=== PATIENT | male | born 1965 | race Caucasian/White ===

== ENCOUNTER 2019-12-15 12:57 | Outpatient (CLI) | payer BC, SELFPAY ==
[2019-12-15 11:30] LABS: Blood Urea Nitrogen 24 mg/dL (9-20); Calcium 9.3 mg/dL (8.4-10.2); Carbon Dioxide 26 mmol/L (22-30); Chloride 97 mmol/L (98-107); Estimated Glomerular Filt Rate > 60; Glucose 196 mg/dL (75-110); Potassium 4.2 mmol/L (3.4-5.0); Sodium 136 mmol/L (137-145)
== END 2019-12-15 12:58 | disposition home or self-care (01) ==
PROVIDERS: PCP Internal Medicine; Visit Provider Internal Medicine
DX: E11.10 Type 2 diabetes mellitus with ketoacidosis without coma (principal); E13.29 Other specified diabetes mellitus with other diabetic kidney complication
CPT/HCPCS: 36415; 80048; 84443

== ENCOUNTER 2020-07-17 13:17 | Outpatient (CLI) | payer BC, SELFPAY ==
[2020-07-17 14:13] LABS: Alanine Aminotransferase 21 U/L (4-50); Albumin Level 4.5 g/dL (3.5-5.1); Alkaline Phosphatase 71 U/L (38-126); Anion Gap 10 mmol/L (8-16); Aspartate Amino Transferase 21 U/L (17-59); Bilirubin,Total 0.5 mg/dL (0.2-1.3); Blood Urea Nitrogen 19 mg/dL (9-20); Calcium 9.8 mg/dL (8.4-10.2); Carbon Dioxide 29 mmol/L (22-30); Chloride 101 mmol/L (98-107); Cholesterol 119 mg/dL (0-200); Estimated Glomerular Filt Rate > 60; Glucose 155 mg/dL (75-110); HDL Direct 48 mg/dL; Potassium 4.5 mmol/L (3.4-5.0); Sodium 140 mmol/L (137-145); Triglycerides 69 mg/dL (<150)
[2020-07-17 14:23] LABS: LDL Cholesterol Direct 61 mg/dL
[2020-07-17 14:25] LABS: Hemoglobin A1C 8.1 % (<5.7)
[2020-07-17 14:42] LABS: Prostate Specific Antigen 1.3 ng/mL (< OR = 4.0)
== END 2020-07-17 13:18 | disposition home or self-care (01) ==
LOC: ANHLAB 13:20
PROVIDERS: PCP Internal Medicine; Visit Provider Nurse Practitioner
DX: E78.5 Hyperlipidemia, unspecified (principal); E11.9 Type 2 diabetes mellitus without complications; Z12.5 Encounter for screening for malignant neoplasm of prostate
CPT/HCPCS: 36415; 80053; 80061; 83036; 84153; G0103

== ENCOUNTER 2020-07-31 12:42 | Outpatient (CLI) | payer BC, SELFPAY ==
--- NOTE | ~2020-07-31 | MR_ITS ---
EXAMINATION: MR lumbar spine wo con EXAM DATE: 07/31/2020 13:54 INDICATION: Low back pain. TECHNIQUE: Multi-sequential, multiplanar MR images of the lumbar spine were obtained without contrast . Sagittal T1, T2, T2 fat saturation images. Axial T2 weighted images. There is no prior study for comparison. FINDINGS: There is moderate disc disease at L4-5 and L5-S1, mild to moderate at L2-3 and L3-4. There is 2 mm retrolisthesis L2 on L3 and L3 on L4 and L4 on L5. There is 3 mm retrolisthesis L5 on S1. The conus medullaris terminates at the L1 level and has normal signal intensity and morphology. There a re no suspicious marrow signal abnormalities. There is mild lumbar dextroscoliosis. Paraspinal soft t issue is unremarkable. Level by level evaluation: T12-L1: Disc does not extend beyond the endplate margin. Facet arthropathy: Mild. Neural foraminal stenosis: No stenosis. Central canal stenosis: No stenosis. L1-L2: Disc does not extend beyond the endplate margin. Facet arthropathy: Mild. Neural foraminal stenosis: No stenosis. Central canal stenosis: No stenosis. L2-L3: There is a mild diffuse disc bulge. Facet arthropathy: Mild. Neural foraminal stenosis: Minimal bilateral. Central canal stenosis: Mild. L3-L4: There is a moderate diffuse disc bulge. Facet arthropathy: Mild. Neural foraminal stenosis: Mild to moderate bilateral. Central canal stenosis: Mild. L4-L5: There is a moderate diffuse disc bulge. Facet arthropathy: Mild to moderate. Neural foraminal stenosis: Moderate right, mild to moderate left. Central canal stenosis: Mild. L5-S1: There is a mild diffuse disc bulge. Facet arthropathy: Mild. Neural foraminal stenosis: Mild to moderate right, mild left. Central canal stenosis: Mild. IMPRESSION: 1. Up to moderate lower lumbar spondylosis. 2. Mild dextroscoliosis. Reviewed, dictated and finalized at location A.
== END 2020-07-31 12:43 | disposition home or self-care (01) ==
PROVIDERS: PCP Internal Medicine; Visit Provider Internal Medicine
DX: G89.29 Other chronic pain (principal); M54.5 Low back pain; M47.26 Other spondylosis with radiculopathy, lumbar region
CPT/HCPCS: 72148

== ENCOUNTER 2021-06-03 12:03 | Outpatient (CLI) | payer BC, SELFPAY ==
[2021-06-03 13:26] LABS: Alanine Aminotransferase 30 U/L (4-50); Albumin Level 4.1 g/dL (3.5-5.1); Alkaline Phosphatase 83 U/L (38-126); Anion Gap 5 mmol/L (8-16); Bilirubin,Total 0.3 mg/dL (0.2-1.3); Blood Urea Nitrogen 18 mg/dL (9-20); Calcium 8.8 mg/dL (8.4-10.2); Carbon Dioxide 24 mmol/L (22-30); Chloride 105 mmol/L (98-107); Cholesterol 108 mg/dL (0-200); Estimated Glomerular Filt Rate > 60; Glucose 150 mg/dL (65-110); HDL Direct 45 mg/dL; Potassium 4.2 mmol/L (3.4-5.0); Sodium 134 mmol/L (137-145); Triglycerides 63 mg/dL (<150)
[2021-06-03 13:34] LABS: LDL Cholesterol Direct 48 mg/dL
[2021-06-03 13:48] LABS: Aspartate Amino Transferase 26 U/L (17-59)
[2021-06-03 15:28] LABS: Vitamin D 25 Hydroxy 64.7 ng/mL
[2021-06-03 17:56] LABS: Hemoglobin A1C 8.5 % (<5.7)
== END 2021-06-03 12:04 | disposition home or self-care (01) ==
LOC: ANHLAB 12:05
PROVIDERS: PCP Internal Medicine; Visit Provider Internal Medicine
DX: E11.9 Type 2 diabetes mellitus without complications (principal); I10 Essential (primary) hypertension; E55.9 Vitamin D deficiency, unspecified; E78.5 Hyperlipidemia, unspecified
CPT/HCPCS: 36415; 80053; 80061; 82306; 83036

== ENCOUNTER 2021-12-09 12:42 | Outpatient (CLI) | payer BC, SELFPAY ==
[2021-12-09 13:33] LABS: Alanine Aminotransferase 32 U/L (4-50); Albumin Level 4.4 g/dL (3.5-5.1); Alkaline Phosphatase 91 U/L (38-126); Anion Gap 9 mmol/L (8-16); Aspartate Amino Transferase 28 U/L (17-59); Bilirubin,Total 0.4 mg/dL (0.2-1.3); Blood Urea Nitrogen 17 mg/dL (9-20); Calcium 9.6 mg/dL (8.4-10.2); Carbon Dioxide 27 mmol/L (22-30); Chloride 104 mmol/L (98-107); Cholesterol 130 mg/dL (0-200); Estimated Glomerular Filt Rate > 60; Glucose 140 mg/dL (65-110); HDL Direct 42 mg/dL; Potassium 4.3 mmol/L (3.4-5.0); Sodium 140 mmol/L (137-145); Triglycerides 96 mg/dL (<150)
[2021-12-09 13:44] LABS: LDL Cholesterol Direct 62 mg/dL
[2021-12-09 14:06] LABS: Hemoglobin A1C 8.3 % (<5.7)
[2021-12-09 14:45] LABS: Prostate Specific Antigen 2.4 ng/mL (< OR = 4.0)
[2021-12-09 14:47] LABS: Vitamin D 25 Hydroxy 55.3 ng/mL
== END 2021-12-09 12:43 | disposition home or self-care (01) ==
LOC: ANHLAB 12:43
PROVIDERS: PCP Internal Medicine; Visit Provider Internal Medicine
DX: E11.42 Type 2 diabetes mellitus with diabetic polyneuropathy (principal); I10 Essential (primary) hypertension; Z79.4 Long term (current) use of insulin; E55.9 Vitamin D deficiency, unspecified; E78.5 Hyperlipidemia, unspecified; Z12.5 Encounter for screening for malignant neoplasm of prostate
CPT/HCPCS: 36415; 80053; 80061; 82306; 83036; 84153; G0103

== ENCOUNTER 2022-11-15 11:18 | Outpatient (CLI) | payer OTHER, SELFPAY ==
[2022-11-15 13:11] LABS: Alanine Aminotransferase 31 U/L (6-50); Albumin Level 4.1 g/dL (3.5-5.1); Alkaline Phosphatase 88 U/L (38-126); Anion Gap 7 mmol/L (8-16); Aspartate Amino Transferase 29 U/L (17-59); Bilirubin,Total 0.5 mg/dL (0.2-1.3); Blood Urea Nitrogen 15 mg/dL (9-20); Calcium 8.9 mg/dL (8.4-10.2); Carbon Dioxide 29 mmol/L (22-30); Chloride 104 mmol/L (98-107); Estimated Glomerular Filt Rate > 60; Glucose 145 mg/dL (65-110); Potassium 4.4 mmol/L (3.4-5.0); Sodium 140 mmol/L (137-145)
[2022-11-15 13:16] LABS: Creatinine Urine 173.7 mg/dL
[2022-11-15 13:19] LABS: Hemoglobin A1C 9.5 % (<5.7)
[2022-11-15 13:21] LABS: MALB Creatinine Ratio 33.4 mg/g (0-30)
[2022-11-15 13:48] LABS: Vitamin D 25 Hydroxy 38.9 ng/mL
== END 2022-11-15 11:19 | disposition home or self-care (01) ==
PROVIDERS: PCP Internal Medicine; Visit Provider Internal Medicine
DX: E78.5 Hyperlipidemia, unspecified (principal); E11.42 Type 2 diabetes mellitus with diabetic polyneuropathy; Z79.4 Long term (current) use of insulin; E55.9 Vitamin D deficiency, unspecified
CPT/HCPCS: 36415; 80053; 82043; 82306; 83036

== ENCOUNTER 2023-03-12 07:01 | Outpatient (CLI) | payer OTHER, SELFPAY ==
[2023-03-12 07:50] LABS: Alanine Aminotransferase 31 U/L (6-50); Albumin Level 4.3 g/dL (3.5-5.1); Alkaline Phosphatase 73 U/L (38-126); Anion Gap 4 mmol/L (8-16); Aspartate Amino Transferase 31 U/L (17-59); Bilirubin,Total 0.5 mg/dL (0.2-1.3); Blood Urea Nitrogen 18 mg/dL (9-20); Calcium 8.9 mg/dL (8.4-10.2); Carbon Dioxide 28 mmol/L (22-30); Chloride 104 mmol/L (98-107); Estimated Glomerular Filt Rate > 60; Glucose 196 mg/dL (65-110); Hemoglobin A1C 9.8 % (<5.7); Potassium 4.2 mmol/L (3.4-5.0); Sodium 136 mmol/L (137-145)
== END 2023-03-12 07:02 | disposition home or self-care (01) ==
PROVIDERS: Internal Medicine; PCP Family Medicine; Visit Provider Family Medicine
DX: E11.21 Type 2 diabetes mellitus with diabetic nephropathy (principal); I10 Essential (primary) hypertension
CPT/HCPCS: 36415; 80053; 83036

== ENCOUNTER 2023-06-08 01:07 | Day surgery (SDC) | payer OTHER, SELFPAY ==
[2023-05-25 10:01] VITALS: BMI 22.4
[2023-06-08 09:10] VITALS: BP 130/90; PULSE 78; RESP 18; TEMP 36.5; O2SAT 99
[2023-06-08] MEDS: LACTATED RINGERS 1,000 ML 150 ML IV CONT (09:30)
--- NOTE | 2023-06-08 09:33 | WPDANESEPPF ---
Anes - Initial Pre Proc Eval Procedure: Operation Date: 06/08/23 10:30 Proposed Procedures p Screening Colonoscopy - Prashanth Mora MD Date/Time: 06/08/23 09:33 Surgeon: Prashanth Mora MD Pre Op Diagnosis: neoplasm screening Patient Data Age: 57 Gender: M Height: 1.83 m Weight: 72 kg Last Vital Signs Temp 36.5 C 06/08/23 09:10 Pulse 78 06/08/23 09:10 Resp 18 06/08/23 09:10 BP 130/90 06/08/23 09:10 Pulse Ox 99 06/08/23 09:10 O2 Del Method Room Air 06/08/23 09:10 Allergies Allergy/AdvReac Type Severity Reaction Status Date / Time No Known Allergies Allergy Verified 06/08/23 09:09 Home Medications Medication Instructions Recorded Confirmed Type blood sugar diagnostic (Easy Touch #300 ea 01/04/20 05/25/23 Rx Test Strip) pen needle, diabetic 31 gauge x #200 ea 01/20/23 05/25/23 Rx 5/16 (Comfort EZ Pen [place]) atorvastatin 20 mg tablet 20 mg PO DAILY #90 tabs 03/17/23 05/25/23 Rx lisinopril 5 mg tablet 5 mg PO DAILY #90 tabs 03/17/23 05/25/23 Rx metformin 500 mg tablet 1,000 mg PO BID #360 tabs 03/17/23 05/25/23 Rx sertraline 50 mg tablet 50 mg PO DAILY #90 tabs 03/17/23 05/25/23 Rx sildenafil 50 mg tablet 50 mg PO DAILY PRN sexual activity 03/17/23 05/25/23 Rx #10 tabs trazodone 50 mg tablet 50 mg PO .prn #90 tabs 04/16/23 05/25/23 Rx hydrocodone 10 mg-acetaminophen 1 tablet PO .COMPLEX PRN pain #45 05/19/23 05/25/23 Rx 325 mg tablet tabs insulin glargine 100 unit/mL (3 42 unit (0.42 mL) subcut .COMPLEX 05/19/23 05/25/23 Rx mL) subcutaneous pen (Lantus #15 mL Solostar U-100 Insulin) Patient hx anesthesia problems: none Family hx anesthesia problems: none Results Review: All pre-operative results and documents have been reviewed as part of the pre-operative evaluation. [facility] Past Medical History Medical History Depression Erectile dysfunction associated with type 2 diabetes mellitus Essential (primary) hypertension Mixed hyperlipidemia Type 2 diabetes mellitus with diabetic polyneuropathy, with long-term current use of insulin Family History Family History Mother Patient's mother is in good health Sibling Patient's brother is in good health Father Patient's father is Social History Social History Smoking packs per day: 1 Smoking cigarettes per day: 20.0 Years smoked: 40 Smoking pack-years: 40.00 Smoking status: Current every day smoker Tobacco type: cigarettes Alcohol intake: never Substance use: current Substance use type: marijuana Other substance usage details: 3-4x/week Lack of Transportation: No Lack of Food: Never True Current Housing: I Have Housing Concerned About Future Housing: No Difficulty Paying Gas/Electric Bills: No Difficulty Paying for Meds: No Currently Unemployed: No Education: High School Diploma/GED Difficulty w/ Childcare or Family Care: No Living arrangements: with family Spiritual care concerns: No Anes - Eval Final PreProcedure Day of Procedure 06/08/23 09:33 Patient weight: normal Heart: regular rate and rhythm Lungs: clear to auscultation Airway: Mallampati scale class II Last oral intake: >/= 8 hours ASA classification: III Emergent: no Anesthetic plan: proceed Anesthesia type and monitoring: general GIVS and standard monitoring Results Review: All pre-operative results and documents have been reviewed as part of the pre-operative evaluation. Informed Consent: The patient's anesthetic plan and its attendant risks and benefits were discussed with the patient/family/POA. Questions were solicited and answers provided to the satisfaction of the patient/family/POA.
--- NOTE | 2023-06-08 10:08 | PM.HPGS ---
History of Present Illness History of Present Illness Consent: Risks, benefits, and alternatives have been discussed and questions answered. Patient agrees to proceed with procedure. Chief complaint: neoplasm screening Narrative: Adeel Ramos is a 57 year old male Presents for screening colonoscopy. Patient's current weight appetite and bowel movements are normal. Patient denies abdominal pain. He has had no bleeding. Family history noncontributory. This is for screening colonoscopy. Review of Systems Review of Systems: Review of systems noncontributory. [facility] Past Medical History Medical History Depression Erectile dysfunction associated with type 2 diabetes mellitus Essential (primary) hypertension Mixed hyperlipidemia Type 2 diabetes mellitus with diabetic polyneuropathy, with long-term current use of insulin Family History Family History Mother Patient's mother is in good health Sibling Patient's brother is in good health Father Patient's father is Social History Social History Smoking packs per day: 1 Smoking cigarettes per day: 20.0 Years smoked: 40 Smoking pack-years: 40.00 Smoking status: Current every day smoker Tobacco type: cigarettes Alcohol intake: never Substance use: current Substance use type: marijuana Other substance usage details: 3-4x/week Lack of Transportation: No Lack of Food: Never True Current Housing: I Have Housing Concerned About Future Housing: No Difficulty Paying Gas/Electric Bills: No Difficulty Paying for Meds: No Currently Unemployed: No Education: High School Diploma/GED Difficulty w/ Childcare or Family Care: No Living arrangements: with family Spiritual care concerns: No Meds Home Medications and Allergies Home Medications Medication Instructions Recorded Confirmed Type blood sugar diagnostic (Easy Touch #300 ea 01/04/20 05/25/23 Rx Test Strip) pen needle, diabetic 31 gauge x #200 ea 01/20/23 05/25/23 Rx 5/16 (Comfort EZ Pen [place]) atorvastatin 20 mg tablet 20 mg PO DAILY #90 tabs 03/17/23 05/25/23 Rx lisinopril 5 mg tablet 5 mg PO DAILY #90 tabs 03/17/23 05/25/23 Rx metformin 500 mg tablet 1,000 mg PO BID #360 tabs 03/17/23 05/25/23 Rx sertraline 50 mg tablet 50 mg PO DAILY #90 tabs 03/17/23 05/25/23 Rx sildenafil 50 mg tablet 50 mg PO DAILY PRN sexual activity 03/17/23 05/25/23 Rx #10 tabs trazodone 50 mg tablet 50 mg PO .prn #90 tabs 04/16/23 05/25/23 Rx hydrocodone 10 mg-acetaminophen 1 tablet PO .COMPLEX PRN pain #45 05/19/23 05/25/23 Rx 325 mg tablet tabs insulin glargine 100 unit/mL (3 42 unit (0.42 mL) subcut .COMPLEX 05/19/23 05/25/23 Rx mL) subcutaneous pen (Lantus #15 mL Solostar U-100 Insulin) Allergies Allergy/AdvReac Type Severity Reaction Status Date / Time No Known Allergies Allergy Verified 06/08/23 09:09 Vital Signs Vital Signs - 24 hr 06/08/23 09:10 Temperature 97.7 F Pulse Rate 78 Respiratory Rate 18 Blood Pressure 130/90 Pulse Oximetry 99 Oxygen Delivery Room Air Exam Narrative: physical exam reveals patient to be alert. Vital signs stable. HEENT exam is unremarkable. Patient is anicteric. Lungs are clear to auscultation and percussion. Heart is without murmur or extra sounds. Abdomen bowel sounds are present soft nontender with no organomegaly. Digital external rectal exam normal. Assessment and Plan Assessment and plan (1) Screening for colon cancer: Code(s): Z12.11 - Encounter for screening for malignant neoplasm of colon Status: Acute Assessment and Plan: Patient presents for screening colonoscopy. He appears to be at average risk for colon polyps. Further recommendations will be given after endoscopy.
[2023-06-08] MEDS: SIMETHICONE ORAL SUSPENSION 20 MG/0.3 ML 30 ML BOTTLE 0.6 ML IRRIGATION (10:28)
[2023-06-08 10:42] VITALS: BP 125/79; PULSE 67; RESP 21; O2SAT 100
[2023-06-08 10:52] VITALS: BP 132/80; PULSE 57; RESP 25; O2SAT 100
[2023-06-08 11:02] VITALS: BP 124/97; PULSE 59; RESP 25; O2SAT 99
[2023-06-08 17:16] LABS: Glucose Point of Care 216 mg/dl (65-105)
[2023-06-09 13:52] LABS: Glucose Point of Care 241 mg/dl (65-105)
== END 2023-06-08 11:09 | disposition home or self-care (01) ==
PROVIDERS: PCP Family Medicine; Visit Provider Internal Medicine Gastroenterology
PROC: 0DJD8ZZ Inspection of Lower Intestinal Tract, Via Natural or Artificial Opening Endoscopic (ICD-10-PCS; CPT 45378; principal; 2023-06-08 10:30)
DX: Z12.11 Encounter for screening for malignant neoplasm of colon (principal); D12.4 Benign neoplasm of descending colon; D12.8 Benign neoplasm of rectum; E11.42 Type 2 diabetes mellitus with diabetic polyneuropathy; I10 Essential (primary) hypertension; E78.5 Hyperlipidemia, unspecified; F32.A Depression, unspecified; F17.210 Nicotine dependence, cigarettes, uncomplicated; F12.90 Cannabis use, unspecified, uncomplicated; Z79.84 Long term (current) use of oral hypoglycemic drugs; Z79.4 Long term (current) use of insulin; Z79.891 Long term (current) use of opiate analgesic
CPT/HCPCS: 45385; 82948; 88305; J2704; J7120

== ENCOUNTER 2024-03-15 12:49 | Outpatient (CLI) | payer OTHER, SELFPAY ==
[2024-03-15 13:43] LABS: Hemoglobin A1C 9.8 % (<5.7)
[2024-03-16 23:54] LABS: Amphetamines NEGATIVE ng/mL (<500); Barbiturates NEGATIVE ng/mL (<300); Benzodiazepines NEGATIVE ng/mL (<100); Cocaine Metabolite NEGATIVE ng/mL (<150); Marijuana Metabolite POSITIVE ng/mL (<20); Methadone Metabolite NEGATIVE ng/mL (<100); Opiates POSITIVE ng/mL (<100); Oxidant NEGATIVE mcg/mL (<200); pH 5.1 (4.5-9.0)
== END 2024-03-15 12:50 | disposition home or self-care (01) ==
PROVIDERS: PCP Nurse Practitioner; Visit Provider Nurse Practitioner Family
DX: E11.21 Type 2 diabetes mellitus with diabetic nephropathy (principal); Z79.899 Other long term (current) drug therapy
CPT/HCPCS: 36415; 80307; 83036

== ENCOUNTER 2024-11-07 13:52 | Outpatient (CLI) | payer OTHER, SELFPAY ==
[2024-11-07 14:43] LABS: Hemoglobin A1C 9.9 % (<5.7)
--- OUTSIDE RECORDS SUMMARY | 2024-11-10 13:48 | XMS_ITS | Clinical Summary ---
Author Organization [facility] Address [address] [place] [address] Care Team Providers Care Quality Analyst/Technical Writer Name Role Phone Trell Crow Primary Care Provider [phone] Chris Caraballo MD Unavailable [phone] Allergies No known active allergies Medications insulin glargine 100 unit/mL (3 mL) pen for injection Inject 36 Units under the skin 2 (two) times a day as needed Active HYDROcodone-kimberly taminophen (NORCO) 7.5-325 mg per tabletIndicatio ns:Pain Take 1 tablet by mouth 2 (two) times a day Take 1 tab in the morning and 1/2 tab at night Active ondansetron (ZOFRAN) 4 mg tablet Take 1 tablet (4 mg total) by mouth 3 (three) times a day Active albuterol HFA (PROVENTIL HFA,VENTOLIN HFA,PROAIR HFA) 90 mcg/actuation inhaler Inhale 2 puffs every 4 (four) hours as needed for shortness of breath 4 Active nicotine polacrilex (NICORETTE) 2 mg gum Chew 1 each (2 mg total) every 4 (four) hours as needed for smoking cessation 100 each [address] (PROTONIX) 40 mg EC tabletIndicatio ns:GI Bleed,large gastric ulcers Take 1 tablet (40 mg total) by mouth 2 (two) times a day 60 tablet 5 4 03/13/20 25 Active blood-glucose meter,continuou s (Dexcom G7 Knock Up Assembler) misc Use as directed. 1 each 4 Active blood-glucose sensor (Dexcom G7 Sensor) device Use as directed. Change sensor every 10 days. 3 each 4 Active Active Problems Problem Noted Date Diagnosed Date Diabetic ketoacidosis withou t coma associated with type 2 diabetes mellitus (CMS/HCC) 09/09/2024 Upper abdominal pain 09/09/2024 Encounters Date Type Department Care Team Description 09/22/20 24 Telephone [facility] Gastroenterology at [address] [place] [id number] Stephanie Hayden 09/13/20 24 6:05 PM DEBLOCKER - 09/13/20 24 6:40 PM DEBLOCKER Surgery [address] [address] Chris Caraballo MD ESOPHAGOGASTRODUODENOSCOPY BIOPSY 09/13/20 3:29 PM DEBLOCKER Anesthesia Event [address] [address] Manish Burnett MD Kory, Christopher James, MD 09/09/20 6:20 PM DEBLOCKER - 09/14/20 24 3:22 PM DEBLOCKER Hospital Encounter [facility] IMU [address] [place] [address] Ortiz Treviño MD Masetti, Paolo, MD Sinha, Chandni, MD Nations, Matthew Austin, DO Diabetic ketoacidosis without coma associated with type 2 diabetes mellitus (CMS/HCC) (HCC) (Primary Dx); Lactic acidosis; Upper abdominal pain Discharge Disposition: Discharge to home or self care from Last 3 Months Social History Tobacco Use Types Packs/Day Years Used Date Smoking Tobacco: Every Day Cigarettes 1 40 Passive Smoke Exposure: Current Smokeless Tobacco: Current Tobacco Cessation:Ready to Q uit: Not Asked; Counseling Given: Not Answered Comments:Has not smoke in 5-6 days because not feeling well. Says he wants to quit . [facility] Utilities Answer Date Recorded In the past 12 months has e TRADE TO REBATE, gas, oil, or water [address] threatened to shut off services in your home? No 09/12/2024 Social Connection and Isolat ion Panel [NHANES] Answer Date Recorded In a typical week, how many times do you talk on the phone with family, friends, or neighbors? More than three times a week 09/12/2024 How often do you get togethe r with friends or relatives? More than three times a week 09/12/2024 How often do you attend chur ch or mu-ism services? Never 09/12/2024 Do you belong to any clubs o r organizations such as pentecostal groups, unions, fraternal or athletic groups, or school groups? No 09/12/2024 How often do you attend meet ings of the clubs or organizations you belong to? Never 09/12/2024 Are you , , di vorced, , never , or living with a partner? Living with partner 09/12/2024 Overall Financial Resource Strain (CARDIA) Answe r Date Recorded How hard is it for you to pa y for the very basics like food, housing, medical care, and heating? Not hard at all 09/12/2024 Hunger Vital Sign Answer Date Recorded Within the past 12 months, y ou worried that your food would run out before you got the money to buy more. Never true 09/12/20 24 Within the past 12 months, t he food you bought just didn't last and you didn't have money to get more. Never true 09/12/2024 PRAPARE - Transportation Answer Date Re corded In the past 12 months, has l ack of transportation kept you from medical appointments or from getting medications? No 08/20 In the past 12 months, has l ack of transportation kept you from meetings, work, or from getting things needed for daily living? No 09/12/2024 Housing Stability Vital Sign Answer Johnathan e Recorded In the last 12 months, was t here a time when you were not able to pay the mortgage or rent on time? No 09/12/2024 In the past 12 months, how m any times have you moved where you were living? 0 09/12/2024 At any time in the past 12 m [facility], were you homeless or living in a [place] facility (including now)? No 09/12/2024 Personal Safety Answer Date Recorded Have you ever been in or are you currently in a harmful physical or emotional relationship or is someone making you feel afraid or unsafe? Denies 09/13/2024 Sex and Gender Information Value Date Recorded Sex Assigned at Not on file Legal Sex Male 3:28 PM DEBLOCKER Gender Identity Not on file Sexual Orientation Not on file Obstetrics History Last Filed Vital Signs Vital Sign Reading Time Taken Comments Blood Pressure 128/64 09/14/2024 11:19 AM DEBLOCKER Pulse 64 09/14/2024 11:19 AM DEBLOCKER Temperature 36.7 ??C (98 ??F) 09/14/2024 11: 19 AM DEBLOCKER Respiratory Rate 18 09/14/2024 11:1 9 AM DEBLOCKER Oxygen Saturation 100% 09/14/2024 11: 19 AM DEBLOCKER Inhaled Oxygen Concentration - - Weight 70.6 kg (155 lb 10.3 oz) 024 10:25 PM DEBLOCKER Height 182.9 cm (6') 09/09/2024 10:25 PM DEBLOCKER Body Mass Index 21.11 09/09/2024 10:25 PM DEBLOCKER Plan of Treatment Health Maintenance Due Date Last Done Comments Albumin Creatinine Ratio, Urine 1965 Colon Cancer Screening-Colonoscopy 1965 Depression Screening 1965 Hemoglobin A1C 1965 Hepatitis C Screening 1965 Prostate Cancer Screening-PSA 1965 Dilated Eye Exam 1965 Foot Exam 1965 Pneumococcal vaccine <65 (1 of 2 - PCV) 1971 DTaP/Tdap/Td Vaccine (1 - Tdap) 1976 Hepatitis B Screening 1983 Regular Well Visit/Exam 18-64 1983 Lung Cancer Screening 2015 Zoster Vaccine (1 of 2) 2015 Lipid Panel 09/13/2025 09/13/2024 eGFR 09/14/2025 09/14/2024, 08/20, 09/12/2024, Additional history exists Covid-19 Vaccine Completed 08/07/2024, , 10/23/2021, Additional history exists Influenza Vaccine Completed 08/07/2024, , 08/26/2022, Additional history exists Procedures Procedure Name Priority Date/Time Associated Diagnosis Comments POCT GLUCOSE DEVICE Routine 09/14/2024 12:01 PM DEBLOCKER POCT GLUCOSE DEVICE Routine 09/14/2024 8:05 AM DEBLOCKER EGFR Routine 09/14/2024 2:45 AM DEBLOCKER COMPREHENSIVE METABOLIC PANEL Routine 2:45 AM DEBLOCKER POCT GLUCOSE DEVICE Routine 09/14/2024 2:11 AM DEBLOCKER POCT GLUCOSE DEVICE Routine 09/13/2024 8:18 PM DEBLOCKER POCT GLUCOSE DEVICE Routine 09/13/2024 4:43 PM DEBLOCKER ESOPHAGOGASTRODUODENOSCOPY BIOPSY 09/13/2024 3:23 PM DEBLOCKER Upper abdominal pain POCT GLUCOSE DEVICE Routine 09/13/2024 3:23 PM DEBLOCKER EGD 09/13/2024 2:39 PM DEBLOCKER POCT GLUCOSE DEVICE Routine 09/13/2024 11:59 AM DEBLOCKER SURGICAL PATHOLOGY STAT 09/13/2024 10:02 AM DEBLOCKER Upper abdominal pain POCT GLUCOSE DEVICE Routine 09/13/2024 8:10 AM DEBLOCKER US RUQ IP Routine 09/13/2024 7:35 AM DEBLOCKER EGFR Routine 09/13/2024 1:59 AM DEBLOCKER LIPID PANEL Routine 09/13/2024 1:59 AM DEBLOCKER COMPREHENSIVE METABOLIC PANEL Routine 1:59 AM DEBLOCKER POCT GLUCOSE DEVICE Routine 09/13/2024 1:51 AM DEBLOCKER POCT GLUCOSE DEVICE Routine 09/12/2024 8:45 PM DEBLOCKER POCT GLUCOSE DEVICE Routine 09/12/2024 4:23 PM DEBLOCKER POCT GLUCOSE DEVICE Routine 09/12/2024 3:35 PM DEBLOCKER POCT GLUCOSE DEVICE Routine 09/12/2024 3:10 PM DEBLOCKER POCT GLUCOSE DEVICE Routine 09/12/2024 12:20 PM DEBLOCKER POCT GLUCOSE DEVICE Routine 09/12/2024 7:56 AM DEBLOCKER POCT GLUCOSE DEVICE Routine 09/12/2024 2:10 AM DEBLOCKER EGFR Routine 09/12/2024 2:08 AM DEBLOCKER COMPREHENSIVE METABOLIC PANEL Routine 2:08 AM DEBLOCKER POCT GLUCOSE DEVICE Routine 09/11/2024 8:41 PM DEBLOCKER POCT GLUCOSE DEVICE Routine 09/11/2024 4:49 PM DEBLOCKER POCT GLUCOSE DEVICE Routine 09/11/2024 11:35 AM DEBLOCKER LIPASE Routine 09/11/2024 9:35 AM DEBLOCKER POCT GLUCOSE DEVICE Routine 09/11/2024 7:44 AM DEBLOCKER POCT GLUCOSE DEVICE Routine 09/11/2024 6:45 AM DEBLOCKER POCT GLUCOSE DEVICE Routine 09/11/2024 5:55 AM DEBLOCKER POCT GLUCOSE DEVICE Routine 09/11/2024 4:47 AM DEBLOCKER EGFR Routine 09/11/2024 3:48 AM DEBLOCKER DIFFERENTIAL AUTO Routine 09/11/2024 3:48 AM DEBLOCKER CBC WITH AUTO DIFFERENTIAL Routine 09/11 3:48 AM DEBLOCKER COMPREHENSIVE METABOLIC PANEL Routine 3:48 AM DEBLOCKER POCT GLUCOSE DEVICE Routine 09/11/2024 3:42 AM DEBLOCKER POCT GLUCOSE DEVICE Routine 09/11/2024 2:33 AM DEBLOCKER POCT GLUCOSE DEVICE Routine 09/11/2024 1:20 AM DEBLOCKER EGFR Timed 09/11/2024 12:37 AM DEBLOCKER BASIC METABOLIC PANEL Timed 09/11/2024 12:37 AM DEBLOCKER POCT GLUCOSE DEVICE Routine 09/11/2024 12:17 AM DEBLOCKER POCT GLUCOSE DEVICE Routine 09/10/2024 11:10 PM DEBLOCKER POCT GLUCOSE DEVICE Routine 09/10/2024 10:05 PM DEBLOCKER POCT GLUCOSE DEVICE Routine 09/10/2024 9:02 PM DEBLOCKER POCT GLUCOSE DEVICE Routine 09/10/2024 8:00 PM DEBLOCKER POCT GLUCOSE DEVICE Routine 09/10/2024 6:45 PM DEBLOCKER EGFR Timed 09/10/2024 6:43 PM DEBLOCKER BASIC METABOLIC PANEL Timed 09/10/2024 6:43 PM DEBLOCKER POCT GLUCOSE DEVICE Routine 09/10/2024 5:44 PM DEBLOCKER POCT GLUCOSE DEVICE Routine 09/10/2024 4:43 PM DEBLOCKER POCT GLUCOSE DEVICE Routine 09/10/2024 3:45 PM DEBLOCKER POCT GLUCOSE DEVICE Routine 09/10/2024 2:47 PM DEBLOCKER POCT GLUCOSE DEVICE Routine 09/10/2024 1:48 PM DEBLOCKER POCT GLUCOSE DEVICE Routine 09/10/2024 1:08 PM DEBLOCKER EGFR Timed 09/10/2024 12:36 PM DEBLOCKER BASIC METABOLIC PANEL Timed 09/10/2024 12:36 PM DEBLOCKER POCT GLUCOSE DEVICE Routine 09/10/2024 11:[address] ABDOMEN PELVIS WO CONTRAST IP Routine 10:10 AM DEBLOCKER POCT GLUCOSE DEVICE Routine 09/10/2024 9:49 AM DEBLOCKER MRSA ONLY (STAPHYLOCOCCUS AUREUS) PCR Routine 09/10/2024 9:06 AM DEBLOCKER POCT GLUCOSE DEVICE Routine 09/10/2024 8:47 AM DEBLOCKER LIPASE Routine 09/10/2024 8:07 AM DEBLOCKER AMYLASE Routine 09/10/2024 8:07 AM DEBLOCKER CORTISOL Routine 09/10/2024 8:07 AM DEBLOCKER LACTATE Routine 09/10/2024 8:07 AM DEBLOCKER POCT GLUCOSE DEVICE Routine 09/10/2024 7:46 AM DEBLOCKER POCT GLUCOSE DEVICE Routine 09/10/2024 6:41 AM DEBLOCKER POCT GLUCOSE DEVICE Routine 09/10/2024 5:39 AM DEBLOCKER POCT GLUCOSE DEVICE Routine 09/10/2024 4:40 AM DEBLOCKER POCT GLUCOSE DEVICE Routine 09/10/2024 3:35 AM DEBLOCKER EGFR Timed 09/10/2024 2:36 AM DEBLOCKER SEPSIS LACTATE WITH REFLEX Timed 09/10 2:36 AM DEBLOCKER TROPONIN T HIGH-SENSITIVITY 6-HOUR Timed 09/10/2024 2:36 AM DEBLOCKER BASIC METABOLIC PANEL Timed 09/10/2024 2:36 AM DEBLOCKER POCT GLUCOSE DEVICE Routine 09/10/2024 2:30 AM DEBLOCKER POCT GLUCOSE DEVICE Routine 09/10/2024 1:33 AM DEBLOCKER TSH Add-On 09/10/2024 1:08 AM DEBLOCKER CREATINE KINASE (CK), TOTAL Add-On 08/20 1:08 AM DEBLOCKER BLOOD CULTURE STAT 09/10/2024 1:08 AM DEBLOCKER BLOOD CULTURE STAT 09/10/2024 1:08 AM DEBLOCKER CRITICAL CARE Routine 09/10/2024 12:51 AM DEBLOCKER Diabetic ketoacidosis without coma associated with type 2 diabetes mellitus ([facility]/HCC) (HCC) Lactic acidosis GLUCOSE, WHOLE BLOOD STAT 09/10/2024 12:27 AM DEBLOCKER TROPONIN T HIGH-SENSITIVITY 4-HR Timed 09/10/2024 12:27 AM DEBLOCKER POTASSIUM LEVEL Timed 09/10/2024 12:27 AM DEBLOCKER POCT GLUCOSE DEVICE Routine 09/09/2024 11:45 PM DEBLOCKER GLUCOSE, RANDOM Timed 09/09/2024 11:17 PM DEBLOCKER TROPONIN T HIGH-SENSITIVITY 2-HOUR Routine 09/09/2024 11:17 PM DEBLOCKER POTASSIUM LEVEL Timed 09/09/2024 11:17 PM DEBLOCKER SEPSIS LACTATE WITH REFLEX Timed 09/09 11:17 PM DEBLOCKER GLUCOSE, RANDOM Timed 09/09/2024 9:52 PM DEBLOCKER POCT GLUCOSE DEVICE Routine 09/09/2024 9:48 PM DEBLOCKER ECG 12-LEAD STAT 09/09/2024 9:37 PM DEBLOCKER URINALYSIS, MICROSCOPIC ONLY STAT 9:30 PM DEBLOCKER DRUGS OF ABUSE SCREEN, URINE WITHOUT CONFIRMATION STAT 09/09/2024 9:30 PM DEBLOCKER URINALYSIS AND REFLEX TO MICROSCOPIC AND CULTURE STAT 09/09/2024 9:30 PM DEBLOCKER NM CRITICAL CARE ILL/INJURED PATIENT INIT 30-74 MIN Routine 09/09/2024 9:00 PM DEBLOCKER POCT GLUCOSE DEVICE Routine 09/09/2024 8:49 PM DEBLOCKER BLOOD GAS, ARTERIAL STAT 09/09/2024 8:29 PM DEBLOCKER EGFR STAT 09/09/2024 8:07 PM DEBLOCKER BLOOD GAS, VENOUS STAT 09/09/2024 8:07 PM DEBLOCKER TROPONIN T HIGH-SENSITIVITY SERIES (BASELINE, 2HR, 4HR, 6HR) STAT 09/09/2024 8:07 PM DEBLOCKER SEPSIS LACTATE WITH REFLEX STAT 09/09 8:07 PM DEBLOCKER LIPASE STAT 09/09/2024 8:07 PM DEBLOCKER ETHANOL STAT 09/09/2024 8:07 PM DEBLOCKER COMPREHENSIVE METABOLIC PANEL STAT 8:07 PM DEBLOCKER XR CHEST 1 VIEW ED 09/09/2024 7:53 PM DEBLOCKER POCT GLUCOSE DEVICE Routine 09/09/2024 7:40 PM DEBLOCKER INFLUENZA A/B, RSV, AND COVID-19 PCR Routine 09/09/2024 7:29 PM DEBLOCKER ECG 12-LEAD STAT 09/09/2024 7:23 PM DEBLOCKER MANUAL DIFFERENTIAL STAT 09/09/2024 6:34 PM DEBLOCKER EGFR Timed 09/09/2024 6:34 PM DEBLOCKER CBC WITH AUTO DIFFERENTIAL STAT 09/09 6:34 PM DEBLOCKER BASIC METABOLIC PANEL Timed 09/09/2024 6:34 PM DEBLOCKER POCT GLUCOSE DEVICE Routine 09/09/2024 6:17 PM DEBLOCKER from Last 3 Months Results * (ABNORMAL) POCT glucose (09/14/2024 12:01 PM DEBLOCKER) Glucose, POC 263(H) 70 - 199 mg/dL Blood 09/14/2024 12:0 1 PM DEBLOCKER 09/14/2024 12:01 PM DEBLOCKER Jose Morgan [facility] DO LAB POCT ORDERABLES - DEVICE Final Result Performing Organization Address City/[facility]/ZIP Co de Phone Number ADELITA DENIS ([place]) 1 [facility] [place] [address] * POCT glucose (09/14/2024 8:05 AM DEBLOCKER) Glucose, POC 168 70 - 199 mg/dL Blood 09/14/2024 8:05 AM DEBLOCKER 09/14/2024 8:05 AM DEBLOCKER Jose Morgan [facility] DO LAB POCT ORDERABLES - DEVICE Final Result ADELITA BARRIOS ([place]) 1 [facility] Department [place] [address] * eGFR (09/14/2024 2:45 AM DEBLOCKER) Pathologist [facility] eGFR >90 >=60 mL/min/1. 73 m2 Comment: Interpretive Data Reference Interval Normal ?>/= 90 mL/min/1.73m2 Mildly decreased* ? 60 - 89 mL/min/1.73m2 Mildly to moderately decreased ?45 - 59 mL/min/1.73m2 Moderately to severely decreased ??30 - 44 mL/min/1.73m2 Severely decreased ?15 - 29 mL/min/1.73m2 Kidney Failure ?< 15 ??mL/min/1.73m2 *Relative to young adult level Estimated glomerular filtration rate is determined by the 2020 CKD-EPI equation recommended by the National Kidney Foundation (A Unifying Approach to GFR Estimation: Recommendations of the NKF-ASK Task Force on Reassessing the Inclusion of Race in Diagnosing Kidney Disease, JASN 2020). The CKD-EPI equation should not be used for patients with unstable renal function and has not been validated in children and those over 70. Current interpretive data was last reviewed 2021. Blood 09/14/2024 2:45 AM DEBLOCKER 09/14/2024 3:57 AM DEBLOCKER us Chris Caraballo MD LAB BLOOD ORDERABLES Final Result ADELITA BARRIOS ([place]) 1 [facility] Department [place] [address] * (ABNORMAL) Comprehensive metabolic panel (09/14/2024 2:45 AM DEBLOCKER) [facility] Sodium 140 135 - 145 mmol/L Potassium, pl 3.5 3.3 - 4.9 mmol/L [facility] ([place]) Chloride 106 97 - 110 mmol/L [facility] ([place]) CO2 26 22 - 32 mmol/L [facility] ([place]) Anion gap 8 2 - 15 mmol/L [facility] ([place]) BUN 7 6 - 25 mg/dL [facility] ([place]) Creatinine 0.59(L) 0.80 - 1.30 mg/dL [facility] ([place]) Glucose 176 70 - 199 mg/dL [facility] ([place]) Comment: Interpretive Data Fasting glucose >/= 126 mg/dl is diagnostic for diabetes. ?? Fasting is defined as no caloric intake for at least 8 hours. Fasting glucose between 100 mg/dl to 125 mg/dl is diagnostic of prediabetes. In a patient with classic symptoms of hyperglycemia or hyperglycemic crisis, a random glucose >/= 200 mg/dl is diagnostic for diabetes. In the absence of unequivocal hyperglycemia, results should be confirmed by repeat testing. The classification and Diagnosis of Diabetes Diabetes Care 2021; 46: S19-S40. Current interpretive data was last revised 2022. Calcium 7.8(L) 8.5 - 10.3 mg/dL [facility] ([place]) Bilirubin, total 0.5 0.1 - 1.2 mg/dL [facility] ([place]) Protein, pl 5.0(L) 6.5 - 8.5 g/dL [facility] ([place]) Albumin 2.8(L) 3.5 - 5.0 g/dL [facility] ([place]) Alk phos 90 40 - 130 Units/L [facility] ([place]) ALT 24 7 - 55 Units/L [facility] ([place]) AST 25 10 - 50 Units/L [facility] ([place]) Blood 09/14/2024 2:45 AM DEBLOCKER 09/14/2024 3:57 AM DEBLOCKER us Chris Caraballo MD LAB BLOOD ORDERABLES Final Result [facility] ([place]) 1 [facility] Department [place] [address] * POCT glucose (09/14/2024 2:11 AM DEBLOCKER) Glucose, POC 86 70 - 199 mg/dL Blood 09/14/2024 2:11 AM DEBLOCKER 09/14/2024 2:11 AM DEBLOCKER Jose Donnelly DO LAB POCT ORDERABLES - DEVICE Final Result Performing Organization Address City/[facility]/ZIP Co de Phone Number ADELITA BARRIOS ([place]) 1 [facility] [employer] [place] [address] * POCT glucose (09/13/2024 8:18 PM DEBLOCKER) Glucose, POC 165 70 - 199 mg/dL Blood 09/13/2024 8:18 PM DEBLOCKER 09/13/2024 8:18 PM DEBLOCKER Jose Donnelly DO LAB POCT ORDERABLES - DEVICE Final Result Performing Organization Address [facility]/ZIP Co de Phone Number [facility] ([place]) 1 [facility] [employer] [place] [address] * POCT glucose (09/13/2024 4:43 PM DEBLOCKER) Glucose, POC 179 70 - 199 mg/dL Blood 09/13/2024 4:43 PM DEBLOCKER 09/13/2024 4:43 PM DEBLOCKER Jose Donnelly DO LAB POCT ORDERABLES - DEVICE Final Result Performing Organization Address City/[facility]/ZIP Co de Phone Number [facility] ([place]) 1 [facility] [employer] [place] [address] * POCT glucose (09/13/2024 3:23 PM DEBLOCKER) Glucose, POC 101 70 - 199 mg/dL Blood 09/13/2024 3:23 PM DEBLOCKER 09/13/2024 3:23 PM DEBLOCKER Jose Donnelly DO LAB POCT ORDERABLES - DEVICE Final Result [facility] [place] 1 [facility] Department [place] [address] * EGD (09/13/2024 2:39 PM DEBLOCKER) Anatomical Region Laterality Modality Other Narrative Procedure Note Chris Caraballo MD - 09/13/2024 2:39 PM CST [facility] Patient Name: Mckenna Ramos Procedure Date: 09/13/2024 2:39 PM Date of : 1965 Admit Type: Inpatient Age: 58 Gender: Male Attending MD: Chris Caraballo M.D. Room: [facility] ENDOSCOPY ROOM 1 Note Status: Finalized Patient Profile: This is a 58 year old male. Patient admitted with diabetic ketoacidosis, was having abdominal painand CT showed the changes of mild pancreatitis. Patient continued to have upper abdominal pain. EGD for evaluation Procedure: Upper GI endoscopy Indications: Upper abdominal pain Referring MD: Trell Crow D.O. Providers: Chris Caraballo M.D. Impression: - Acute erosive gastritis and duodenitis in thebulb. - Three medium to large gastric ulcers. Biopsied. - Moderate esophagitis. Biopsied. - Clear liquid diet today. Will slowly advance dietto full liquid diet then low-fat soft diet. Recommendation: - Use Protonix (pantoprazole) 40 mg PO BID for 6 months. - Repeat upper endoscopy in 4 months to evaluatethe response to therapy. Medicines: Monitored Anesthesia Care Complications: No immediate complications. Estimated Blood Loss: Estimated blood loss: none. Procedure: Pre-Anesthesia Assessment: - Prior to the procedure, a History and Physicalwas performed, and patient medications and allergieswere reviewed. The patient's tolerance of previous anesthesia was also reviewed. The risks andbenefits of the procedure and the sedation options and risks were discussed with the patient. All questions were answered, and informed consent was obtained. Prior Anticoagulants: The patient has taken noanticoagulant or antiplatelet agents. ASA Grade Assessment: III -A patient with severe systemic disease. Afterreviewing the risks and benefits, the patient was deemed in satisfactory condition to undergo the procedure. The benefits, risks, and alternatives to theprocedure and sedation were discussed and informed consentwas obtained. The scope was passed under direct vision. The Endoscope [id number] was introduced through the mouth, and advanced to the third partof duodenum. The upper GI endoscopy was accomplished without difficulty. The patient tolerated the procedure well. Findings: The second portion of the duodenum was normal. Scattered moderate inflammation characterized by congestion (edema), erosions and erythema was found in the duodenal bulb. Three non-bleeding cratered gastric ulcers with pigmented materialwere found in the prepyloric region of the stomach. The largest lesion was16 mm in largest dimension. Biopsies were taken with a cold forceps for histology. The gastric body and fundus were normal. Retroflexionstomach in the the cardia was normal LA Grade B (one or more mucosal breaks greater than 5 mm, notextending between the tops of two mucosal folds) esophagitis with no bleedingwas found 43 cm from the incisors. Biopsies were taken with a coldforceps for histology. Electronically signed by Chris Caraballo M.D. Chris Caraballo M.D. 09/13/2024 3:45:54 PM Number of Addenda: 0 Note Initiated On: 09/13/2024 2:39 PM Procedure Code(s): --- Professional --- 98511, Esophagogastroduodenoscopy, flexible, transoral; with biopsy, single or multiple Diagnosis Code(s): --- Professional --- K29.80, Duodenitis without bleeding K25.9, Gastric ulcer, unspecified as acute or chronic, without hemorrhage or perforation K21.00, Gastro-esophageal reflux disease with esophagitis, without bleeding R10.10, Upper abdominal pain, unspecified CPT copyright 2020 [employer]. All rights reserved. The codes documented in this report are preliminary and upon boiler helper reviewmay be revised to meet current compliance requirements. Recognized by the [employer] for promoting quality in endoscopy us Chris Caraballo MD ENDOSCOPY PROCEDURES Final Result * POCT glucose (09/13/2024 11:59 AM DEBLOCKER) Glucose, POC 117 70 - 199 mg/dL Blood 09/13/2024 11:5 9 AM DEBLOCKER 09/13/2024 11:59 AM DEBLOCKER Jose Donnelly DO LAB POCT ORDERABLES - DEVICE Final Result [facility] ([place]) 1 [facility] Department [place] [address] * Surgical pathology (09/13/2024 10:02 AM DEBLOCKER) Tissue (Gastric/Stomach biopsy) 09/13/2024 3:35 PM DEBLOCKER Tissue ([place], Biopsy) 09/13/2024 3:36 PM DEBLOCKER Narrative PATHOLOGY [facility] ([place]) - 09/19/2024 4:59 PM DEBLOCKER EPIC results best viewed via link to PDF [facility] Department of Pathology [address] [place] [id number] Note to Patients: This report may contain a detailed description of human tissue sent by a health care provider to the laboratory for pathologic evaluation. The content of this report is essential for diagnosis and may provide important critical findings. This information may be unfamiliar to patients to review without a medical professional present. It is advised that the patient review this report in the presence of a health care provider who can answer questions and explain the details. Final Report with Addendum Patient Name: ??MCKENNA RAMOS Address: ??[address], ??[place], [place] [address] Gender: ??M : ??1965 (Age: 58) Service: ??Medical Location: ??[facility] Hospital #: ??[id number] Patient Type: ??[facility] Accession # ?[id number] Taken: ??09/13/2024 Received: ??09/14/2024 Accessioned: ??09/14/2024 Reported: ??09/19/2024 Physician(s):Dr. Chris Caraballo M.D. Diagnosis: A. Stomach, gastric ulcer, endoscopic biopsy- ? Superficial fragments of benign gastric mucosa demonstrating erosive esophagitis including ?detached necroinflammatory debris ? IHC stain pending for Helicobacter organisms B. ??GE junction, endoscopic biopsy- ? Benign squamous mucosa demonstrating acute erosive esophagitis ? Changes consistent with reflux esophagitis ? Negative for intestinal metaplasia/Rene's mucosa Sarah Nunez M.D. Report Electronically Reviewed and Signed Out By ??Sarah Nunez M.D. ??09/19/2024 16:59:39 Procedure/Addenda: Addendum Addendum Comment IHC Stain for Helicobacter with appropriate control also reviewed is negative. ? Sarah Nunez M.D.Report Electronically Reviewed and Signed Out By ??Sarah Nunez M.D. ??09/20/2024 11:52:09 ?? Specimen(s) Received: A: Gastric ulcer biopsies B: GE junction biopsies Microscopic Description: Microscopic examination corroborates the diagnosis. ??IHC stain for Helicobacter with appropriate control also reviewed is pending. ?? Clinical History: Upper abdominal pain. ??EGD. Gross Description: The specimen is submitted in two formalin containers labeled MCKENNA RAMOS . A. ??The first container is labeled gastric ulcer . It is 3 fragments of eubanks tissue between <1 and 3 mm. All in A. B. ??The second container is labeled GE junction . It is 3 fragments of eubanks tissue between <1 and 3 mm. All in B. T.A. Natasha Ravi., P.Melecio./Sarah Nunez M.D. REPORT IMAGES AND SCANNED DOCUMENTS, IF INCLUDED, ONLY VIEWABLE IN PDF VERSION OF REPORT The performance characteristics of some immunohistochemical stains, fluorescence in-situ hybridization tests and immunophenotyping by flow cytometry cited in this report (if any) were determined by the Surgical Pathology Department at [facility] as part of an ongoing quality assurance coach program and in compliance with federally mandated regulations drawn from the Clinical Laboratory Improvement Act of 1988 (CLIA '88). ??Some of these tests rely on the use of analyte specific reagents and are subject to specific labeling requirements by the US Food and Drug Administration. ??Such diagnostic tests may only be performed in a facility that is certified by the Department of Health and Human Services as a high complexity laboratory under CLIA '88. The FDA has determined that such clearance or approval is not necessary. ??This test is used for clinical purposes. ??It should not be regarded as investigational or for research. ??Nevertheless, federal rules concerning the medical use of analyte specific reagents require that the following disclaimer be attached to the report: This test was developed and its performance characteristics determined by the Surgical Pathology Department [facility]. ??It has not been cleared or approved by the U. S. Food and Drug Administration. Note for decalcified specimens: This assay has not been validated on decalcified tissues. Results should be interpreted with caution given the possibility of false negativity on decalcified specimens us Chris Caraballo MD LAB PATHOLOGY ORDERABLES F inal Result PATHOLOGY [facility] ([place] [address] [place] [address] * POCT glucose (09/13/2024 8:10 AM DEBLOCKER) Glucose, POC 151 70 - 199 mg/dL Blood 09/13/2024 8:10 AM DEBLOCKER 09/13/2024 8:10 AM DEBLOCKER us Jose Donnelly DO LAB POCT ORDERABLES - DEVICE Final Result [facility] ([place]) 1 [facility] Department [place] [address] * US RUQ (09/13/2024 7:35 AM DEBLOCKER) Anatomical Region Laterality Modality Abdomen N/A Ultrasound 09/13/2024 9:47 AM DEBLOCKER Narrative 09/13/2024 9:52 AM DEBLOCKER EXAM DESCRIPTION: ?? US RUQ REASON FOR STUDY: ?? Pancreatitis ?? TECHNIQUE: Ultrasound of the right upper quadrant of the abdomen was performed with grayscale and color doppler. COMPARISON: ?? 09/10/2024 CT abdomen pelvis FINDINGS: PANCREAS: ?? Normal size. ??Slightly heterogeneous echotexture of the pancreas is nonspecific could be considered with history of pancreatitis. ??Pancreatic duct is normal in diameter measuring 0.19 cm. ??No focal calcifications identified. LIVER: ?? The liver appears normal in echotexture and echogenicity. No focal lesion identified. The main portal vein is patent with antegrade flow. Minimal amounts of the adjacent free fluid. GALLBLADDER: ?? Partially distended. ??No surrounding fluid collection. ??Slight wall thickening measuring 0.4 cm. ??No tenderness reported while scanning the gallbladder fundus. ??Please correlate clinically to exclude cholecystitis. ?? BILIARY: ?? There is no intrahepatic or extrahepatic biliary ductal dilatation. Common bile duct measures ??0.51 cm ??in diameter. RIGHT KIDNEY: ?? Normal size. Normal echogenicity. No solid mass or cyst. ??No hydronephrosis. ??Measures ??12.8 ??cm in length. OTHER: ?? No other significant findings. IMPRESSION: No biliary ductal dilatation. Mild gallbladder wall thickening without tenderness while scanning. Heterogeneous echotexture of pancreas is nonspecific. Please correlate clinically to exclude pancreatitis. THIS IS AN ELECTRONICALLY VERIFIED FINAL REPORT 09/13/2024 9:52 AM - Electronically signed by ??Jarred Robison M.D. RB: TARYN D: ??09/13/2024 9:52 AM T: ??09/13/2024 9:52 AM Report ID: [id number] Reading Location: ??[id number] Procedure Note Jarred Robison MD - 09/13/2024 EXAM DESCRIPTION: US RUQ REASON FOR STUDY: Pancreatitis TECHNIQUE: Ultrasound of the right upper quadrant of the abdomen wasperformed with grayscale and color doppler. COMPARISON: 09/10/2024 CT abdomen pelvis FINDINGS: PANCREAS: Normal size. Slightly heterogeneous echotexture of thepancreas is nonspecific could be considered with history of pancreatitis.Pancreatic duct is normal in diameter measuring 0.19 cm. No focal calcifications identified. LIVER: The liver appears normal in echotexture and echogenicity. Nofocal lesion identified. The main portal vein is patent with antegrade flow. Minimal amounts of the adjacent free fluid. GALLBLADDER: Partially distended. No surrounding fluid collection.Slight wall thickening measuring 0.4 cm. No tenderness reported while scanningthe gallbladder fundus. Please correlate clinically to exclude cholecystitis. BILIARY: There is no intrahepatic or extrahepatic biliary ductaldilatation. Common bile duct measures 0.51 cm in diameter. RIGHT KIDNEY: Normal size. Normal echogenicity. No solid mass or cyst.No hydronephrosis. Measures 12.8 cm in length. OTHER: No other significant findings. IMPRESSION: No biliary ductal dilatation. Mild gallbladder wall thickening without tenderness while scanning. Heterogeneous echotexture of pancreas is nonspecific. Please correlate clinically to exclude pancreatitis. THIS IS AN ELECTRONICALLY VERIFIED FINAL REPORT 09/13/2024 9:52 AM - Electronically signed by Jarred Robison M.D. RB: TARYN Report ID: [id number] Reading Location: [id number] us Chris Caraballo MD IMG US PROCEDURES Final Re sult * eGFR (09/13/2024 1:59 AM DEBLOCKER) eGFR >90 >=60 mL/min/1. 73 m2 Comment: Interpretive Data Reference Interval Normal ?>/= 90 mL/min/1.73m2 Mildly decreased* ? 60 - 89 mL/min/1.73m2 Mildly to moderately decreased ?45 - 59 mL/min/1.73m2 Moderately to severely decreased ??30 - 44 mL/min/1.73m2 Severely decreased ?15 - 29 mL/min/1.73m2 Kidney Failure ?< 15 ??mL/min/1.73m2 *Relative to young adult level Estimated glomerular filtration rate is determined by the 2020 CKD-EPI equation recommended by the National Kidney Foundation (A Unifying Approach to GFR Estimation: Recommendations of the NKF-ASK Task Force on Reassessing the Inclusion of Race in Diagnosing Kidney Disease, JASN 2020). The CKD-EPI equation should not be used for patients with unstable renal function and has not been validated in children and those over 70. Current interpretive data was last reviewed 2021. Blood 09/13/2024 1:59 AM DEBLOCKER 09/13/2024 2:06 AM DEBLOCKER us Alexey Zhong MD LAB BLOOD ORDERABLES Final Resu lt [facility] ([place]) 1 [facility] Department [place] [address] * (ABNORMAL) Lipid panel (09/13/2024 1:59 AM DEBLOCKER) Pathologist [facility] Cholesterol 88 30 - 199 mg/dL Comment: Interpretive Data Ages < or = 19 years ??Acceptable: ? <170 mg/dL ??Borderline high: ??170-199 mg/dL ??High: ? >or= 200 mg/dL Ages > or = 20 years ??Desirable: ?<200 mg/dL ??Borderline high: ??200-239 mg/dL ??High: ? >or= 240 mg/dL Literature References: 1. Expert Panel on Integrated Guidelines for Cardiovascular Health and Risk Reduction in Children and Adolescents. Pediatrics 2011;128:S213 2. NCEP Expert Panel. Circulation 2004;110:227 Current Interpretive Data was last revised on 2018. Triglycerides 92 <=149 mg/dL [facility]) Comment: Interpretive Data Ages < or = 9 years ??Acceptable: ? <75 mg/dL ??Borderline high: ??75-99 mg/dL ??High: ? >or= 100 mg/dL Ages 10 to 20 years ??Acceptable: ? <90 mg/dL ??Borderline high: ??90-129 mg/dL ??High: ? >or= 130 mg/dL Ages > or = 20 years ??Desirable: ?<150 mg/dL ??Borderline high: ??150-199 mg/dL ??High: ? 200-499 mg/dL ?Very high: ?? >or= 499 mg/dL Literature References: 1. Expert Panel on Integrated Guidelines for Cardiovascular Health and Risk Reduction in Children and Adolescents. Pediatrics 2011;128:S213 2. NCEP Expert Panel. Circulation 2004;110:227 Current Interpretive Data was last revised on 2018. HDL 31(L) >=40 mg/dL [facility]LL[facility]) Comment: Interpretive Data Ages < or = 19 years ??Acceptable: ? >45 mg/dL ??Borderline low: ?? 40-45 mg/dL ??Low: ? <40 mg/dL Ages > or = 20 years ??Desirable: ?>or= 60 mg/dL ??Low: ? <40 mg/dL Literature References: 1. Expert Panel on Integrated Guidelines for Cardiovascular Health and Risk Reduction in Children and Adolescents. Pediatrics 2011;128:S213 2. NCEP Expert Panel. Circulation 2004;110:227 Current Interpretive Data was last revised on 2018. LDL, calculated 39 <=129 mg/dL [facility] ([place]) Comment: Interpretive Data Ages < or = 19 years ??Acceptable: ? <110 mg/dL ??Borderline high: ??110-129 mg/dL ??High: ?>or= 130 mg/dL Ages > or = 20 years ??Optimal: ? <100 mg/dL ??Near optimal: ?100-129 mg/dL ??Borderline high: ?? 130-159 mg/dL ??High: ?>160 mg/dL Calculated using the Yordan LDL-C estimating equation. This equation was implemented on 2024. Prior to this date LDL-C was estimated using the Friedewald equation. Literature References: 1. Expert Panel on Integrated Guidelines for Cardiovascular Health and Risk Reduction in Children and Adolescents. Pediatrics 2011;128:S213 2. NCEP Expert Panel. Circulation 2004;110:227 3. Yordan Carreon et al. LEILANI Cardiol. 2020 February 16;5(5):540-548. doi: 10.1001/jamacardio.2020.0013 Current Interpretive Data was last revised on 2024. Non-HDL Cholesterol 57 mg/dL [facility] ([place]) Comment: Interpretive Data Ages < or = 19 years ??Acceptable: ?<120 mg/dL ??Borderline high: ??120-144 mg/dL ??High: ?>145 mg/dL Ages > or = 20 years ??When triglycerides are >200 mg/dL, Non-HDL cholesterol is a secondary target of ? therapy with treatment goals that are 30 mg/dL greater than the LDL cholesterol target. ? Literature References: 1. Expert Panel on Integrated Guidelines for Cardiovascular Health and Risk Reduction in Children and Adolescents. Pediatrics 2011;128:S213 2. NCEP Expert Panel. Circulation 2004;110:227 Current Interpretive Data was last revised on 2018. Chol/HDL ratio 3 [facility] ([place]) Blood 09/13/2024 1:59 AM DEBLOCKER 09/13/2024 2:06 AM DEBLOCKER us Chris Caraballo MD LAB BLOOD ORDERABLES Final Result [facility] ([place]) 1 [facility] Department [place] [address] * (ABNORMAL) Comprehensive metabolic panel (09/13/2024 1:59 AM DEBLOCKER) Sodium 137 135 - 145 mmol/L Potassium, pl 3.1(L) 3.3 - 4.9 mmol/L [facility] ([place]) Chloride 102 97 - 110 mmol/L [facility] ([place]) CO2 31 22 - 32 mmol/L [facility] ([place]) Anion gap 4 2 - 15 mmol/L [facility] ([place]) BUN 10 6 - 25 mg/dL [facility] ([place]) Creatinine 0.60(L) 0.80 - 1.30 mg/dL [facility] ([place]) Glucose 188 70 - 199 mg/dL [facility] ([place]) Comment: Interpretive Data Fasting glucose >/= 126 mg/dl is diagnostic for diabetes. ?? Fasting is defined as no caloric intake for at least 8 hours. Fasting glucose between 100 mg/dl to 125 mg/dl is diagnostic of prediabetes. In a patient with classic symptoms of hyperglycemia or hyperglycemic crisis, a random glucose >/= 200 mg/dl is diagnostic for diabetes. In the absence of unequivocal hyperglycemia, results should be confirmed by repeat testing. The classification and Diagnosis of Diabetes Diabetes Care 2021; 46: S19-S40. Current interpretive data was last revised 2022. Calcium 8.0(L) 8.5 - 10.3 mg/dL [facility] ([place]) Bilirubin, total 0.4 0.1 - 1.2 mg/dL [facility] ([place]) Protein, pl 4.7(L) 6.5 - 8.5 g/dL [facility] ([place]) Albumin 2.8(L) 3.5 - 5.0 g/dL [facility] ([place]) Alk phos 80 40 - 130 Units/L [facility] ([place]) ALT 27 7 - 55 Units/L [facility] ([place]) AST 31 10 - 50 Units/L [facility] ([place]) Blood 09/13/2024 1:59 AM DEBLOCKER 09/13/2024 2:06 AM DEBLOCKER us Chris Caraballo MD LAB BLOOD ORDERABLES Final Result [facility] ([place]) 1 [facility] [employer] [place] [address] * POCT glucose (09/13/2024 1:51 AM DEBLOCKER) Glucose, POC 152 70 - 199 mg/dL Blood 09/13/2024 1:51 AM DEBLOCKER 09/13/2024 1:51 AM DEBLOCKER us Pavithra Hung MD LAB POCT ORDERABLES - DEVICE Fi nal Result Performing Organization Address City/[facility]/ZIP Co de Phone Number [facility] ([place] 1 [facility] [employer] [place] [address] * (ABNORMAL) POCT glucose (09/12/2024 8:45 PM DEBLOCKER) Glucose, POC 216(H) 70 - 199 mg/dL Blood 09/12/2024 8:45 PM DEBLOCKER 09/12/2024 8:45 PM DEBLOCKER us Pavithra Hung MD LAB POCT ORDERABLES - DEVICE Fi nal Result [facility] ([place]) 1 [facility] [employer] [place] [address] * POCT glucose (09/12/2024 4:23 PM DEBLOCKER) Glucose, POC 112 70 - 199 mg/dL Blood 09/12/2024 4:23 PM DEBLOCKER 09/12/2024 4:23 PM DEBLOCKER Pavithra Hung MD LAB POCT ORDERABLES - DEVICE Fi nal Result Performing Organization Address City/[facility]/ZIP Co de Phone Number [facility] ([place]) 1 [facility] [employer] [place] [address] * (ABNORMAL) POCT glucose (09/12/2024 3:35 PM DEBLOCKER) Glucose, POC 68(L) 70 - 199 mg/dL Blood 09/12/2024 3:35 PM DEBLOCKER 09/12/2024 3:35 PM DEBLOCKER Result [facility] Pavithra Hung MD LAB POCT ORDERABLES - DEVICE Fi nal Result Performing Organization Address [facility] Co de Phone Number [facility] ([place]) 1 [facility] [employer] [place] [address] * (ABNORMAL) POCT glucose (09/12/2024 3:10 PM DEBLOCKER) Glucose, POC 55(L) 70 - 199 mg/dL Blood 09/12/2024 3:10 PM DEBLOCKER 09/12/2024 3:10 PM DEBLOCKER Pavithra Hung MD LAB POCT ORDERABLES - DEVICE Fi nal Result Performing Organization Address City/[facility] Co de Phone Number [facility] ([place]) 1 [facility] [employer] [place] [address] * POCT glucose (09/12/2024 12:20 PM DEBLOCKER) Glucose, POC 100 70 - 199 mg/dL Blood 09/12/2024 12:2 0 PM DEBLOCKER 09/12/2024 12:20 PM DEBLOCKER Pavithra Hung MD LAB POCT ORDERABLES - DEVICE Fi nal Result Performing Organization Address [facility]/State/ZIP Co de Phone Number [facility] ([place]) 1 [facility] [employer] [place] [address] * POCT glucose (09/12/2024 7:56 AM DEBLOCKER) Glucose, POC 198 70 - 199 mg/dL Blood 09/12/2024 7:56 AM DEBLOCKER 09/12/2024 7:56 AM DEBLOCKER Pavithra Hung MD LAB POCT ORDERABLES - DEVICE Fi nal Result Performing Organization Address [facility] Co de Phone Number [facility] ([place]) 1 [facility] [employer] [place] [address] * (ABNORMAL) POCT glucose (09/12/2024 2:10 AM DEBLOCKER) [facility] Glucose, POC 218(H) 70 - 199 mg/dL Blood 09/12/2024 2:10 AM DEBLOCKER 09/12/2024 2:10 AM DEBLOCKER Pavithra Hung MD LAB POCT ORDERABLES - DEVICE Fi nal Result Performing Organization Address [facility] Co de Phone Number [facility] ([place]) 1 [facility] [place] [address] * eGFR (09/12/2024 2:08 AM DEBLOCKER) eGFR >90 >=60 mL/min/1. 73 m2 Comment: Interpretive Data Reference Interval Normal ?>/= 90 mL/min/1.73m2 Mildly decreased* ? 60 - 89 mL/min/1.73m2 Mildly to moderately decreased ?45 - 59 mL/min/1.73m2 Moderately to severely decreased ??30 - 44 mL/min/1.73m2 Severely decreased ?15 - 29 mL/min/1.73m2 Kidney Failure ?< 15 ??mL/min/1.73m2 *Relative to young adult level Estimated glomerular filtration rate is determined by the 2020 CKD-EPI equation recommended by the National Kidney Foundation (A Unifying Approach to GFR Estimation: Recommendations of the NKF-ASK Task Force on Reassessing the Inclusion of Race in Diagnosing Kidney Disease, JASN 2020). The CKD-EPI equation should not be used for patients with unstable renal function and has not been validated in children and those over 70. Current interpretive data was last reviewed 2021. Blood 09/12/2024 2:08 AM DEBLOCKER 09/12/2024 4:02 AM DEBLOCKER us Alexey Zhong MD LAB BLOOD ORDERABLES Final Resu lt [facility] ([place]) 1 [facility] Department [place] [address] * (ABNORMAL) Comprehensive metabolic panel (09/12/2024 2:08 AM DEBLOCKER) Sodium 138 135 - 145 mmol/L Potassium, pl 3.1(L) 3.3 - 4.9 mmol/L [facility] ([place] Chloride 100 97 - 110 mmol/L [facility] ([place]) CO2 32 22 - 32 mmol/L [facility] ([place]) Anion gap 6 2 - 15 mmol/L [facility] ([place] BUN 10 6 - 25 mg/dL [facility] ([place] Creatinine 0.64(L) 0.80 - 1.30 mg/dL [facility] ([place]) Glucose 228(H) 70 - 199 mg/dL [facility] ([place]) Comment: Interpretive Data Fasting glucose >/= 126 mg/dl is diagnostic for diabetes. ?? Fasting is defined as no caloric intake for at least 8 hours. Fasting glucose between 100 mg/dl to 125 mg/dl is diagnostic of prediabetes. In a patient with classic symptoms of hyperglycemia or hyperglycemic crisis, a random glucose >/= 200 mg/dl is diagnostic for diabetes. In the absence of unequivocal hyperglycemia, results should be confirmed by repeat testing. The classification and Diagnosis of Diabetes Diabetes Care 2021; 46: S19-S40. Current interpretive data was last revised 2022. Calcium 7.8(L) 8.5 - 10.3 mg/dL [facility] ([place]) Bilirubin, total 0.6 0.1 - 1.2 mg/dL [facility] ([place]) Protein, pl 4.9(L) 6.5 - 8.5 g/dL [facility] ([place]) Albumin 3.0(L) 3.5 - 5.0 g/dL [facility] ([place]) Alk phos 91 40 - 130 Units/L [facility] ([place]) ALT 21 7 - 55 Units/L [facility] ([place]) AST 31 10 - 50 Units/L [facility] ([place]) Blood 09/12/2024 2:08 AM DEBLOCKER 09/12/2024 4:02 AM DEBLOCKER us Chris Caraballo MD LAB BLOOD ORDERABLES Final Result [facility] ([place]) 1 [facility] [place] [address] * (ABNORMAL) POCT glucose (09/11/2024 8:41 PM DEBLOCKER) Glucose, POC 294(H) 70 - 199 mg/dL Blood 09/11/2024 8:41 PM DEBLOCKER 09/11/2024 8:41 PM DEBLOCKER us Pavithra Hung MD LAB POCT ORDERABLES - DEVICE Fi nal Result [facility] ([place]) 1 [facility] [place] [address] * POCT glucose (09/11/2024 4:49 PM DEBLOCKER) Glucose, POC 92 70 - 199 mg/dL Blood 09/11/2024 4:49 PM DEBLOCKER 09/11/2024 4:49 PM DEBLOCKER us Pavithra Hung MD LAB POCT ORDERABLES - DEVICE Fi nal Result Performing Organization Address [facility] Co de Phone Number [facility] ([place]) 1 [facility] [employer] [place] [address] * POCT glucose (09/11/2024 11:35 AM DEBLOCKER) Glucose, POC 166 70 - 199 mg/dL Blood 09/11/2024 11:3 5 AM DEBLOCKER 09/11/2024 11:35 AM DEBLOCKER Pavithra Hung MD LAB POCT ORDERABLES - DEVICE Fi nal Result Performing Organization Address [facility] de Phone Number [facility] ([place]) 1 [facility] [employer] [place] [address] * (ABNORMAL) Lipase (09/11/2024 9:35 AM DEBLOCKER) Lipase 127(H) 10 - 99 Units/L Blood 09/11/2024 9:35 AM DEBLOCKER 09/11/2024 9:45 AM DEBLOCKER us Alexey Zhong MD LAB BLOOD ORDERABLES Final Resu lt Performing Organization Address [facility] de Phone Number [facility] ([place]) 1 [facility] [employer] [place] [address] * (ABNORMAL) POCT glucose (09/11/2024 7:44 AM DEBLOCKER) Glucose, POC 244(H) 70 - 199 mg/dL Blood 09/11/2024 7:44 AM DEBLOCKER 09/11/2024 7:44 AM DEBLOCKER us Alexey Zhong MD LAB POCT ORDERABLES - DEVICE Fi nal Result [facility] ([place]) 1 [facility] [place] [address] * (ABNORMAL) POCT glucose (09/11/2024 6:45 AM DEBLOCKER) Glucose, POC 226(H) 70 - 199 mg/dL Blood 09/11/2024 6:45 AM DEBLOCKER 09/11/2024 6:45 AM DEBLOCKER us Alexey Zhong MD LAB POCT ORDERABLES - DEVICE Fi nal Result Performing Organization Address City/[facility] Co de Phone Number [facility] ([place]) [address] [place] [address] * (ABNORMAL) POCT glucose (09/11/2024 5:55 AM DEBLOCKER) Glucose, POC 229(H) 70 - 199 mg/dL Blood 09/11/2024 5:55 AM DEBLOCKER 09/11/2024 5:55 AM DEBLOCKER us Alexey Zhong MD LAB POCT ORDERABLES - DEVICE Fi nal Result Performing Organization Address [facility] Co de Phone Number [facility] ([place]) 1 [facility] [employer] [place] [address] * POCT glucose (09/11/2024 4:47 AM DEBLOCKER) Glucose, POC 196 70 - 199 mg/dL Blood 09/11/2024 4:47 AM DEBLOCKER 09/11/2024 4:47 AM DEBLOCKER us Alexey Zhong MD LAB POCT ORDERABLES - DEVICE Fi nal Result Performing Organization Address City/[facility]/ZIP Co de Phone Number [facility] ([place]) 1 [facility] [employer] [place] [address] * eGFR (09/11/2024 3:48 AM DEBLOCKER) Pathologist [facility] eGFR >90 >=60 mL/min/1. 73 m2 Comment: Interpretive Data Reference Interval Normal ?>/= 90 mL/min/1.73m2 Mildly decreased* ? 60 - 89 mL/min/1.73m2 Mildly to moderately decreased ?45 - 59 mL/min/1.73m2 Moderately to severely decreased ??30 - 44 mL/min/1.73m2 Severely decreased ?15 - 29 mL/min/1.73m2 Kidney Failure ?< 15 ??mL/min/1.73m2 *Relative to young adult level Estimated glomerular filtration rate is determined by the 2020 CKD-EPI equation recommended by the National Kidney Foundation (A Unifying Approach to GFR Estimation: Recommendations of the NKF-ASK Task Force on Reassessing the Inclusion of Race in Diagnosing Kidney Disease, JASN 2020). The CKD-EPI equation should not be used for patients with unstable renal function and has not been validated in children and those over 70. Current interpretive data was last reviewed 2021. Blood 09/11/2024 3:48 AM DEBLOCKER 09/11/2024 3:56 AM DEBLOCKER us Alexey Zhong MD LAB BLOOD ORDERABLES Final Resu lt [facility] ([place]) 1 [facility] Department of Laboratories [place], [place] [id number] * (ABNORMAL) Differential, auto (09/11/2024 3:48 AM DEBLOCKER) Neutrophil abs 9.3(H) 1.5 - 6.5 K/cumm Imm gran abs 0.1 0.0 - 0.1 K/cumm [facility] ([place]) Lymphocyte abs 1.5 0.8 - 3.3 K/cumm [facility] ([place]) Monocyte abs 1.0(H) 0.2 - 0.8 K/cumm [facility] ([place]) Eosinophil abs 0.1 0.0 - 0.5 K/cumm [facility] ([place]) Basophil abs 0.0 0.0 - 0.1 K/cumm [facility] ([place]) Neutrophil pct 77.7 % [facility] ([place]) Comment: Interpretive Data Percent cell count reference ranges are not reported, since discordance with absolute values may lead to misinterpretation of CBC data. Current Interpretive Data was last revised on 2018. Imm gran pct 0.4 % [facility] ([place]) Comment: Interpretive Data Percent cell count reference ranges are not reported, since discordance with absolute values may lead to misinterpretation of CBC data. Current Interpretive Data was last revised on 2018. Lymphocyte pct 12.2 % [facility] ([place]) Comment: Interpretive Data Percent cell count reference ranges are not reported, since discordance with absolute values may lead to misinterpretation of CBC data. Current Interpretive Data was last revised on 2018. Monocyte pct 8.2 % [facility] ([place]) Comment: Interpretive Data Percent cell count reference ranges are not reported, since discordance with absolute values may lead to misinterpretation of CBC data. Current Interpretive Data was last revised on 2018. Eosinophil pct 1.2 % [facility] ([place]) Comment: Interpretive Data Percent cell count reference ranges are not reported, since discordance with absolute values may lead to misinterpretation of CBC data. Current Interpretive Data was last revised on 2018. Basophil pct 0.3 % [facility] ([place]) Comment: Interpretive Data Percent cell count reference ranges are not reported, since discordance with absolute values may lead to misinterpretation of CBC data. Current Interpretive Data was last revised on 2018. Blood 09/11/2024 3:48 AM DEBLOCKER 09/11/2024 3:56 AM DEBLOCKER us Alexey Zhong MD LAB BLOOD ORDERABLES Final Resu lt [facility] ([place]) 1 [facility] Department [place] [address] * (ABNORMAL) CBC with auto differential (09/11/2024 3:48 AM DEBLOCKER) Pathologist [facility] WBC 11.9(H) 3.8 - 9.9 K/cumm Hgb 12.1(L) 13.0 - 17.5 g/dL [facility] ([place]) Hct 35.1(L) 38.9 - 50.3 % [facility] ([place]) Plt 194 150 - 400 K/cumm [facility] ([place]) Comment:Although platelets a re clumped on slide, platelet estimate appears adequate to increased in number. MPV 9.6 9.1 - 12.3 fL [facility] ([place]) RBC 4.15(L) 4.30 - 5.80 M/cumm [facility] ([place]) MCV 84.6 81.3 - 96.4 fL [facility] ([place]) MCH 29.2 27.1 - 33.3 pg [facility] ([place]) MCHC 34.5 32.3 - 35.7 g/dL [facility] ([place]) RDW CV 13.2 11.1 - 14.9 % [facility] ([place]) RDW SD 40.7 35.7 - 48.1 fL [facility] ([place]) NRBC abs 0.00 0.00 - 0.01 K/cumm [facility] ([place]) Blood 09/11/2024 3:48 AM DEBLOCKER 09/11/2024 3:56 AM DEBLOCKER us Alexey Zhong MD LAB BLOOD ORDERABLES Final Resu lt [facility] ([place]) 1 [facility] Department [place] [address] * (ABNORMAL) Comprehensive metabolic panel (09/11/2024 3:48 AM DEBLOCKER) Pathologist [facility] Sodium 137 135 - 145 mmol/L Potassium, pl 3.2(L) 3.3 - 4.9 mmol/L [facility] ([place]) Chloride 102 97 - 110 mmol/L [facility] ([place]) CO2 26 22 - 32 mmol/L [facility] ([place]) Anion gap 9 2 - 15 mmol/L [facility] ([place]) BUN 12 6 - 25 mg/dL [facility] ([place]) Creatinine 0.64(L) 0.80 - 1.30 mg/dL [facility] ([place]) Glucose 165 70 - 199 mg/dL [facility] ([place]) Comment: Interpretive Data Fasting glucose >/= 126 mg/dl is diagnostic for diabetes. ?? Fasting is defined as no caloric intake for at least 8 hours. Fasting glucose between 100 mg/dl to 125 mg/dl is diagnostic of prediabetes. In a patient with classic symptoms of hyperglycemia or hyperglycemic crisis, a random glucose >/= 200 mg/dl is diagnostic for diabetes. In the absence of unequivocal hyperglycemia, results should be confirmed by repeat testing. The classification and Diagnosis of Diabetes Diabetes Care 2021; 46: S19-S40. Current interpretive data was last revised 2022. Calcium 7.9(L) 8.5 - 10.3 mg/dL [facility] ([place]) Bilirubin, total 0.4 0.1 - 1.2 mg/dL [facility] ([place]) Protein, pl 4.9(L) 6.5 - 8.5 g/dL [facility] ([place]) Albumin 3.2(L) 3.5 - 5.0 g/dL [facility] ([place]) Alk phos 79 40 - 130 Units/L [facility] ([place]) ALT 15 7 - 55 Units/L [facility] ([place]) AST 19 10 - 50 Units/L [facility] ([place]) Blood 09/11/2024 3:48 AM DEBLOCKER 09/11/2024 3:56 AM DEBLOCKER us Chris Caraballo MD LAB BLOOD ORDERABLES Final Result [facility] ([place]) 1 [facility] Department [place] [address] * POCT glucose (09/11/2024 3:42 AM DEBLOCKER) Glucose, POC 147 70 - 199 mg/dL Blood 09/11/2024 3:42 AM DEBLOCKER 09/11/2024 3:42 AM DEBLOCKER us Alexey Zhong MD LAB POCT ORDERABLES - DEVICE Fi nal Result Performing Organization Address [facility] Co de Phone Number [facility] ([place]) 1 [facility] [employer] [place] [address] * POCT glucose (09/11/2024 2:33 AM DEBLOCKER) Glucose, POC 131 70 - 199 mg/dL Blood 09/11/2024 2:33 AM DEBLOCKER 09/11/2024 2:33 AM DEBLOCKER us Alexey Zhong MD LAB POCT ORDERABLES - DEVICE Fi nal Result Performing Organization Address [facility] Co de Phone Number [facility] ([place]) 1 [facility] [employer] [place] [address] * POCT glucose (09/11/2024 1:20 AM DEBLOCKER) Glucose, POC 117 70 - 199 mg/dL Blood 09/11/2024 1:20 AM DEBLOCKER 09/11/2024 1:20 AM DEBLOCKER us Alexey Zhong MD LAB POCT ORDERABLES - DEVICE Fi nal Result Performing Organization Address [facility] de Phone Number [facility] ([place]) 1 [facility] [employer] [place] [address] * eGFR (09/11/2024 12:37 AM DEBLOCKER) eGFR >90 >=60 mL/min/1. 73 m2 Comment: Interpretive Data Reference Interval Normal ?>/= 90 mL/min/1.73m2 Mildly decreased* ? 60 - 89 mL/min/1.73m2 Mildly to moderately decreased ?45 - 59 mL/min/1.73m2 Moderately to severely decreased ??30 - 44 mL/min/1.73m2 Severely decreased ?15 - 29 mL/min/1.73m2 Kidney Failure ?< 15 ??mL/min/1.73m2 *Relative to young adult level Estimated glomerular filtration rate is determined by the 2020 CKD-EPI equation recommended by the National Kidney Foundation (A Unifying Approach to GFR Estimation: Recommendations of the NKF-ASK Task Force on Reassessing the Inclusion of Race in Diagnosing Kidney Disease, JASN 2020). The CKD-EPI equation should not be used for patients with unstable renal function and has not been validated in children and those over 70. Current interpretive data was last reviewed 2021. Blood 09/11/2024 12:3 7 AM DEBLOCKER 09/11/2024 12:42 AM DEBLOCKER us Alexey Zhong MD LAB BLOOD ORDERABLES Final Resu lt [facility] ([place]) 1 [facility] Department of Laboratories [place], [place] [id number] * (ABNORMAL) Basic metabolic panel (09/11/2024 12:37 AM DEBLOCKER) Sodium 138 135 - 145 mmol/L Potassium, pl 3.2(L) 3.3 - 4.9 mmol/L [facility] ([place] Chloride 102 97 - 110 mmol/L [facility] ([place]) CO2 28 22 - 32 mmol/L [facility] ([place]) Anion gap 8 2 - 15 mmol/L [facility] ([place]) BUN 14 6 - 25 mg/dL [facility] ([place]) Creatinine 0.67(L) 0.80 - 1.30 mg/dL [facility] ([place]) Glucose 128 70 - 199 mg/dL [facility] ([place]) Comment: Interpretive Data Fasting glucose >/= 126 mg/dl is diagnostic for diabetes. ?? Fasting is defined as no caloric intake for at least 8 hours. Fasting glucose between 100 mg/dl to 125 mg/dl is diagnostic of prediabetes. In a patient with classic symptoms of hyperglycemia or hyperglycemic crisis, a random glucose >/= 200 mg/dl is diagnostic for diabetes. In the absence of unequivocal hyperglycemia, results should be confirmed by repeat testing. The classification and Diagnosis of Diabetes Diabetes Care 2021; 46: S19-S40. Current interpretive data was last revised 2022. Calcium 8.7 8.5 - 10.3 mg/dL [facility] ([place]) Blood 09/11/2024 12:3 7 AM DEBLOCKER 09/11/2024 12:42 AM DEBLOCKER us Alexey Zhong MD LAB BLOOD ORDERABLES Final Resu lt Performing Organization Address City/[facility]/ZIP Co de Phone Number [facility] ([place]) 1 [facility] [employer] [place] [address] * POCT glucose (09/11/2024 12:17 AM DEBLOCKER) Glucose, POC 105 70 - 199 mg/dL Blood 09/11/2024 12:1 7 AM DEBLOCKER 09/11/2024 12:17 AM DEBLOCKER us Alexey Zhong MD LAB POCT ORDERABLES - DEVICE Fi nal Result Performing Organization Address [facility] Co de Phone Number [facility] ([place]) 1 [facility] [employer] [place] [address] * POCT glucose (09/10/2024 11:10 PM DEBLOCKER) Glucose, POC 137 70 - 199 mg/dL Blood 09/10/2024 11:1 0 PM DEBLOCKER 09/10/2024 11:10 PM DEBLOCKER us Alexey Zhong MD LAB POCT ORDERABLES - DEVICE Fi nal Result Performing Organization Address [facility] Co de Phone Number [facility] ([place]) 1 [facility] [employer] [place] [address] * POCT glucose (09/10/2024 10:05 PM DEBLOCKER) Glucose, POC 179 70 - 199 mg/dL Blood 09/10/2024 10:0 5 PM DEBLOCKER 09/10/2024 10:05 PM DEBLOCKER Alexey Zhong MD LAB POCT ORDERABLES - DEVICE Fi nal Result Performing Organization Address City/[facility]/ZIP Co de Phone Number [facility] ([place]) 1 [facility] [employer] [place] [address] * POCT glucose (09/10/2024 9:02 PM DEBLOCKER) Glucose, POC 171 70 - 199 mg/dL Blood 09/10/2024 9:02 PM DEBLOCKER 09/10/2024 9:02 PM DEBLOCKER Alexey Zhong MD LAB POCT ORDERABLES - DEVICE Fi nal Result Performing Organization Address City/[facility]/ZIP Co de Phone Number [facility] ([place]) 1 [facility] [employer] [place] [address] * POCT glucose (09/10/2024 8:00 PM DEBLOCKER) Glucose, POC 152 70 - 199 mg/dL Blood 09/10/2024 8:00 PM DEBLOCKER 09/10/2024 8:00 PM DEBLOCKER Alexey Zhong MD LAB POCT ORDERABLES - DEVICE Fi nal Result Performing Organization Address City/[facility]/ZIP Co de Phone Number [facility] ([place]) 1 [facility] [employer] [place] [address] * POCT glucose (09/10/2024 6:45 PM DEBLOCKER) Glucose, POC 157 70 - 199 mg/dL Blood 09/10/2024 6:45 PM DEBLOCKER 09/10/2024 6:45 PM DEBLOCKER us Alexey Zhong MD LAB POCT ORDERABLES - DEVICE Fi nal Result Performing Organization Address City/[facility]/ZIP Co de Phone Number [facility] ([place]) 1 [facility] [place] [address] * eGFR (09/10/2024 6:43 PM DEBLOCKER) eGFR >90 >=60 mL/min/1. 73 m2 Comment: Interpretive Data Reference Interval Normal ?>/= 90 mL/min/1.73m2 Mildly decreased* ? 60 - 89 mL/min/1.73m2 Mildly to moderately decreased ?45 - 59 mL/min/1.73m2 Moderately to severely decreased ??30 - 44 mL/min/1.73m2 Severely decreased ?15 - 29 mL/min/1.73m2 Kidney Failure ?< 15 ??mL/min/1.73m2 *Relative to young adult level Estimated glomerular filtration rate is determined by the 2020 CKD-EPI equation recommended by the National Kidney Foundation (A Unifying Approach to GFR Estimation: Recommendations of the NKF-ASK Task Force on Reassessing the Inclusion of Race in Diagnosing Kidney Disease, JASN 202). The CKD-EPI equation should not be used for patients with unstable renal function and has not been validated in children and those over 70. Current interpretive data was last reviewed 2021. Blood 09/10/2024 6:43 PM DEBLOCKER 09/10/2024 7:20 PM DEBLOCKER us Alexey Zhong MD LAB BLOOD ORDERABLES Final Resu lt [facility] ([place]) 1 [facility] Department of [employer] [place] [address] * (ABNORMAL) Basic metabolic panel (09/10/2024 6:43 PM DEBLOCKER) Sodium 137 135 - 145 mmol/L Potassium, pl 3.1(L) 3.3 - 4.9 mmol/L [facility] ([place]) Chloride 101 97 - 110 mmol/L [facility] ([place]) CO2 25 22 - 32 mmol/L [facility] ([place]) Anion gap 11 2 - 15 mmol/L [facility] ([place]) BUN 17 6 - 25 mg/dL [facility] ([place]) Creatinine 0.73(L) 0.80 - 1.30 mg/dL [facility] ([place]) Glucose 179 70 - 199 mg/dL [facility] ([place]) Comment: Interpretive Data Fasting glucose >/= 126 mg/dl is diagnostic for diabetes. ?? Fasting is defined as no caloric intake for at least 8 hours. Fasting glucose between 100 mg/dl to 125 mg/dl is diagnostic of prediabetes. In a patient with classic symptoms of hyperglycemia or hyperglycemic crisis, a random glucose >/= 200 mg/dl is diagnostic for diabetes. In the absence of unequivocal hyperglycemia, results should be confirmed by repeat testing. The classification and Diagnosis of Diabetes Diabetes Care 2021; 46: S19-S40. Current interpretive data was last revised 2022. Calcium 8.5 8.5 - 10.3 mg/dL [facility] ([place]) Blood 09/10/2024 6:43 PM DEBLOCKER 09/10/2024 7:20 PM DEBLOCKER Alexey Zhong MD LAB BLOOD ORDERABLES Final Resu lt [facility] ([place]) 1 [facility] Department [place] [address] * POCT glucose (09/10/2024 5:44 PM DEBLOCKER) Glucose, POC 168 70 - 199 mg/dL Blood 09/10/2024 5:44 PM DEBLOCKER 09/10/2024 5:44 PM DEBLOCKER Alexey Zhong MD LAB POCT ORDERABLES - DEVICE Fi nal Result [facility] ([place]) 1 [place] [address] * (ABNORMAL) POCT glucose (09/10/2024 4:43 PM DEBLOCKER) Glucose, POC 212(H) 70 - 199 mg/dL Blood 09/10/2024 4:43 PM DEBLOCKER 09/10/2024 4:43 PM DEBLOCKER us Alexey Zhong MD LAB POCT ORDERABLES - DEVICE Fi nal Result Performing Organization Address City/[facility]/ZIP Co de Phone Number [facility] ([place]) 1 [facility] [employer] [place] [address] * (ABNORMAL) POCT glucose (09/10/2024 3:45 PM DEBLOCKER) Glucose, POC 257(H) 70 - 199 mg/dL Blood 09/10/2024 3:45 PM DEBLOCKER 09/10/2024 3:45 PM DEBLOCKER us Alexey Zhong MD LAB POCT ORDERABLES - DEVICE Fi nal Result Performing Organization Address [facility]/ZIP Co de Phone Number [facility] ([place]) 1 [facility] [employer] [place] [address] * (ABNORMAL) POCT glucose (09/10/2024 2:47 PM DEBLOCKER) Glucose, POC 247(H) 70 - 199 mg/dL Blood 09/10/2024 2:47 PM DEBLOCKER 09/10/2024 2:47 PM DEBLOCKER us Alexey Zhong MD LAB POCT ORDERABLES - DEVICE Fi nal Result [facility] ([place]) 1 [facility] [employer] [place] [address] * (ABNORMAL) POCT glucose (09/10/2024 1:48 PM DEBLOCKER) Glucose, POC 279(H) 70 - 199 mg/dL Blood 09/10/2024 1:48 PM DEBLOCKER 09/10/2024 1:48 PM DEBLOCKER us Alexey Zhong MD LAB POCT ORDERABLES - DEVICE Fi nal Result Performing Organization Address [facility] de Phone Number [facility] ([place]) 1 [facility] [employer] [place] [address] * (ABNORMAL) POCT glucose (09/10/2024 1:08 PM DEBLOCKER) Pathologist [facility] Glucose, POC 283(H) 70 - 199 mg/dL Blood 09/10/2024 1:08 PM DEBLOCKER 09/10/2024 1:08 PM DEBLOCKER Alexey Zhong MD LAB POCT ORDERABLES - DEVICE Fi nal Result Performing Organization Address [facility] de Phone Number [facility] ([place]) 1 [facility] [employer] [place] [address] * eGFR (09/10/2024 12:36 PM DEBLOCKER) [facility] eGFR >90 >=60 mL/min/1. 73 m2 Comment: Interpretive Data Reference Interval Normal ?>/= 90 mL/min/1.73m2 Mildly decreased* ? 60 - 89 mL/min/1.73m2 Mildly to moderately decreased ?45 - 59 mL/min/1.73m2 Moderately to severely decreased ??30 - 44 mL/min/1.73m2 Severely decreased ?15 - 29 mL/min/1.73m2 Kidney Failure ?< 15 ??mL/min/1.73m2 *Relative to young adult level Estimated glomerular filtration rate is determined by the 2020 CKD-EPI equation recommended by the National Kidney Foundation (A Unifying Approach to GFR Estimation: Recommendations of the NKF-ASK Task Force on Reassessing the Inclusion of Race in Diagnosing Kidney Disease, JASN 2020). The CKD-EPI equation should not be used for patients with unstable renal function and has not been validated in children and those over 70. Current interpretive data was last reviewed 2021. Blood 09/10/2024 12:3 6 PM DEBLOCKER 09/10/2024 12:40 PM DEBLOCKER us Alexey Zhong MD LAB BLOOD ORDERABLES Final Resu lt [facility] ([place]) 1 [facility] Department [place] [address] * (ABNORMAL) Basic metabolic panel (09/10/2024 12:36 PM DEBLOCKER) Sodium 138 135 - 145 mmol/L Potassium, pl 3.7 3.3 - 4.9 mmol/L [facility] ([place]) Chloride 100 97 - 110 mmol/L [facility] ([place]) CO2 18(L) 22 - 32 mmol/L [facility] ([place]) Anion gap 20(H) 2 - 15 mmol/L [facility] ([place]) BUN 25 6 - 25 mg/dL [facility] ([place]) Creatinine 0.92 0.80 - 1.30 mg/dL [facility] ([place]) Glucose 265(H) 70 - 199 mg/dL [facility] ([place]) Comment: Interpretive Data Fasting glucose >/= 126 mg/dl is diagnostic for diabetes. ?? Fasting is defined as no caloric intake for at least 8 hours. Fasting glucose between 100 mg/dl to 125 mg/dl is diagnostic of prediabetes. In a patient with classic symptoms of hyperglycemia or hyperglycemic crisis, a random glucose >/= 200 mg/dl is diagnostic for diabetes. In the absence of unequivocal hyperglycemia, results should be confirmed by repeat testing. The classification and Diagnosis of Diabetes Diabetes Care 202; 46: S19-S40. Current interpretive data was last revised 2022. Calcium 8.5 8.5 - 10.3 mg/dL [facility] ([place]) Blood 09/10/2024 12:3 6 PM DEBLOCKER 09/10/2024 12:40 PM DEBLOCKER us Alexey Zhong MD LAB BLOOD ORDERABLES Final Resu lt Performing Organization Address City/[facility]/ZIP Co de Phone Number [facility]RI[facility] ([place]) 1 [facility] [employer] [place] [address] * (ABNORMAL) POCT glucose (09/10/2024 11:41 AM DEBLOCKER) Glucose, POC 225(H) 70 - 199 mg/dL Blood 09/10/2024 11:4 1 AM DEBLOCKER 09/10/2024 11:41 AM DEBLOCKER Alexey Zhong MD LAB POCT ORDERABLES - DEVICE Fi nal Result Performing Organization Address City/[facility] Co de Phone Number [facility] ([place]) 1 [facility] [place] [address] * CT Abdomen Pelvis WO Contrast (09/10/2024 10:10 AM DEBLOCKER) Anatomical Region Laterality Modality Body N/A Computed Tomogra phy 09/10/2024 1:03 PM DEBLOCKER Narrative 09/10/2024 1:42 PM DEBLOCKER EXAM DESCRIPTION: ?? CT ABDOMEN PELVIS WO CONTRAST REASON FOR STUDY: Abdominal cramping and nausea for the last 24 hours. Pt arrived yesterday with diabetic ketoacidosis. ? TECHNIQUE: CT scan of the abdomen and pelvis performed without intravenous and without ??oral contrast using helical scanning technique. Reconstructed coronal and sagittal MPR images reviewed. All images stored on PACS. Automated exposure control was used as a dose optimization technique for this examination. COMPARISON: ?? None available FINDINGS: The sensitivity for detection of visceral lesions is diminished without the use of intravenous contrast. LOWER CHEST: ?? Minimal scattered opacities in the lower lobes favoring subsegmental atelectasis. ??No consolidation or pleural effusion. LIVER: ?? Normal size. ??No identified cystic or solid masses. GALLBLADDER: ?? No calcified gallstones, definite wall thickening, or pericholecystic fluid. BILE DUCTS: ?? No intrahepatic or extrahepatic ductal dilatation. SPLEEN: ?? Normal size. ??No focal lesions. PANCREAS: ?? Mildly edematous appearance of the pancreatic head and body with surrounding inflammatory stranding as evidence for pancreatitis. No discrete peripancreatic fluid collection identified. ??No pancreatic duct dilation. ADRENALS: ?? Normal. KIDNEYS/URINARY TRACT: ?? Several nonobstructing left renal calculi measuring up to 1 cm. ??No hydronephrosis or hydroureter. ??Enlarged prostate gland indents the posterior bladder wall. Urinary bladder is otherwise unremarkable. GI: ?? There is wall thickening of the 2nd segment of the duodenum that is favored to be reactive versus infectious duodenitis. Small bowel is otherwise normal course and caliber. High dense material in the stomach, distal small bowel, and proximal colon, favor medication related. Normal appendix. Scattered colonic diverticula without evidence of acute diverticulitis. ??Mild wall thickening of the distal sigmoid colon and rectum that is suspected to represent fecal material but is suboptimally evaluated without contrast. PERITONEUM: ?? No ascites or free air. ?? RETROPERITONEUM: ?? No mass or adenopathy. REPRODUCTIVE: ?? Prostatomegaly. ??Recommend correlation with PSA. VASCULATURE: ?? Atherosclerotic calcification of the aorta without aneurysm. MUSCULOSKELETAL: ?? No acute fracture or aggressive osseous lesion. ?? Thoracolumbar spondylosis. OTHER: ?? No other abnormality. IMPRESSION: Findings concerning for pancreatitis. Recommend clinical and laboratory correlation. Duodenal wall thickening that is favored to be reactive versus infectious duodenitis. Nonobstructing left renal calculi measuring up to 1 cm. Prostatomegaly. Recommend correlation with PSA. These significant findings were reported ??by telephone ??to ??DAVID Glynn ?? on ??09/10/2024 ??at ??1:35 p.m. These significant findings were reported ??by telephone ??to ??Jason Solitario ??on ??09/10/2024 ??at ??1:35 pm . ?? THIS IS AN ELECTRONICALLY VERIFIED FINAL REPORT 09/10/2024 1:42 PM - Electronically signed by ??John Benito M.D. AG: AG D: ??09/10/2024 1:42 PM T: ??09/10/2024 1:42 PM Report ID: [id number] Reading Location: ??[id number] Procedure Note John Benito MD - 09/10/2024 EXAM DESCRIPTION: CT ABDOMEN PELVIS WO CONTRAST REASON FOR STUDY: Abdominal cramping and nausea for the last 24 hours. Pt arrived yesterday with diabetic ketoacidosis. TECHNIQUE: CT scan of the abdomen and pelvis performed without intravenousand without oral contrast using helical scanning technique. Reconstructed coronal and sagittal MPR images reviewed. All images stored on PACS.Automated exposure control was used as a dose optimization technique for this examination. COMPARISON: None available FINDINGS: The sensitivity for detection of visceral lesions is diminished withoutthe use of intravenous contrast. LOWER CHEST: Minimal scattered opacities in the lower lobes favoring subsegmental atelectasis. No consolidation or pleural effusion. LIVER: Normal size. No identified cystic or solid masses. GALLBLADDER: No calcified gallstones, definite wall thickening, or pericholecystic fluid. BILE DUCTS: No intrahepatic or extrahepatic ductal dilatation. SPLEEN: Normal size. No focal lesions. PANCREAS: Mildly edematous appearance of the pancreatic head and bodywith surrounding inflammatory stranding as evidence for pancreatitis. Nodiscrete peripancreatic fluid collection identified. No pancreatic duct dilation. ADRENALS: Normal. KIDNEYS/URINARY TRACT: Several nonobstructing left renal calculimeasuring up to 1 cm. No hydronephrosis or hydroureter. Enlarged prostate gland indents the posterior bladder wall. Urinary bladder is otherwiseunremarkable. GI: There is wall thickening of the 2nd segment of the duodenum that is favored to be reactive versus infectious duodenitis. Small bowel isotherwise normal course and caliber. High dense material in the stomach, distalsmall bowel, and proximal colon, favor medication related. Normal appendix. Scattered colonic diverticula without evidence of acute diverticulitis.Mild wall thickening of the distal sigmoid colon and rectum that is suspectedto represent fecal material but is suboptimally evaluated without contrast. PERITONEUM: No ascites or free air. RETROPERITONEUM: No mass or adenopathy. REPRODUCTIVE: Prostatomegaly. Recommend correlation with PSA. VASCULATURE: Atherosclerotic calcification of the aorta withoutaneurysm. MUSCULOSKELETAL: No acute fracture or aggressive osseous lesion. Thoracolumbar spondylosis. OTHER: No other abnormality. IMPRESSION: Findings concerning for pancreatitis. Recommend clinical and laboratory correlation. Duodenal wall thickening that is favored to be reactive versus infectious duodenitis. Nonobstructing left renal calculi measuring up to 1 cm. Prostatomegaly. Recommend correlation with PSA. These significant findings were reported by telephone to DAVID Nuñez on 09/10/2024 at 1:35 p.m. These significant findings were reported by telephone to Sabra Solitario on 09/10/2024 at 1:35 pm . THIS IS AN ELECTRONICALLY VERIFIED FINAL REPORT 09/10/2024 1:42 PM - Electronically signed by John Benito M.D. AG: AG Report ID: [id number] Reading Location: [place] [address] Jason Solitario MD IMG CT PROCEDURES F inal Result * (ABNORMAL) POCT glucose (09/10/2024 9:49 AM DEBLOCKER) [facility] Glucose, POC 215(H) 70 - 199 mg/dL Blood 09/10/2024 9:49 AM DEBLOCKER 09/10/2024 9:49 AM DEBLOCKER Alexey Zhong MD LAB POCT ORDERABLES - DEVICE Fi nal Result [facility] [place] [address] [facility] Department [place] [address] * (ABNORMAL) MRSA Only (Staphylococcus aureus) PCR Nasal (09/10/2024 9:06 AM DEBLOCKER) [facility] PCR Scrn, Methicillin resistant Staphylococcus aureus (MRSA) Detected( A) Not Detected Comment: Interpretive Data Testing performed using Nucleic Acid Amplification with the M[employer]ie Xpert MRSA NxG Assay. This assay detects target DNA from mecA, mecC and the SCCmec insertion site of Staphylococcus aureus using Real-Time PCR and has been cleared by the FDA. Performance characteristics have been verified by the [facility]. Current Interpretive Data was last revised on 2023 Nasal 09/10/2024 9:06 AM DEBLOCKER 09/10/2024 9:20 AM DEBLOCKER Jason Solitario MD LAB MICROBIOLOGY - GENERAL ORDERABLES Final Result [facility]RI[facility] ([place]) 1 [facility] [employer] [place] [address] * (ABNORMAL) POCT glucose (09/10/2024 8:47 AM DEBLOCKER) Glucose, POC 219(H) 70 - 199 mg/dL Blood 09/10/2024 8:47 AM DEBLOCKER 09/10/2024 8:47 AM DEBLOCKER Alexey Zhong MD LAB POCT ORDERABLES - DEVICE Fi nal Result Performing Organization Address [facility] [place]/[facility] Co de Phone Number [facility] ([place]) [address] [place] [address] * Lactate (09/10/2024 8:07 AM DEBLOCKER) Lactate 1.6 0.7 - 2.0 mmol/L Blood 09/10/2024 8:07 AM DEBLOCKER 09/10/2024 8:12 AM DEBLOCKER Jason Solitario MD LAB BLOOD ORDERABLE S Final Result Performing Organization Address City/[facility]/ZIP Co de Phone Number [facility] [place] [place] [address] * (ABNORMAL) Lipase (09/10/2024 8:07 AM DEBLOCKER) Lipase 816(H) 10 - 99 Units/L Blood 09/10/2024 8:07 AM DEBLOCKER 09/10/2024 8:12 AM DEBLOCKER Alexey Zhong MD LAB BLOOD ORDERABLES Final Resu lt Performing Organization Address [facility] [place]/[facility] Co de Phone Number [facility]RIOS ([place]) 1 [facility] [employer] [place] [address] * (ABNORMAL) Cortisol (09/10/2024 8:07 AM DEBLOCKER) Cortisol 23.7(H) 4.8 - 19.5 mcg/dl Comment: Interpretive Data Normal Range: ??4.8 - 19.5 mcg/dL; ??Evening: ??Half of morning value. ?? This analyte undergoes marked diurnal variation. ??Ranges indicated apply to morning specimens. ?? Current interpretive data was last revised 2018. Testing performed by: [facility], [address] [place] [address]., [id number] Blood 09/10/2024 8:07 AM DEBLOCKER 09/10/2024 1:22 PM DEBLOCKER us Alexey Zhong MD LAB BLOOD ORDERABLES Final Resu lt Performing Organization Address [facility] Co de Phone Number [facility] ([place] [address] [place] [address] * (ABNORMAL) Amylase (09/10/2024 8:07 AM DEBLOCKER) Amylase 899(H) 30 - 99 Units/L Blood 09/10/2024 8:07 AM DEBLOCKER 09/10/2024 8:12 AM DEBLOCKER Alexey Zhong MD LAB BLOOD ORDERABLES Final Resu lt Performing Organization Address City/[facility]/ZIP Co de Phone Number [facility] [place] 1 [facility] [employer] [place] [address] * (ABNORMAL) POCT glucose (09/10/2024 7:46 AM DEBLOCKER) Glucose, POC 263(H) 70 - 199 mg/dL Blood 09/10/2024 7:46 AM DEBLOCKER 09/10/2024 7:46 AM DEBLOCKER us Alexey Zhong MD LAB POCT ORDERABLES - DEVICE Fi nal Result Performing Organization Address [facility] [place]/[facility] Co de Phone Number [facility] [place] 1 [facility] [employer] [place] [address] * (ABNORMAL) POCT glucose (09/10/2024 6:41 AM DEBLOCKER) Glucose, POC 256(H) 70 - 199 mg/dL Blood 09/10/2024 6:41 AM DEBLOCKER 09/10/2024 6:41 AM DEBLOCKER us Alexey Zhong MD LAB POCT ORDERABLES - DEVICE Fi nal Result Performing Organization Address [facility] [place]/[facility] Co de Phone Number [facility] ([place] 1 [facility] [employer] [place] [address] * (ABNORMAL) POCT glucose (09/10/2024 5:39 AM DEBLOCKER) Glucose, POC 258(H) 70 - 199 mg/dL Blood 09/10/2024 5:39 AM DEBLOCKER 09/10/2024 5:39 AM DEBLOCKER us Alexey Zhong MD LAB POCT ORDERABLES - DEVICE Fi nal Result Performing Organization Address [facility] [place]/[facility] Co de Phone Number [facility] [place] 1 [facility] [employer] [place] [address] * (ABNORMAL) POCT glucose (09/10/2024 4:40 AM DEBLOCKER) Glucose, POC 359(H) 70 - 199 mg/dL Blood 09/10/2024 4:40 AM DEBLOCKER 09/10/2024 4:40 AM DEBLOCKER us Alexey Zhong MD LAB POCT ORDERABLES - DEVICE Fi nal Result Performing Organization Address City/[facility]/ZIP Co de Phone Number [facility] ([place]) 1 [facility] [employer] [place] [address] * (ABNORMAL) POCT glucose (09/10/2024 3:35 AM DEBLOCKER) [facility] Glucose, POC 400(H) 70 - 199 mg/dL Blood 09/10/2024 3:35 AM DEBLOCKER 09/10/2024 3:35 AM DEBLOCKER Alexey Zhong MD LAB POCT ORDERABLES - DEVICE Fi nal Result Performing Organization Address [facility] [place]/[facility] Co de Phone Number [facility] [place] 1 [facility] [employer] [place] [address] * Troponin T high-sensitivity 6-hour (09/10/2024 2:36 AM DEBLOCKER) [facility] Trop T hs 21 <=22 ng/L Comment: Interpretive Data For further hscTnT resources including the diagnostic algorithm and an aid in interpretation, copy and paste this link: https://nrl.testcatalog.org/show/hsTrop Current Interpretive Data last revised 2020. Trop T hs delta -3 ng/L [facility] [place]) Trop T hs interp Insignificant [facility] ([place]) Blood 09/10/2024 2:36 AM DEBLOCKER 09/10/2024 2:50 AM DEBLOCKER us Ortiz Treviño MD LAB BLOOD ORDERABLES Final R esult Performing Organization Address City/[facility]/ZIP Co de Phone Number [facility] ([place]) 1 [facility] Department of [employer] [place] [address] * (ABNORMAL) Sepsis Lactate w/ Reflex (09/10/2024 2:36 AM DEBLOCKER) [facility] Sepsis Lactate 2.4(H) 0.7 - 2.0 mmol/L Blood 09/10/2024 2:36 AM DEBLOCKER 09/10/2024 2:50 AM DEBLOCKER us Ortiz Treviño MD LAB BLOOD ORDERABLES Final R esult Performing Organization Address City/[facility]/ZIP Co de Phone Number [facility] [place]) 1 [facility] [place] [address] * (ABNORMAL) eGFR (09/10/2024 2:36 AM DEBLOCKER) eGFR 52(L) >=60 mL/min/1. 73 m2 Comment: Interpretive Data Reference Interval Normal ?>/= 90 mL/min/1.73m2 Mildly decreased* ? 60 - 89 mL/min/1.73m2 Mildly to moderately decreased ?45 - 59 mL/min/1.73m2 Moderately to severely decreased ??30 - 44 mL/min/1.73m2 Severely decreased ?15 - 29 mL/min/1.73m2 Kidney Failure ?< 15 ??mL/min/1.73m2 *Relative to young adult level Estimated glomerular filtration rate is determined by the 2020 CKD-EPI equation recommended by the National Kidney Foundation (A Unifying Approach to GFR Estimation: Recommendations of the NKF-ASK Task Force on Reassessing the Inclusion of Race in Diagnosing Kidney Disease, JASN 2020). The CKD-EPI equation should not be used for patients with unstable renal function and has not been validated in children and those over 70. Current interpretive data was last reviewed 2021. Blood 09/10/2024 2:36 AM DEBLOCKER 09/10/2024 2:50 AM DEBLOCKER us Juanpablo Ramirez MD LAB BLOOD ORDERABLES Final Resul t Performing Organization Address City/[facility]/ZIP Co de Phone Number [facility] [place] 1 [facility] [place] [address] * (ABNORMAL) Basic metabolic panel (09/10/2024 2:36 AM DEBLOCKER) Sodium 140 135 - 145 mmol/L Potassium, pl 4.1 3.3 - 4.9 mmol/L [facility] ([place]) Chloride 98 97 - 110 mmol/L [facility] ([place]) CO2 12(L) 22 - 32 mmol/L [facility] ([place]) Anion gap 30(H) 2 - 15 mmol/L [facility] ([place]) BUN 37(H) 6 - 25 mg/dL [facility] ([place]) Creatinine 1.55(H) 0.80 - 1.30 mg/dL [facility] ([place]) Glucose 516(C) 70 - 199 mg/dL [facility] ([place]) Comment: Critical Result called by [email or web address] at 2024-09-10 03:30:57. Result Read Back by Jonah Rankin RN ICU Interpretive Data Fasting glucose >/= 126 mg/dl is diagnostic for diabetes. ?? Fasting is defined as no caloric intake for at least 8 hours. Fasting glucose between 100 mg/dl to 125 mg/dl is diagnostic of prediabetes. In a patient with classic symptoms of hyperglycemia or hyperglycemic crisis, a random glucose >/= 200 mg/dl is diagnostic for diabetes. In the absence of unequivocal hyperglycemia, results should be confirmed by repeat testing. The classification and Diagnosis of Diabetes Diabetes Care 2021; 46: S19-S40. Current interpretive data was last revised 2022. Calcium 7.9(L) 8.5 - 10.3 mg/dL [facility] ([place]) Blood 09/10/2024 2:36 AM DEBLOCKER 09/10/2024 2:50 AM DEBLOCKER us Juanpablo Ramirez MD LAB BLOOD ORDERABLES Final Resul t [facility] ([place]) 1 [facility] Department [place] [address] * (ABNORMAL) POCT glucose (09/10/2024 2:30 AM DEBLOCKER) Pathologist [facility] Glucose, POC 463(C) 70 - 199 mg/dL Comment:Glu2: Blood 09/10/2024 2:30 AM DEBLOCKER 09/10/2024 2:30 AM DEBLOCKER us Alexey Zhong MD LAB POCT ORDERABLES - DEVICE Fi nal Result Performing Organization Address City/[facility]/ZIP Co de Phone Number [facility] ([place]) 1 [facility] [employer] [place] [address] * (ABNORMAL) POCT glucose (09/10/2024 1:33 AM DEBLOCKER) Glucose, POC 534(C) 70 - 199 mg/dL Comment:Glu2: Blood 09/10/2024 1:33 AM DEBLOCKER 09/10/2024 1:33 AM DEBLOCKER us Alexey Zhong MD LAB POCT ORDERABLES - DEVICE Fi nal Result Performing Organization Address [facility] [place]/[facility] de Phone Number [facility] ([place]) 1 [facility] [employer] [place] [address] * Blood culture Blood Peripheral (09/10/2024 1:08 AM DEBLOCKER) Report Final Report: No growth Comment:Testing performed by : [facility], 1 [facility], [place]., [address] Blood (Peripheral) 09/10/2024 1:08 AM DEBLOCKER 09/10/2024 6:35 AM DEBLOCKER Narrative [facility] ([place]) - 09/14/2024 7:00 AM DEBLOCKER From a different site than #1. Draw Blood cultures before administration of Antibiotics Collection->Peripheral 1. ?Blood cultures are incubated for 4 days on a continuously monitored blood culture system. The first report of a negative culture is issued within 24 hours of receipt of the specimen in the laboratory. 2. ?Positive culture results are reported as soon as they are detected. 3. ?The most important factor for detection of microbes in the setting of bloodstream infection is the volume of blood submitted for culture. Failure to collect an optimal blood volume can result in false negative blood cultures. For pediatric patients, the recommended blood volume to collect is 1 mL of blood per year of patient age (up to 20 mL) per blood culture set. For adult patients, 20 mL of blood, divided equally between aerobic and anaerobic blood culture bottles, is recommended for each blood culture set. 4. ?For blood cultures with Gram-positive cocci, a rapid molecular test for organism identification may be performed using the I[employer] Careigene Gram-Positive Blood Culture Assay. This assay detects microbial DNA in positive blood culture broth via hybridization of target DNA to capture oligonucleotides on a microarray. This assay has been cleared by the [place] Food and Drug Administration and its performance characteristics have been verified by the [facility] Microbiology Laboratory. 5. ?For questions about this culture, contact the Microbiology Laboratory at [phone]. Interpretive data was last revised on 2020. Ortiz Treviño MD LAB MICROBIOLOGY - GENERAL O RDERABLES Final Result [facility] ([place] 1 [facility] Department [place] [address] * Blood culture Blood Peripheral (09/10/2024 1:08 AM DEBLOCKER) Report Final Report: No growth Comment:Testing performed by : [facility], [address] [facility] [place]., [address] Blood (Peripheral) 09/10/2024 1:08 AM DEBLOCKER 09/10/2024 6:35 AM DEBLOCKER Narrative [facility] ([place]) - 09/14/2024 7:00 AM DEBLOCKER Draw Blood cultures before administration of Antibiotics Collection->Peripheral 1. ?Blood cultures are incubated for 4 days on a continuously monitored blood culture system. The first report of a negative culture is issued within 24 hours of receipt of the specimen in the laboratory. 2. ?Positive culture results are reported as soon as they are detected. 3. ?The most important factor for detection of microbes in the setting of bloodstream infection is the volume of blood submitted for culture. Failure to collect an optimal blood volume can result in false negative blood cultures. For pediatric patients, the recommended blood volume to collect is 1 mL of blood per year of patient age (up to 20 mL) per blood culture set. For adult patients, 20 mL of blood, divided equally between aerobic and anaerobic blood culture bottles, is recommended for each blood culture set. 4. ?For blood cultures with Gram-positive cocci, a rapid molecular test for organism identification may be performed using the [employer] Careigene Gram-Positive Blood Culture Assay. This assay detects microbial DNA in positive blood culture broth via hybridization of target DNA to capture oligonucleotides on a microarray. This assay has been cleared by the [place] Food and Drug Administration and its performance characteristics have been verified by the [facility]biology [facility]. 5. ?For questions about this culture, contact the Microbiology Laboratory at [phone]. Interpretive data was last revised on 2020. Ortiz Treviño MD LAB MICROBIOLOGY - GENERAL O RDERABLES Final Result [facility] ([place] 1 [facility] Department of [employer] [place] [address] * TSH (09/10/2024 1:08 AM DEBLOCKER) Thyroid Stimulating Hormone 0.54 0.30 - 4.20 mcIUnit/mL Blood 09/10/2024 1:08 AM DEBLOCKER 09/10/2024 1:23 AM DEBLOCKER Jason Solitario MD LAB BLOOD ORDERABLE S Final Result [facility] ([place] 1 [facility] Department of [employer] [place] [address] * Creatine kinase (CK), total (09/10/2024 1:08 AM DEBLOCKER) CK 111 40 - 300 Units/L Blood 09/10/2024 1:08 AM DEBLOCKER 09/10/2024 1:23 AM DEBLOCKER us Jason Solitario MD LAB BLOOD ORDERABLE S Final Result [id number] [place]) [facility] [place] [address] * Critical Care (09/10/2024 12:51 AM DEBLOCKER) Narrative Jason Solitario MD - 09/10/2024 12:51 AM DEBLOCKER Jason Solitario MD ? 09/10/2024 12:53 AM Critical Care Performed by: Jason Solitario MD Authorized by: Jason Solitario MD ?? CRITICAL CARE: ??Team: ??EICU ??Shift: ??PM ??Level of Billing: ??Critical Care ??My time spent with this patient was 45 minutes: Critical Provider Statement: I have seen and examined the patient on this day of service. I have reviewed and confirmed the history, physical exam, laboratory and radiologic data as documented in the signed ICU note. I have reviewed and discussed my treatment plan with the ICU team and other medical/national sales consultant staff, making frequent assessments and decisions regarding this patient's complex medical care. Critical Care time was exclusive of time spent performing separately billed procedures, treating other patients, and teaching. This time was in addition to and separate from critical care provided by other practitioners in my group on this day of service. Critical Care was necessary to treat or prevent imminent or life-threatening deterioration of the following conditions: ? Acid-base disturbance, Acute kidney injury, Acute electrolyte derangement, Diabetic Ketoacidosis, Lactic acidosis, Hypo- or Hyperglycemia, Hyperkalemia and Dehydration/hypovolemia ??This time was spent by me doing the following: ? Serial laboratory checks and Resuscitation with fluids ?? Glycemic control ?? Hyperkalemia medical management ?? Empiric broad coverage antibiotics and Obtaining appropriate cultures ?? I spent time reviewing and interpreting data from bedside monitors, laboratory results, and imaging, I spent time discussing the management of this critically ill patient with consultants and the medical staff and I spent time documenting in the medical record us Jason Solitario MD IN CLINIC/BEDSIDE O RDERABLES Final Result * (ABNORMAL) Troponin T high-sensitivity 4-hour (09/10/2024 12:27 AM DEBLOCKER) Trop T hs 23(H) <=22 ng/L Comment: Interpretive Data For further hscTnT resources including the diagnostic algorithm and an aid in interpretation, copy and paste this link: https://nrl.testcatalog.org/show/hsTrop Current Interpretive Data last revised 2020. Trop T hs delta -1 ng/L [facility] ([place]) Trop T hs interp Insignificant [facility] ([place]) Blood 09/10/2024 12:2 7 AM DEBLOCKER 09/10/2024 12:36 AM DEBLOCKER us Ortiz Treviño MD LAB BLOOD ORDERABLES Final R esult [facility] ([place]) 1 [facility] [place] [address] * (ABNORMAL) Glucose, whole blood (09/10/2024 12:27 AM DEBLOCKER) Glucose, bld 679(C) 70 - 199 mg/dL Comment:Critical result call ed to and read back by Jonah Rankin_ (PAD CUTTER) on 09/10/2024 00:33:44 CST_ to Sera Burroughs. Blood 09/10/2024 12:2 7 AM DEBLOCKER 09/10/2024 12:29 AM DEBLOCKER us Alexey Zhong MD LAB BLOOD ORDERABLES Final Resu lt [facility] [place] [address] [facility] [place] [address] * Potassium (09/10/2024 12:27 AM DEBLOCKER) Potassium, pl 4.1 3.3 - 4.9 mmol/L Blood 09/10/2024 12:2 7 AM DEBLOCKER 09/10/2024 12:36 AM DEBLOCKER Juanpablo Ramirez MD LAB BLOOD ORDERABLES Final Resul t Performing Organization Address [facility] [place]/[facility]/ZIP Co de Phone Number [facility] ([place] 1 [facility] Department [place] [address] * (ABNORMAL) POCT glucose (09/09/2024 11:45 PM DEBLOCKER) Glucose, POC >600(C) 70 - 199 mg/dL Comment:Glu2: Blood 09/09/2024 11:4 5 PM DEBLOCKER 09/09/2024 11:45 PM DEBLOCKER Alexey Zhong MD LAB POCT ORDERABLES - DEVICE Fi nal Result Performing Organization Address [facility] Co de Phone Number [facility] ([place]) [address] [place] [address] Department [place] [address] * (ABNORMAL) Troponin T high-sensitivity 2-hour (09/09/2024 11:17 PM DEBLOCKER) Trop T hs 24(H) <=22 ng/L Comment: Interpretive Data For further hscTnT resources including the diagnostic algorithm and an aid in interpretation, copy and paste this link: https://nrl.testcatalog.org/show/hsTrop Current Interpretive Data last revised 2020. Trop T hs delta See Comment ng/L CE MARY ALICE [facility] ([place]) Comment:Inappropriate collec tion time to report a delta. Trop T hs pct delta See Comment % [facility] ([place]) Comment:Inappropriate collec tion time to report a delta. Trop T hs interp See Comment C LELIA [facility] ([place]) Comment:Inappropriate collec tion time to report a delta. Blood 09/09/2024 11:1 7 PM DEBLOCKER 09/09/2024 11:20 PM DEBLOCKER us Alexey Zhong MD LAB BLOOD ORDERABLES Final Resu lt Performing Organization Address City/[facility]/ZIP Co de Phone Number [facility] ([place]) 1 [facility] [place] [address] * (ABNORMAL) Sepsis Lactate w/ Reflex (09/09/2024 11:17 PM DEBLOCKER) [facility] Sepsis Lactate 4.8(C) 0.7 - 2.0 mmol/L Comment:Critical result call ed to and read back by Jonah Rankin (PAD CUTTER) on 09/09/2024 23:25:09 CST_ to Sera Celestinkristy. Blood 09/09/2024 11:1 7 PM DEBLOCKER 09/09/2024 11:20 PM DEBLOCKER Ortiz Treviño MD LAB BLOOD ORDERABLES Final R esult [facility] ([place]) 1 [place] [address] * (ABNORMAL) Potassium (09/09/2024 11:17 PM DEBLOCKER) [facility] Potassium, pl 5.1(H) 3.3 - 4.9 mmol/L Blood 09/09/2024 11:1 7 PM DEBLOCKER 09/09/2024 11:20 PM DEBLOCKER Ortiz Treviño MD LAB BLOOD ORDERABLES Final R esult [facility] ([place]) 1 [facility] [place] [address] * Glucose, random (09/09/2024 11:17 PM DEBLOCKER) [facility] Glucose See Comment 70 - 199 mg/dL Comment: See Glucose [phone] Interpretive Data Fasting glucose >/= 126 mg/dl is diagnostic for diabetes. ?? Fasting is defined as no caloric intake for at least 8 hours. Fasting glucose between 100 mg/dl to 125 mg/dl is diagnostic of prediabetes. In a patient with classic symptoms of hyperglycemia or hyperglycemic crisis, a random glucose >/= 200 mg/dl is diagnostic for diabetes. In the absence of unequivocal hyperglycemia, results should be confirmed by repeat testing. The classification and Diagnosis of Diabetes Diabetes Care 2021; 46: S19-S40. Current interpretive data was last revised 2022. Blood 09/09/2024 11:1 7 PM DEBLOCKER 09/09/2024 11:20 PM DEBLOCKER Alexey Zhong MD LAB BLOOD ORDERABLES Final Resu lt Performing Organization Address City/[facility]/ZIP Co de Phone Number ADELITA BARRIOS ([place]) [address] [facility] [place] [address] * (ABNORMAL) Glucose, random (09/09/2024 9:52 PM DEBLOCKER) Glucose 831(C) 70 - 199 mg/dL Comment: Critical Result called by [email or web address] at 2024-09-09 22:31:59. Result Read Back by Jonah Rankin RN ICU Interpretive Data Fasting glucose >/= 126 mg/dl is diagnostic for diabetes. ?? Fasting is defined as no caloric intake for at least 8 hours. Fasting glucose between 100 mg/dl to 125 mg/dl is diagnostic of prediabetes. In a patient with classic symptoms of hyperglycemia or hyperglycemic crisis, a random glucose >/= 200 mg/dl is diagnostic for diabetes. In the absence of unequivocal hyperglycemia, results should be confirmed by repeat testing. The classification and Diagnosis of Diabetes Diabetes Care 2021; 46: S19-S40. Current interpretive data was last revised 2022. Blood 09/09/2024 9:52 PM DEBLOCKER 09/09/2024 9:58 PM DEBLOCKER Alexey Zhong MD LAB BLOOD ORDERABLES Final Resu lt Performing Organization Address City/[facility]/ZIP Co de Phone Number ADELITA BARRIOS ([place]) [address] [facility] [place] [address] * (ABNORMAL) POCT glucose (09/09/2024 9:48 PM DEBLOCKER) Glucose, POC >600(C) 70 - 199 mg/dL Comment:Glu2: Blood 09/09/2024 9:48 PM DEBLOCKER 09/09/2024 9:48 PM DEBLOCKER Alexey Zhong MD LAB POCT ORDERABLES - DEVICE Fi nal Result Performing Organization Address [facility] Co de Phone Number [facility] ([place]) [address] [facility] [place] [address] * ECG 12 lead (09/09/2024 9:37 PM DEBLOCKER) 09/09/2024 9:37 PM DEBLOCKER Narrative [facility] - 09/10/2024 10:49 PM DEBLOCKER Vent Rate: 136 bpm RR Interval: 439 msec NM Interval: 132 msec QRS Duration: 96 msec QT Interval: 292 msec QTC Interval: 372 msec P-R-T [place]: 69 - 73 - 66 degrees IMPRESSION: SINUS TACHYCARDIA MINIMAL ST DEPRESSION ??[0.025+ mV ST DEPRESSION] ABNORMAL RHYTHM ECG NO CHANGE FROM PREVIOUS TRACING NOTED Electronically Signed By: Orville Red MD Ortiz Treviño MD ECG ORDERABLES Final Result Performing Organization Address [facility] Phone Number [facility] [place] [facility] * (ABNORMAL) Urinalysis reflex to microscopic and culture Urine (09/09/2024 9:30 PM DEBLOCKER) Color, ur Yellow Yellow Clarity, ur Clear Clear [facility] ([place]) Specific gravity, ur 1.011 1.003 - 1.030 [facility] ([place]) pH, urine 5.0 [facility] ([place]) Comment: Interpretive Data ? Urine pH is affected by diet, medications, systemic acid-base disturbances, and renal tubular function. ??pH may affect urinary stone formation. ??For example, urine pH below 6.0 may help reduce the tendency for calcium phosphate stones and pH greater than 6.0 may reduce the tendency for uric acid stone formation. Source: [facility] [employer] Current Interpretive Data was last revised on 2017 Protein, ur ql Negative Negative [facility] ([place]) Glucose, ur ql 4+(A) Negative [facility] ([place]) Ketones, ur 2+(A) Negative [facility] ([place]) Bilirubin, ur Negative Negative [facility] ([place]) Blood, ur 3+(A) Negative [facility] ([place]) Urobilinogen, ur <2.0 <2.0 mg/dL [facility] ([place]) Nitrite, ur Negative Negative [facility] ([place]) Leukocyte esterase, ur Negative Negative [facility] ([place]) UA reflex comment Reflex to microscopic UA will be performed. [facility] ([place]) Urine 09/09/2024 9:30 PM DEBLOCKER 09/09/2024 9:34 PM DEBLOCKER Ortiz Treviño MD LAB MICROBIOLOGY - GENERAL O RDERABLES Final Result [facility] ([place]) 1 [facility] Department [place] [address] * Drugs of Abuse Screen, Urine without Confirmation (09/09/2024 9:30 PM DEBLOCKER) Amphetamine, ur Not Detected CutOff 500ng/mL Comment: Interpretive Data - Amphetamines: ??Samples containing greater than 500 ng/mL d-methamphetamine ??or other cross-reacting amphetamine compounds are reported as positive. ??Amphetamine immunoassays are subject to significant false positive rates due to cross-reactivity of non-amphetamine drugs. Confirmatory testing required for definitive results. Current Interpretive Data was last reviewed 2023. Barbiturates, ur Not Detected CutOff 200ng/mL [facility] ([place]) Comment: Interpretive Data - Barbiturates: ??Samples containing greater than 200 ng/mL secobarbital or other cross-reacting barbiturate compounds are reported as positive. ??False positive and false negative results are possible. Confirmatory testing required for definitive results. Current Interpretive Data was last reviewed 2023. Benzodiazepines, ur Not Detected CutOff 100ng/mL [facility] ([place]) Comment: Interpretive Data - Benzodiazepines: ??Samples containing greater than 100 ng/mL nordiazepam or other cross-reacting compounds are reported as positive. False positive and false negative results are possible. Confirmatory testing required for definitive results. Current Interpretive Data was last reviewed 2023. Cannabinoids, ur Not Detected CutOff 50 ng/mL [facility] ([place]) Comment: Interpretive Data - Cannabinoids: ??Samples containing greater than 50 ng/mL delta-9 THC -COOH or other cross-reacting compounds are reported as positive. ??False positive and false negative results are possible. ??Confirmatory testing required for definitive results. Current Interpretive Data was last reviewed 2023. Cocaine, ur Not Detected CutOff 150ng/mL [facility] ([place]) Comment: Interpretive Data - Cocaine: ??Samples containing greater than 150 ng/mL benzoylecgonine or other cross-reacting compounds are reported as positive. False positive and false negative results are possible. Confirmatory testing required for definitive results. Current Interpretive Data was last reviewed 2023. Fentanyl, Ur Not Detected CutOff 5 ng/mL [facility] ([place]) Comment: Interpretive Data - Fentanyl: ??Samples containing greater than 5 ng/mL norfentanyl, fentanyl, or other cross-reacting fentanyl compounds are reported as positive. False positive and false negative results are possible. Confirmatory testing required for definitive results. Current Interpretive Data was last reviewed 2023. Methadone, ur Not Detected CutOff 300ng/mL [facility] ([place]) Comment: Interpretive Data - Methadone: ??Samples containing greater than 300 ng/mL d,l-methadone or other cross-reacting compounds are reported as positive. ??False positive and false negative results are possible. Confirmatory testing required for definitive results. Current Interpretive Data was last reviewed 2023. Opiates, ur Not Detected CutOff 300ng/mL [facility] ([place]) Comment: Interpretive Data - Opiates: ??Samples containing greater than 300 ng/mL morphine or other cross-reacting compounds are reported as positive. ??False positive and false negative results are possible. Confirmatory testing required for definitive results. Current Interpretive Data was last reviewed 2023. Oxycodone, ur Not Detected CutOff 100ng/mL [facility] ([place]) Comment: Interpretive Data - Oxycodone: ??Samples containing greater than 100 ng/mL oxycodone or other cross-reacting compounds are reported as ??positive. ??False positive and false negative results are possible. Confirmatory testing required for definitive results. Current Interpretive Data was last reviewed 2023. Phencyclidine, ur Not Detected CutOff 25 ng/mL [facility]RI[facility] ([place]) Comment: Interpretive Data - Phencyclidine: ??Samples containing greater than 25 ng/mL phencyclidine or other cross-reacting compounds are reported as positive. ??False positive and false negative results are possible. Confirmatory testing required for definitive results. Current Interpretive Data was last reviewed 2023. Urine Creatinine 20 mg/dL NAKIA BARRIOS ([place]) Comment: Interpretive Data Urine Creatinine: < 10 mg/dL is extremely dilute = or > 10 but < 20 mg/dL is dilute = or > 20 mg/dL is normal Current Interpretive Data was last revised on 2018. Urine 09/09/2024 9:30 PM DEBLOCKER 09/09/2024 9:47 PM DEBLOCKER Narrative A[facility]ITA BARRIOS ([place]) - 09/09/2024 10:03 PM DEBLOCKER Drug of Abuse screening is performed by immunoassay for medical purposes only. ??This is not to be used for Pain Management purposes. Ortiz Treviño MD LAB URINE ORDERABLES Final R esult ADELITA BARRI[facility] ([place]) [address] [facility] Department [place] [address] * (ABNORMAL) Urinalysis, microscopic only (09/09/2024 9:30 PM DEBLOCKER) WBC, ur 0-5 0 - 5 /HPF RBC, ur 11-20(A) 0 - 2 /HPF A[facility] ([place]) Epithelial cells, squamous, ur 1-5 0 - 5 /HPF A[facility]ITA [facility] ([place]) Bacteria, ur 1+(A) [facility] ([place]) Mucous, ur Present(A) ADELITA Majano ([place]) Hyaline casts, ur 11-20(A) 0 - 10 /LPF ADELITA BARRIOS ([place]) Culture Reflex Comment Reflex conditions for urine culture (WBC >10) not met. A[facility]ITA BARRI[facility] ([place]) Urine 09/09/2024 9:30 PM DEBLOCKER 09/09/2024 9:34 PM DEBLOCKER us Ortiz Treviño MD LAB URINE ORDERABLES Final R esult Performing Organization Address City/[facility]/ZIP Co de Phone Number ADELITA BARRIOS ([place]) 1 [facility] Department [place] [address] * NM CRITICAL CARE ILL/INJURED PATIENT INIT 30-74 MIN (09/09/2024 9:00 PM DEBLOCKER) Narrative Ortiz Treviño MD - 09/09/2024 9:00 PM DEBLOCKER Ortiz Treviño MD ? 09/09/2024 ??9:00 PM Critical Care Performed by: Ortiz Treviño MD Authorized by: Ortiz Treviño MD ?? Critical care provider statement: As reflected in the history, physical exam, orders, notes, and/or MDM, I was personally present while the patient was critically ill and provided critical care services for 60 minutes, excluding time involved in separately billable procedures. ??Critical care was necessary to treat or prevent imminent or life-threatening deterioration of the following condition(s): ?? hyperkalemia management and diabetic ketoacidosis ?? I provided emergent necessary critical care medicine services to this patient. I ordered and reviewed test results and/or imaging studies. I spent time discussing the management of this critically ill patient with consultants and the medical staff. us Ortiz Treviño MD IN CLINIC/BEDSIDE ORDERABLES Final Result * (ABNORMAL) POCT glucose (09/09/2024 8:49 PM DEBLOCKER) Glucose, POC >600(C) 70 - 199 mg/dL Comment:Glu2: RN/MD Notified Blood 09/09/2024 8:49 PM DEBLOCKER 09/09/2024 8:49 PM DEBLOCKER us Alexey Zhong MD LAB POCT ORDERABLES - DEVICE Fi nal Result Performing Organization Address City/[facility]/ZIP Co de Phone Number ADELITA BARRIOS ([place]) 1 [facility] Department [place] [address] * (ABNORMAL) Blood gas, arterial (09/09/2024 8:29 PM DEBLOCKER) pH, Art 6.98(C) 7.35 - 7.45 Comment:Critical result call ed to and read back by Nima Lawler (ER Charge) on 09/09/2024 20:36:46 CST_ to Sera Burroughs. PCO2, Arterial See Comment 35 - 45 mmHg [facility] ([place]) Comment:Value below the repo rtable range. No result given. PO2, Arterial 141(H) 83 - 108 mmHg [facility] ([place]) HCO3 Art (Calculated) See Comment 20 - 30 mmol/L [facility] ([place]) Comment:No result given. BE, art See Comment mmol/L CERTIKI A ([place]) Comment: No result given. Interpretive Data No Reference Range Established Current Interpretive Data was last revised on 2017 O2 Sat Art (Measured) 98(H) 90 - 95 % [facility] ([place]) Blood 09/09/2024 8:29 PM DEBLOCKER 09/09/2024 8:32 PM DEBLOCKER Ortiz Treviño MD LAB BLOOD ORDERABLES Final R esult [facility] ([place]) 1 [facility] Department [place] [address] * (ABNORMAL) Troponin T high-sensitivity series (baseline, 2hr, 4hr, 6hr) (09/09/2024 8:07 PM DEBLOCKER) Trop T hs 24(H) <=22 ng/L Comment: Interpretive Data For further hscTnT resources including the diagnostic algorithm and an aid in interpretation, copy and paste this link: https://nrl.testcatalog.org/show/hsTrop Current Interpretive Data last revised 2020. Blood 09/09/2024 8:07 PM DEBLOCKER 09/09/2024 8:11 PM DEBLOCKER us Ortiz Treviño MD LAB BLOOD ORDERABLES Final R esult Performing Organization Address City/[facility] Co de Phone Number [facility] [place]) 1 [facility] [employer] [place] [address] * (ABNORMAL) Sepsis Lactate w/ Reflex (09/09/2024 8:07 PM DEBLOCKER) Pathologist [facility] Sepsis Lactate 7.9(C) 0.7 - 2.0 mmol/L Comment:Critical result call ed to and read back by Nima Lawler (ER Charge) on 09/09/2024 20:19:01 CST_ to Sera Burroughs. Blood 09/09/2024 8:07 PM DEBLOCKER 09/09/2024 8:12 PM DEBLOCKER Ortiz Treviño MD LAB BLOOD ORDERABLES Final R esult Performing Organization Address City/[facility] Co de Phone Number ADELITA BARRIOS ([place]) [address] [facility] [employer] [place] [address] * (ABNORMAL) eGFR (09/09/2024 8:07 PM DEBLOCKER) Pathologist [facility] eGFR 37(L) >=60 mL/min/1. 73 m2 Comment: Interpretive Data Reference Interval Normal ?>/= 90 mL/min/1.73m2 Mildly decreased* ? 60 - 89 mL/min/1.73m2 Mildly to moderately decreased ?45 - 59 mL/min/1.73m2 Moderately to severely decreased ??30 - 44 mL/min/1.73m2 Severely decreased ?15 - 29 mL/min/1.73m2 Kidney Failure ?< 15 ??mL/min/1.73m2 *Relative to young adult level Estimated glomerular filtration rate is determined by the 2020 CKD-EPI equation recommended by the National Kidney Foundation (A Unifying Approach to GFR Estimation: Recommendations of the NKF-ASK Task Force on Reassessing the Inclusion of Race in Diagnosing Kidney Disease, JASN 2020). The CKD-EPI equation should not be used for patients with unstable renal function and has not been validated in children and those over 70. Current interpretive data was last reviewed 2021. Blood 09/09/2024 8:07 PM DEBLOCKER 09/09/2024 8:11 PM DEBLOCKER Ortiz Treviño MD LAB BLOOD ORDERABLES Final R esult Performing Organization Address City/[facility]/ZIP Co de Phone Number ADELITA BARRIOS ([place]) 1 [facility] [employer] [place] [address] * (ABNORMAL) Lipase (09/09/2024 8:07 PM DEBLOCKER) Lipase 1,150(H) 10 - 99 Units/L Blood 09/09/2024 8:07 PM DEBLOCKER 09/09/2024 8:11 PM DEBLOCKER Ortiz Treviño MD LAB BLOOD ORDERABLES Final R esult Performing Organization Address City/[facility] Co de Phone Number ADELITA BARRIOS ([place]) 1 [facility] [employer] [place] [address] * (ABNORMAL) Blood gas, venous (09/09/2024 8:07 PM DEBLOCKER) pH, Venous 6.92(C) 7.32 - 7.43 Comment:Critical result call ed to and read back by Nima Lawler (ER Charge) on 09/09/2024 20:28:21 CST_ to Sera Burroughs. PCO2, Venous See Comment 40 - 50 mmHg [facility] ([place]) Comment:Value below reportab le range. No result given. PO2, Venous 197 mmHg ADELITA [facility] ([place]) HCO3 Venous, Calculated See Comment 20 - 30 mmol/L [facility] ([place]) Comment:No result given. BE, venous See Comment mmol/L [facility] ([place]) Comment: No result given. Interpretive Data No Reference Range Established Current Interpretive Data was last revised on 2018. Blood 09/09/2024 8:07 PM DEBLOCKER 09/09/2024 8:20 PM DEBLOCKER Ortiz Treviño MD LAB BLOOD ORDERABLES Final R esult Performing Organization Address City/[facility] Co de Phone Number ADELITA BARRIOS ([place]) 1 [facility] [employer] [place] [address] * Ethanol (09/09/2024 8:07 PM DEBLOCKER) Pathologist [facility] Ethanol <10 <=10 mg/dL Comment: Interpretive Data Legal limit of intoxication > or = 80 mg/dL Levels > or = 400 mg/dL are potentially TOXIC. Current interpretive data was last revised on 2018. Blood 09/09/2024 8:07 PM DEBLOCKER 09/09/2024 8:11 PM DEBLOCKER Ortiz Treviño MD LAB BLOOD ORDERABLES Final R esult Performing Organization Address City/[facility] Co de Phone Number ADELITA BARRIOS ([place]) 1 [facility] [employer] [place] [address] * (ABNORMAL) Comprehensive metabolic panel (09/09/2024 8:07 PM DEBLOCKER) Sodium 130(L) 135 - 145 mmol/L Potassium, pl 6.2(C) 3.3 - 4.9 mmol/L [facility] ([place]) Comment:Critical Result call ed by [email or web address] at 2024-09-09 20:53:33. Result Read Back by Nima Lawler ER Charge Chloride 82(L) 97 - 110 mmol/L [facility] ([place]) CO2 4(L) 22 - 32 mmol/L [facility] ([place]) Anion gap 44(H) 2 - 15 mmol/L [facility] ([place]) BUN 37(H) 6 - 25 mg/dL [facility] ([place]) Creatinine 2.03(H) 0.80 - 1.30 mg/dL [facility] ([place]) Glucose 896(C) 70 - 199 mg/dL [facility] ([place]) Comment: Critical Result called by [id number] at 2024-09-09 20:53:40. Result Read Back by Nima Lawler ER Charge Interpretive Data Fasting glucose >/= 126 mg/dl is diagnostic for diabetes. ?? Fasting is defined as no caloric intake for at least 8 hours. Fasting glucose between 100 mg/dl to 125 mg/dl is diagnostic of prediabetes. In a patient with classic symptoms of hyperglycemia or hyperglycemic crisis, a random glucose >/= 200 mg/dl is diagnostic for diabetes. In the absence of unequivocal hyperglycemia, results should be confirmed by repeat testing. The classification and Diagnosis of Diabetes Diabetes Care 2021; 46: S19-S40. Current interpretive data was last revised 2022. Calcium 8.7 8.5 - 10.3 mg/dL [facility] ([place]) Bilirubin, total <0.2 0.1 - 1.2 mg/dL [facility] ([place]) Protein, pl 6.0(L) 6.5 - 8.5 g/dL [facility] ([place]) Albumin 3.8 3.5 - 5.0 g/dL [facility] ([place]) Alk phos 121 40 - 130 Units/L [facility] ([place]) ALT 18 7 - 55 Units/L [facility] ([place]) AST 15 10 - 50 Units/L [facility] ([place]) Blood 09/09/2024 8:07 PM DEBLOCKER 09/09/2024 8:11 PM DEBLOCKER us Ortiz Treviño MD LAB BLOOD ORDERABLES Final R esult [facility] ([place]) 1 [facility] Department [place] [address] * XR Chest 1 Vw Portable (09/09/2024 7:53 PM DEBLOCKER) Anatomical Region Laterality Modality Body, Chest N/A Computed Radiogr aphy 09/09/2024 8:43 PM DEBLOCKER Narrative 09/09/2024 8:46 PM DEBLOCKER EXAM DESCRIPTION: XR CHEST 1 VIEW REASON FOR STUDY: general weakness ?? C/o hyperglycemia tonight. ?? TECHNIQUE: Frontal ??radiographic view(s) of the chest. COMPARISON: None available FINDINGS: LUNGS: Mild bibasilar atelectasis. ?? No focal pulmonary parenchymal consolidation, pleural effusion, or pneumothorax. ?? HEART/MEDIASTINUM: ??Cardiac silhouette normal in size. Mediastinal and hilar contours appear normal. LINES/TUBES: ??None. BONES: ??No acute osseous abnormality. IMPRESSION: No acute cardiopulmonary abnormality. THIS IS AN ELECTRONICALLY VERIFIED FINAL REPORT 09/09/2024 8:46 PM - Electronically signed by ??Cruz Craig M.D. AT: AT D: ??09/09/2024 8:46 PM T: ??09/09/2024 8:46 PM Report ID: [id number] Reading Location: ??[id number] Procedure Note Cruz Craig MD - 09/09/2024 EXAM DESCRIPTION: XR CHEST 1 VIEW REASON FOR STUDY: general weakness C/o hyperglycemia tonight. TECHNIQUE: Frontal radiographic view(s) of the chest. COMPARISON: None available FINDINGS: LUNGS: Mild bibasilar atelectasis. No focal pulmonary parenchymal consolidation, pleural effusion, or pneumothorax. HEART/MEDIASTINUM: Cardiac silhouette normal in size. Mediastinal andhilar contours appear normal. LINES/TUBES: None. BONES: No acute osseous abnormality. IMPRESSION: No acute cardiopulmonary abnormality. THIS IS AN ELECTRONICALLY VERIFIED FINAL REPORT 09/09/2024 8:46 PM - Electronically signed by Cruz Craig M.D. AT: AT Report ID: [id number] Reading Location: [id number] us Ortiz Treviño MD IMG XR PROCEDURES Final Resu lt * (ABNORMAL) POCT glucose (09/09/2024 7:40 PM DEBLOCKER) Pathologist [facility] Glucose, POC >600(C) 70 - 199 mg/dL Comment:Glu2: RN/ Notified Blood 09/09/2024 7:40 PM DEBLOCKER 09/09/2024 7:40 PM DEBLOCKER Ortiz Treviño MD LAB POCT ORDERABLES - DEVICE Final Result Performing Organization Address City/[facility]/ZIP Co de Phone Number [facility] [address] [place] [address] Department [place] [address] * Influenza A/B, RSV, and COVID-19 PCR Nasopharyngeal (09/09/2024 7:29 PM DEBLOCKER) [facility] COVID-19 RNA Negative Negative Influenza A RNA Negative Negative [facility] ([place]) Influenza B RNA Negative Negative [facility] ([place]) RSV RNA Negative Negative [facility] ([place]) Comment: Interpretive data: Testing performed by [facility]. This test is performed using the [employer] Xpert Xpress CoV-2/Flu/RSV plus assay. This is a multiplex, real- time reverse transcriptase PCR assay intended for the qualitative detection of nucleic acid from SARS-CoV-2, influenza A, influenza B, and respiratory syncytial virus. This assay has been cleared by the [place] Food and Drug administration. The performance characteristics have been verified by the [facility]. ?? Results must be considered in the clinical context, and a negative result does not rule out infection. Interpretive Data last revised 2023 Nasopharyngeal 09/09/2024 7: 29 PM DEBLOCKER 09/09/2024 7:32 PM DEBLOCKER Narrative [facility] ([place]) - 09/09/2024 8:13 PM DEBLOCKER Is the Patient experiencing symptoms consistent with COVID?->Unknown Ortiz Treviño MD LAB MICROBIOLOGY - GENERAL O RDERABLES Final Result Performing Organization Address City/[facility]/ZIP Co de Phone Number [facility] ([place]) 1 [facility] Department [place] [address] * ECG 12 lead (09/09/2024 7:23 PM DEBLOCKER) 09/09/2024 7:23 PM DEBLOCKER Narrative [facility] - 09/10/2024 10:49 PM DEBLOCKER Vent Rate: 155 bpm RR Interval: 386 msec NM Interval: 0 msec QRS Duration: 101 msec QT Interval: 286 msec QTC Interval: 373 msec P-R-T [place]: [id number] - 62 - 76 degrees IMPRESSION: Sinus TACHYCARDIA POSSIBLE INFERIOR MYOCARDIAL INFARCTION , OF INDETERMINATE AGE [30 ms Q WAVE IN II/aVF] NO CHANGE FROM PREVIOUS TRACING NOTED Electronically Signed By: Orville Red MD us Ortiz Treviño MD ECG ORDERABLES Final Result [facility] * (ABNORMAL) eGFR (09/09/2024 6:34 PM DEBLOCKER) eGFR 38(L) >=60 mL/min/1. 73 m2 Comment: Interpretive Data Reference Interval Normal ?>/= 90 mL/min/1.73m2 Mildly decreased* ? 60 - 89 mL/min/1.73m2 Mildly to moderately decreased ?45 - 59 mL/min/1.73m2 Moderately to severely decreased ??30 - 44 mL/min/1.73m2 Severely decreased ?15 - 29 mL/min/1.73m2 Kidney Failure ?< 15 ??mL/min/1.73m2 *Relative to young adult level Estimated glomerular filtration rate is determined by the 2020 CKD-EPI equation recommended by the [employer] (A Unifying Approach to GFR Estimation: Recommendations of the NKF-ASK Task Force on Reassessing the Inclusion of Race in Diagnosing Kidney Disease, JASN 202). The CKD-EPI equation should not be used for patients with unstable renal function and has not been validated in children and those over 70. Current interpretive data was last reviewed 2021. Blood 09/09/2024 6:34 PM DEBLOCKER 09/09/2024 6:44 PM DEBLOCKER us Juanpablo Ramirez MD LAB BLOOD ORDERABLES Final Resul t [facility] ([place]) [address] [facility] [place] [address] * (ABNORMAL) CBC with auto differential (09/09/2024 6:34 PM DEBLOCKER) WBC 20.4(H) 3.8 - 9.9 K/cumm Hgb 14.2 13.0 - 17.5 g/dL [facility] ([place]) Hct 46.4 38.9 - 50.3 % [facility] ([place]) Plt 302 150 - 400 K/cumm [facility] ([place]) MPV 11.1 9.1 - 12.3 fL [facility] ([place]) RBC 4.89 4.30 - 5.80 M/cumm [facility] ([place]) MCV 94.9 81.3 - 96.4 fL [facility] ([place]) MCH 29.0 27.1 - 33.3 pg [facility] ([place]) MCHC 30.6(L) 32.3 - 35.7 g/dL [facility] ([place]) RDW CV 13.0 11.1 - 14.9 % [facility] ([place]) RDW SD 45.6 35.7 - 48.1 fL [facility] ([place]) NRBC abs 0.00 0.00 - 0.01 K/cumm [facility] ([place]) Blood 09/09/2024 6:34 PM DEBLOCKER 09/09/2024 7:21 PM DEBLOCKER us Ortiz Treviño MD LAB BLOOD ORDERABLES Final R esult [facility] ([place]) [address] [facility] [place] [address] * (ABNORMAL) Manual Differential (09/09/2024 6:34 PM DEBLOCKER) Differential Manual Cells Counted 100 [facility] ([place]) Neutrophil abs 18.6(H) 1.5 - 6.5 K/cumm [facility] ([place]) Imm gran abs 0.0 0.0 - 0.1 K/cumm [facility] ([place]) Lymphocyte abs 0.8 0.8 - 3.3 K/cumm [facility] ([place]) Monocyte abs 1.0(H) 0.2 - 0.8 K/cumm [facility] ([place]) Neutrophil pct 89.0 % [facility] ([place]) Comment: Interpretive Data Percent cell count reference ranges are not reported, since discordance with absolute values may lead to misinterpretation of CBC data. Current Interpretive Data was last revised on 2018. Lymphocyte pct 3.0 % [facility] ([place]) Comment: Interpretive Data Percent cell count reference ranges are not reported, since discordance with absolute values may lead to misinterpretation of CBC data. Current Interpretive Data was last revised on 2018. Monocyte pct 5.0 % [facility] ([place]) Comment: Interpretive Data Percent cell count reference ranges are not reported, since discordance with absolute values may lead to misinterpretation of CBC data. Current Interpretive Data was last revised on 2018. Band Neutrophil pct 2.0 0.0 - 5.0 % [facility] ([place]) Variant lymph pct 1.0(H) 0.0 - 0.0 % [facility] ([place]) Blood 09/09/2024 6:34 PM DEBLOCKER 09/09/2024 7:21 PM DEBLOCKER us Ortiz Treviño MD LAB BLOOD ORDERABLES Final R esult [facility] ([place]) [facility] Department [place] [address] * (ABNORMAL) Basic metabolic panel (09/09/2024 6:34 PM DEBLOCKER) Sodium 131(L) 135 - 145 mmol/L Potassium, pl 6.9(C) 3.3 - 4.9 mmol/L [facility] ([place]) Comment:Critical Result call ed by [id number] at 2024-09-09 19:22:26. Result Read Back by [facility] [employer] Chloride 81(L) 97 - 110 mmol/L [facility] ([place]) CO2 5(L) 22 - 32 mmol/L [facility] ([place]) Anion gap 46(H) 2 - 15 mmol/L [facility] ([place]) BUN 40(H) 6 - 25 mg/dL [facility] ([place]) Creatinine 1.98(H) 0.80 - 1.30 mg/dL [facility] ([place]) Glucose 879(C) 70 - 199 mg/dL [facility] ([place]) Comment: Critical Result called by [id number] at 2024-09-09 19:22:26. Result Read Back by [facility] [facility] Interpretive Data Fasting glucose >/= 126 mg/dl is diagnostic for diabetes. ?? Fasting is defined as no caloric intake for at least 8 hours. Fasting glucose between 100 mg/dl to 125 mg/dl is diagnostic of prediabetes. In a patient with classic symptoms of hyperglycemia or hyperglycemic crisis, a random glucose >/= 200 mg/dl is diagnostic for diabetes. In the absence of unequivocal hyperglycemia, results should be confirmed by repeat testing. The classification and Diagnosis of Diabetes Diabetes Care 2021; 46: S19-S40. Current interpretive data was last revised 2022. Calcium 8.8 8.5 - 10.3 mg/dL [facility] ([place]) Blood 09/09/2024 6:34 PM DEBLOCKER 09/09/2024 6:44 PM DEBLOCKER us Juanpablo Ramirez MD LAB BLOOD ORDERABLES Final Resul t [facility] ([place]) [facility] Department [place] [address] * (ABNORMAL) POCT glucose (09/09/2024 6:17 PM DEBLOCKER) Glucose, POC >600(C) 70 - 199 mg/dL Comment:Glu2: Blood 09/09/2024 6:17 PM DEBLOCKER 09/09/2024 6:17 PM DEBLOCKER us Notinfile Unknown LAB POCT ORDERABLES - DEVICE F inal Result Performing Organization Address City/State/[facility] Co de Phone Number [facility] ([place]) [facility] Department [place] [address] from Last 3 Months Additional Health Concerns Infection Onset Date Last Indicated MRSA 09/10/2024 09/10/2024 Insurance [facility] Advance Directives For more information, please contact: [phone] * Full Code (Latest Code Status on File) Date Activated Date Inactivated Comments 09/13/2024 1:54 PM 09/14/2024 7:29 PM * Full Code Date Activated Date Inactivated Comments 09/10/2024 6:45 AM 09/13/2024 1:54 PM Care Teams Quality Analyst/Technical Writer Relationship Specialty Start Date End Date Trell Crow DO [address] [facility] [address] [place] [address] [address] [place] [address] PCP - General Internal Medicine 09/09/24 Chris Caraballo MD [address] [place] [id number] Consulting Physician Gastroenterology 09/14/24
--- OUTSIDE RECORDS SUMMARY | 2024-11-10 13:48 | XMS_ITS | Referral Summary ---
Author Organization [facility] Address [address] [place] [address] Care Team Providers Care Speech Language Pathology Assistant Name Role Phone Trell Crow Primary Care Provider [phone] Chris Caraballo MD Unavailable [phone] Encounters Date Type Department Care Team Description 09/22/20 24 Telephone [facility] Gastroenterology at [address] [place] [id number] CatrachoMauroStephanie 09/09/20 24 6:20 PM TRAVEL INFORMATION CENTER SUPERVISOR - 09/14/20 24 3:22 PM TRAVEL INFORMATION CENTER SUPERVISOR Hospital Encounter [facility] IMU [address] [place] [address] Ortiz Treviño MD Masetti, Paolo, MD Sinha, Chandni, MD Nations, Jose Morgan, DO Diabetic ketoacidosis without coma associated with type 2 diabetes mellitus (CMS/HCC) (HCC) (Primary Dx); Lactic acidosis; Upper abdominal pain Discharge Disposition: Discharge to home or self care 09/13/20 24 3:29 PM TRAVEL INFORMATION CENTER SUPERVISOR Anesthesia Event [address] [address] Manish Burnett MD Kory, Christopher James, MD 09/13/20 24 6:05 PM TRAVEL INFORMATION CENTER SUPERVISOR - 09/13/20 24 6:40 PM TRAVEL INFORMATION CENTER SUPERVISOR Surgery [address] [address] Chris Caraballo MD ESOPHAGOGASTRODUODENOSCOPY BIOPSY from Last 3 Months Allergies No known active allergies Medications insulin [...] 25 Active blood-glucose meter,continuou s (Dexcom G7 Tile Layer) misc Use as directed. 1 each 4 Active blood-glucose sensor (Dexcom G7 Sensor) device Use as directed. Change sensor every 10 days. 3 each 4 Active Active Problems Problem Noted Date Diagnosed Date Diabetic ketoacidosis withou t coma associated with type 2 diabetes mellitus (CMS/HCC) 09/09/2024 Upper abdominal pain 09/09/2024 Social History Tobacco Use Types Packs/Day Years Used Date Smoking Tobacco: Every Day Cigarettes 1 40 Passive Smoke Exposure: Current Smokeless Tobacco: Current Tobacco Cessation:Ready to Q uit: Not Asked; Counseling Given: Not Answered Comments:Has not smoke in 5-6 days because not feeling well. Says he wants to quit . [facility] Utilities Answer Date Recorded In the past 12 months has [email or web address], gas, oil, or water [employer] threatened to shut off services in your [...] often do you attend chur ch or baptism services? Never 09/12/2024 Do you belong to any clubs o r organizations such as mormon groups, unions, fraternal or athletic groups, or [...] any time in the past 12 m [facility], were you homeless or living in a long-term (including now)? No 09/12/2024 Personal Safety Answer Date Recorded Have you ever been in or are you currently in a harmful physical or emotional relationship or is someone making you feel afraid or unsafe? Denies 09/13/2024 Sex and Gender Information Value Date Recorded Sex Assigned at Not on file Legal Sex Male 3:28 PM TRAVEL INFORMATION CENTER SUPERVISOR Gender Identity Not on file Sexual Orientation Not on file Last Filed Vital Signs Vital Sign Reading Time Taken Comments Blood Pressure 128/64 09/14/2024 11:19 AM TRAVEL INFORMATION CENTER SUPERVISOR Pulse 64 09/14/2024 11:19 AM TRAVEL INFORMATION CENTER SUPERVISOR Temperature 36.7 ??C (98 ??F) 09/14/2024 11: 19 AM TRAVEL INFORMATION CENTER SUPERVISOR Respiratory Rate 18 09/14/2024 11:1 9 AM TRAVEL INFORMATION CENTER SUPERVISOR Oxygen Saturation 100% 09/14/2024 11: 19 AM TRAVEL INFORMATION CENTER SUPERVISOR Inhaled Oxygen Concentration - - Weight 70.6 kg (155 lb 10.3 oz) 024 10:25 PM TRAVEL INFORMATION CENTER SUPERVISOR Height 182.9 cm (6') 09/09/2024 10:25 PM TRAVEL INFORMATION CENTER SUPERVISOR Body Mass Index 21.11 09/09/2024 10:25 PM TRAVEL INFORMATION CENTER SUPERVISOR Plan of Treatment Not on file Procedures Procedure Name Priority Date/Time Associated Diagnosis Comments POCT GLUCOSE DEVICE Routine 09/14/2024 12:01 PM TRAVEL INFORMATION CENTER SUPERVISOR POCT GLUCOSE DEVICE Routine 09/14/2024 8:05 AM TRAVEL INFORMATION CENTER SUPERVISOR EGFR Routine 09/14/2024 2:45 AM TRAVEL INFORMATION CENTER SUPERVISOR COMPREHENSIVE METABOLIC PANEL Routine 2:45 AM TRAVEL INFORMATION CENTER SUPERVISOR POCT GLUCOSE DEVICE Routine 09/14/2024 2:11 AM TRAVEL INFORMATION CENTER SUPERVISOR POCT GLUCOSE DEVICE Routine 09/13/2024 8:18 PM TRAVEL INFORMATION CENTER SUPERVISOR POCT GLUCOSE DEVICE Routine 09/13/2024 4:43 PM TRAVEL INFORMATION CENTER SUPERVISOR ESOPHAGOGASTRODUODENOSCOPY BIOPSY 09/13/2024 3:23 PM TRAVEL INFORMATION CENTER SUPERVISOR Upper abdominal pain POCT GLUCOSE DEVICE Routine 09/13/2024 3:23 PM TRAVEL INFORMATION CENTER SUPERVISOR EGD 09/13/2024 2:39 PM TRAVEL INFORMATION CENTER SUPERVISOR POCT GLUCOSE DEVICE Routine 09/13/2024 11:59 AM TRAVEL INFORMATION CENTER SUPERVISOR SURGICAL PATHOLOGY STAT 09/13/2024 10:02 AM TRAVEL INFORMATION CENTER SUPERVISOR Upper abdominal pain POCT GLUCOSE DEVICE Routine 09/13/2024 8:10 AM TRAVEL INFORMATION CENTER SUPERVISOR US RUQ IP Routine 09/13/2024 7:35 AM TRAVEL INFORMATION CENTER SUPERVISOR EGFR Routine 09/13/2024 1:59 AM TRAVEL INFORMATION CENTER SUPERVISOR LIPID PANEL Routine 09/13/2024 1:59 AM TRAVEL INFORMATION CENTER SUPERVISOR COMPREHENSIVE METABOLIC PANEL Routine 1:59 AM TRAVEL INFORMATION CENTER SUPERVISOR POCT GLUCOSE DEVICE Routine 09/13/2024 1:51 AM TRAVEL INFORMATION CENTER SUPERVISOR POCT GLUCOSE DEVICE Routine 09/12/2024 8:45 PM TRAVEL INFORMATION CENTER SUPERVISOR POCT GLUCOSE DEVICE Routine 09/12/2024 4:23 PM TRAVEL INFORMATION CENTER SUPERVISOR POCT GLUCOSE DEVICE Routine 09/12/2024 3:35 PM TRAVEL INFORMATION CENTER SUPERVISOR POCT GLUCOSE DEVICE Routine 09/12/2024 3:10 PM TRAVEL INFORMATION CENTER SUPERVISOR POCT GLUCOSE DEVICE Routine 09/12/2024 12:20 PM TRAVEL INFORMATION CENTER SUPERVISOR POCT GLUCOSE DEVICE Routine 09/12/2024 7:56 AM TRAVEL INFORMATION CENTER SUPERVISOR POCT GLUCOSE DEVICE Routine 09/12/2024 2:10 AM TRAVEL INFORMATION CENTER SUPERVISOR EGFR Routine 09/12/2024 2:08 AM TRAVEL INFORMATION CENTER SUPERVISOR COMPREHENSIVE METABOLIC PANEL Routine 2:08 AM TRAVEL INFORMATION CENTER SUPERVISOR POCT GLUCOSE DEVICE Routine 09/11/2024 8:41 PM TRAVEL INFORMATION CENTER SUPERVISOR POCT GLUCOSE DEVICE Routine 09/11/2024 4:49 PM TRAVEL INFORMATION CENTER SUPERVISOR POCT GLUCOSE DEVICE Routine 09/11/2024 11:35 AM TRAVEL INFORMATION CENTER SUPERVISOR LIPASE Routine 09/11/2024 9:35 AM TRAVEL INFORMATION CENTER SUPERVISOR POCT GLUCOSE DEVICE Routine 09/11/2024 7:44 AM TRAVEL INFORMATION CENTER SUPERVISOR POCT GLUCOSE DEVICE Routine 09/11/2024 6:45 AM TRAVEL INFORMATION CENTER SUPERVISOR POCT GLUCOSE DEVICE Routine 09/11/2024 5:55 AM TRAVEL INFORMATION CENTER SUPERVISOR POCT GLUCOSE DEVICE Routine 09/11/2024 4:47 AM TRAVEL INFORMATION CENTER SUPERVISOR EGFR Routine 09/11/2024 3:48 AM TRAVEL INFORMATION CENTER SUPERVISOR DIFFERENTIAL AUTO Routine 09/11/2024 3:48 AM TRAVEL INFORMATION CENTER SUPERVISOR CBC WITH AUTO DIFFERENTIAL Routine 09/11 3:48 AM TRAVEL INFORMATION CENTER SUPERVISOR COMPREHENSIVE METABOLIC PANEL Routine 3:48 AM TRAVEL INFORMATION CENTER SUPERVISOR POCT GLUCOSE DEVICE Routine 09/11/2024 3:42 AM TRAVEL INFORMATION CENTER SUPERVISOR POCT GLUCOSE DEVICE Routine 09/11/2024 2:33 AM TRAVEL INFORMATION CENTER SUPERVISOR POCT GLUCOSE DEVICE Routine 09/11/2024 1:20 AM TRAVEL INFORMATION CENTER SUPERVISOR EGFR Timed 09/11/2024 12:37 AM TRAVEL INFORMATION CENTER SUPERVISOR BASIC METABOLIC PANEL Timed 09/11/2024 12:37 AM TRAVEL INFORMATION CENTER SUPERVISOR POCT GLUCOSE DEVICE Routine 09/11/2024 12:17 AM TRAVEL INFORMATION CENTER SUPERVISOR POCT GLUCOSE DEVICE Routine 09/10/2024 11:10 PM TRAVEL INFORMATION CENTER SUPERVISOR POCT GLUCOSE DEVICE Routine 09/10/2024 10:05 PM TRAVEL INFORMATION CENTER SUPERVISOR POCT GLUCOSE DEVICE Routine 09/10/2024 9:02 PM TRAVEL INFORMATION CENTER SUPERVISOR POCT GLUCOSE DEVICE Routine 09/10/2024 8:00 PM TRAVEL INFORMATION CENTER SUPERVISOR POCT GLUCOSE DEVICE Routine 09/10/2024 6:45 PM TRAVEL INFORMATION CENTER SUPERVISOR EGFR Timed 09/10/2024 6:43 PM TRAVEL INFORMATION CENTER SUPERVISOR BASIC METABOLIC PANEL Timed 09/10/2024 6:43 PM TRAVEL INFORMATION CENTER SUPERVISOR POCT GLUCOSE DEVICE Routine 09/10/2024 5:44 PM TRAVEL INFORMATION CENTER SUPERVISOR POCT GLUCOSE DEVICE Routine 09/10/2024 4:43 PM TRAVEL INFORMATION CENTER SUPERVISOR POCT GLUCOSE DEVICE Routine 09/10/2024 3:45 PM TRAVEL INFORMATION CENTER SUPERVISOR POCT GLUCOSE DEVICE Routine 09/10/2024 2:47 PM TRAVEL INFORMATION CENTER SUPERVISOR POCT GLUCOSE DEVICE Routine 09/10/2024 1:48 PM TRAVEL INFORMATION CENTER SUPERVISOR POCT GLUCOSE DEVICE Routine 09/10/2024 1:08 PM TRAVEL INFORMATION CENTER SUPERVISOR EGFR Timed 09/10/2024 12:36 PM TRAVEL INFORMATION CENTER SUPERVISOR BASIC METABOLIC PANEL Timed 09/10/2024 12:36 PM TRAVEL INFORMATION CENTER SUPERVISOR POCT GLUCOSE DEVICE Routine 09/10/2024 11:41 AM TRAVEL INFORMATION CENTER SUPERVISOR CT ABDOMEN PELVIS WO CONTRAST IP Routine 10:10 AM TRAVEL INFORMATION CENTER SUPERVISOR POCT GLUCOSE DEVICE Routine 09/10/2024 9:49 AM TRAVEL INFORMATION CENTER SUPERVISOR MRSA ONLY (STAPHYLOCOCCUS AUREUS) PCR Routine 09/10/2024 9:06 AM TRAVEL INFORMATION CENTER SUPERVISOR POCT GLUCOSE DEVICE Routine 09/10/2024 8:47 AM TRAVEL INFORMATION CENTER SUPERVISOR LIPASE Routine 09/10/2024 8:07 AM TRAVEL INFORMATION CENTER SUPERVISOR AMYLASE Routine 09/10/2024 8:07 AM TRAVEL INFORMATION CENTER SUPERVISOR CORTISOL Routine 09/10/2024 8:07 AM TRAVEL INFORMATION CENTER SUPERVISOR LACTATE Routine 09/10/2024 8:07 AM TRAVEL INFORMATION CENTER SUPERVISOR POCT GLUCOSE DEVICE Routine 09/10/2024 7:46 AM TRAVEL INFORMATION CENTER SUPERVISOR POCT GLUCOSE DEVICE Routine 09/10/2024 6:41 AM TRAVEL INFORMATION CENTER SUPERVISOR POCT GLUCOSE DEVICE Routine 09/10/2024 5:39 AM TRAVEL INFORMATION CENTER SUPERVISOR POCT GLUCOSE DEVICE Routine 09/10/2024 4:40 AM TRAVEL INFORMATION CENTER SUPERVISOR POCT GLUCOSE DEVICE Routine 09/10/2024 3:35 AM TRAVEL INFORMATION CENTER SUPERVISOR EGFR Timed 09/10/2024 2:36 AM TRAVEL INFORMATION CENTER SUPERVISOR SEPSIS LACTATE WITH REFLEX Timed 09/10 2:36 AM TRAVEL INFORMATION CENTER SUPERVISOR TROPONIN T HIGH-SENSITIVITY 6-HOUR Timed 09/10/2024 2:36 AM TRAVEL INFORMATION CENTER SUPERVISOR BASIC METABOLIC PANEL Timed 09/10/2024 2:36 AM TRAVEL INFORMATION CENTER SUPERVISOR POCT GLUCOSE DEVICE Routine 09/10/2024 2:30 AM TRAVEL INFORMATION CENTER SUPERVISOR POCT GLUCOSE DEVICE Routine 09/10/2024 1:33 AM TRAVEL INFORMATION CENTER SUPERVISOR TSH Add-On 09/10/2024 1:08 AM TRAVEL INFORMATION CENTER SUPERVISOR CREATINE KINASE (CK), TOTAL Add-On 08/20 1:08 AM TRAVEL INFORMATION CENTER SUPERVISOR BLOOD CULTURE STAT 09/10/2024 1:08 AM TRAVEL INFORMATION CENTER SUPERVISOR BLOOD CULTURE STAT 09/10/2024 1:08 AM TRAVEL INFORMATION CENTER SUPERVISOR CRITICAL CARE Routine 09/10/2024 12:51 AM TRAVEL INFORMATION CENTER SUPERVISOR Diabetic ketoacidosis without coma associated with type 2 diabetes mellitus (CMS/HCC) (HCC) Lactic acidosis GLUCOSE, WHOLE BLOOD STAT 09/10/2024 12:27 AM TRAVEL INFORMATION CENTER SUPERVISOR TROPONIN T HIGH-SENSITIVITY 4-HR Timed 09/10/2024 12:27 AM TRAVEL INFORMATION CENTER SUPERVISOR POTASSIUM LEVEL Timed 09/10/2024 12:27 AM TRAVEL INFORMATION CENTER SUPERVISOR POCT GLUCOSE DEVICE Routine 09/09/2024 11:45 PM TRAVEL INFORMATION CENTER SUPERVISOR GLUCOSE, RANDOM Timed 09/09/2024 11:17 PM TRAVEL INFORMATION CENTER SUPERVISOR TROPONIN T HIGH-SENSITIVITY 2-HOUR Routine 09/09/2024 11:17 PM TRAVEL INFORMATION CENTER SUPERVISOR POTASSIUM LEVEL Timed 09/09/2024 11:17 PM TRAVEL INFORMATION CENTER SUPERVISOR SEPSIS LACTATE WITH REFLEX Timed 09/09 11:17 PM TRAVEL INFORMATION CENTER SUPERVISOR GLUCOSE, RANDOM Timed 09/09/2024 9:52 PM TRAVEL INFORMATION CENTER SUPERVISOR POCT GLUCOSE DEVICE Routine 09/09/2024 9:48 PM TRAVEL INFORMATION CENTER SUPERVISOR ECG 12-LEAD STAT 09/09/2024 9:37 PM TRAVEL INFORMATION CENTER SUPERVISOR URINALYSIS, MICROSCOPIC ONLY STAT 9:30 PM TRAVEL INFORMATION CENTER SUPERVISOR DRUGS OF ABUSE SCREEN, URINE WITHOUT CONFIRMATION STAT 09/09/2024 9:30 PM TRAVEL INFORMATION CENTER SUPERVISOR URINALYSIS AND REFLEX TO MICROSCOPIC AND CULTURE STAT 09/09/2024 9:30 PM TRAVEL INFORMATION CENTER SUPERVISOR CA CRITICAL CARE ILL/INJURED PATIENT INIT 30-74 MIN Routine 09/09/2024 9:00 PM TRAVEL INFORMATION CENTER SUPERVISOR POCT GLUCOSE DEVICE Routine 09/09/2024 8:49 PM TRAVEL INFORMATION CENTER SUPERVISOR BLOOD GAS, ARTERIAL STAT 09/09/2024 8:29 PM TRAVEL INFORMATION CENTER SUPERVISOR EGFR STAT 09/09/2024 8:07 PM TRAVEL INFORMATION CENTER SUPERVISOR BLOOD GAS, VENOUS STAT 09/09/2024 8:07 PM TRAVEL INFORMATION CENTER SUPERVISOR TROPONIN T HIGH-SENSITIVITY SERIES (BASELINE, 2HR, 4HR, 6HR) STAT 09/09/2024 8:07 PM TRAVEL INFORMATION CENTER SUPERVISOR SEPSIS LACTATE WITH REFLEX STAT 09/09 8:07 PM TRAVEL INFORMATION CENTER SUPERVISOR LIPASE STAT 09/09/2024 8:07 PM TRAVEL INFORMATION CENTER SUPERVISOR ETHANOL STAT 09/09/2024 8:07 PM TRAVEL INFORMATION CENTER SUPERVISOR COMPREHENSIVE METABOLIC PANEL STAT 8:07 PM TRAVEL INFORMATION CENTER SUPERVISOR XR CHEST 1 VIEW ED 09/09/2024 7:53 PM TRAVEL INFORMATION CENTER SUPERVISOR POCT GLUCOSE DEVICE Routine 09/09/2024 7:40 PM TRAVEL INFORMATION CENTER SUPERVISOR INFLUENZA A/B, RSV, AND COVID-19 PCR Routine 09/09/2024 7:29 PM TRAVEL INFORMATION CENTER SUPERVISOR ECG 12-LEAD STAT 09/09/2024 7:23 PM TRAVEL INFORMATION CENTER SUPERVISOR MANUAL DIFFERENTIAL STAT 09/09/2024 6:34 PM TRAVEL INFORMATION CENTER SUPERVISOR EGFR Timed 09/09/2024 6:34 PM TRAVEL INFORMATION CENTER SUPERVISOR CBC WITH AUTO DIFFERENTIAL STAT 09/09 6:34 PM TRAVEL INFORMATION CENTER SUPERVISOR BASIC METABOLIC PANEL Timed 09/09/2024 6:34 PM TRAVEL INFORMATION CENTER SUPERVISOR POCT GLUCOSE DEVICE Routine 09/09/2024 6:17 PM TRAVEL INFORMATION CENTER SUPERVISOR from Last 3 Months Results * (ABNORMAL) POCT glucose (09/14/2024 12:01 PM TRAVEL INFORMATION CENTER SUPERVISOR) Pathologist [facility] Glucose, POC 263(H) 70 - 199 mg/dL Blood 09/14/2024 12:0 1 PM TRAVEL INFORMATION CENTER SUPERVISOR 09/14/2024 12:01 PM TRAVEL INFORMATION CENTER SUPERVISOR us Jose Donnelly DO LAB POCT ORDERABLES - DEVICE Final Result [facility] ([facility]) 1 [facility] [place] [address] * POCT glucose (09/14/2024 8:05 AM TRAVEL INFORMATION CENTER SUPERVISOR) [facility] Glucose, POC 168 70 - 199 mg/dL Blood 09/14/2024 8:05 AM TRAVEL INFORMATION CENTER SUPERVISOR 09/14/2024 8:05 AM TRAVEL INFORMATION CENTER SUPERVISOR Jose Donnelly DO LAB POCT ORDERABLES - DEVICE Final Result Performing Organization Address City/[facility] Co de Phone Number [facility] ([facility]) 1 [facility] [place] [address] * eGFR (09/14/2024 2:45 AM TRAVEL INFORMATION CENTER SUPERVISOR) [facility] eGFR >90 >=60 mL/min/1. 73 m2 [...] last reviewed 2021. Blood 09/14/2024 2:45 AM TRAVEL INFORMATION CENTER SUPERVISOR 09/14/2024 3:57 AM TRAVEL INFORMATION CENTER SUPERVISOR us Chris Caraballo MD LAB BLOOD ORDERABLES Final Result [facility] ([place] 1 [facility] Department [place] [address] * (ABNORMAL) Comprehensive metabolic panel (09/14/2024 2:45 AM TRAVEL INFORMATION CENTER SUPERVISOR) Sodium 140 135 - 145 mmol/L Potassium, [...] [facility] ([place]) Blood 09/14/2024 2:45 AM TRAVEL INFORMATION CENTER SUPERVISOR 09/14/2024 3:57 AM TRAVEL INFORMATION CENTER SUPERVISOR Chris Caraballo MD LAB BLOOD ORDERABLES Final Result Performing Organization Address [facility] Co de Phone Number [facility] BARRI[facility] ([place]) 1 [facility] [place] [address] * POCT glucose (09/14/2024 2:11 AM TRAVEL INFORMATION CENTER SUPERVISOR) Glucose, POC 86 70 - 199 mg/dL Blood 09/14/2024 2:11 AM TRAVEL INFORMATION CENTER SUPERVISOR 09/14/2024 2:11 AM TRAVEL INFORMATION CENTER SUPERVISOR Jose Donnelly DO LAB POCT ORDERABLES - DEVICE Final Result Performing Organization Address City/[facility] Co de Phone Number [facility] ([place] 1 [facility] [place] [address] * POCT glucose (09/13/2024 8:18 PM TRAVEL INFORMATION CENTER SUPERVISOR) Glucose, POC 165 70 - 199 mg/dL Blood 09/13/2024 8:18 PM TRAVEL INFORMATION CENTER SUPERVISOR 09/13/2024 8:18 PM TRAVEL INFORMATION CENTER SUPERVISOR Jose Donnelly DO LAB POCT ORDERABLES - DEVICE Final Result Performing Organization Address [facility] Co de Phone Number [facility] ([facility]) [address] [place] [address] * POCT glucose (09/13/2024 4:43 PM TRAVEL INFORMATION CENTER SUPERVISOR) Glucose, POC 179 70 - 199 mg/dL Blood 09/13/2024 4:43 PM TRAVEL INFORMATION CENTER SUPERVISOR 09/13/2024 4:43 PM TRAVEL INFORMATION CENTER SUPERVISOR Jose Donnelly DO LAB POCT ORDERABLES - DEVICE Final Result Performing Organization Address [facility] Co de Phone Number [facility] ([facility]) [address] [place] [address] * POCT glucose (09/13/2024 3:23 PM TRAVEL INFORMATION CENTER SUPERVISOR) Glucose, POC 101 70 - 199 mg/dL Blood 09/13/2024 3:23 PM TRAVEL INFORMATION CENTER SUPERVISOR 09/13/2024 3:23 PM TRAVEL INFORMATION CENTER SUPERVISOR Jose Morgan [facility] DO LAB POCT ORDERABLES - DEVICE Final Result Performing Organization Address [facility] de Phone Number [facility] ([facility]) [address] [place] [address] * EGD (09/13/2024 2:39 PM TRAVEL INFORMATION CENTER SUPERVISOR) Anatomical Region Laterality Modality Other Narrative Procedure Note Chris Caraballo MD - 09/13/2024 2:39 PM CST [facility] Patient Name: Mckenna Ramos Procedure Date: 09/13/2024 2:39 PM Date of : 1965 Admit Type: Inpatient Age: 58 Gender: Male Attending MD: Chris Caraballo M.D. Room: [facility] ENDOSCOPY ROOM 1 Note Status: Finalized Patient [...] passed under direct vision. The Endoscope [id number] was introduced through the mouth, and advanced [...] 2:39 PM Procedure Code(s): --- Professional --- 43091, Esophagogastroduodenoscopy, flexible, transoral; with biopsy, single or multiple Diagnosis Code(s): --- Professional --- K29.80, Duodenitis without bleeding K25.9, Gastric ulcer, unspecified as acute or chronic, without hemorrhage or perforation K21.00, Gastro-esophageal reflux disease with esophagitis, without bleeding R10.10, Upper abdominal pain, unspecified CPT copyright 2020 [employer]. All rights reserved. The codes documented in this report are preliminary and upon guest room inspector reviewmay be revised to meet current compliance requirements. Recognized by the [employer] for promoting quality in endoscopy us Chris Caraballo MD ENDOSCOPY PROCEDURES Final Result * POCT glucose (09/13/2024 11:59 AM TRAVEL INFORMATION CENTER SUPERVISOR) Glucose, POC 117 70 - 199 mg/dL Blood 09/13/2024 11:5 9 AM TRAVEL INFORMATION CENTER SUPERVISOR 09/13/2024 11:59 AM TRAVEL INFORMATION CENTER SUPERVISOR Jose Donnelly DO LAB POCT ORDERABLES - DEVICE Final Result ADELITA [facility] ([facility]) [address] [place] [address] Department [place] [address] * Surgical pathology (09/13/2024 10:02 AM TRAVEL INFORMATION CENTER SUPERVISOR) Tissue (Gastric/Stomach biopsy) 09/13/2024 3:35 PM TRAVEL INFORMATION CENTER SUPERVISOR Tissue (EG Junction, Biopsy) 09/13/2024 3:36 PM TRAVEL INFORMATION CENTER SUPERVISOR Narrative PATHOLOGY [facility] ([facility]) - 09/19/2024 4:59 PM TRAVEL INFORMATION CENTER SUPERVISOR EPIC results best viewed via link to PDF [facility] Department of Pathology [address] [place] [id number] Note to Patients: This report may contain [...] Final Report with Addendum Patient Name: ??MCKENNA RAMOSSanjuana Address: ??[address], ??[place], [place] [address] Gender: ??M : ??1965 (Age: 58) Service: ??Medical Location: ??[facility] Hospital #: ??[id number] Patient Type: ??[facility] IP Accession # ?[id number] Taken: ??09/13/2024 Received: ??09/14/2024 Accessioned: ??09/14/2024 Reported: [...] and 3 mm. All in B. T.A. Denise Ravi.N., P.A./Sarah Nunez M.D. REPORT IMAGES AND SCANNED DOCUMENTS, IF INCLUDED, ONLY VIEWABLE IN PDF VERSION OF REPORT The performance characteristics of some immunohistochemical stains, fluorescence in-situ hybridization tests and immunophenotyping by flow cytometry cited in this report (if any) were determined by the Surgical Pathology Department at [facility] as part of an ongoing quality cloth tester program and in compliance with federally mandated [...] characteristics determined by the Surgical Pathology Department [facility]. ??It has not been cleared or approved by the U. S. Food and Drug Administration. Note for decalcified specimens: This assay has not been validated on decalcified tissues. Results should be interpreted with caution given the possibility of false negativity on decalcified specimens Chris Caraballo MD LAB PATHOLOGY ORDERABLES F inal Result Performing Organization Address [facility]/ZIP Co de Phone Number PATHOLOGY [facility] ([facility]) [address] [place] [address] * POCT glucose (09/13/2024 8:10 AM TRAVEL INFORMATION CENTER SUPERVISOR) Glucose, POC 151 70 - 199 mg/dL Blood 09/13/2024 8:10 AM TRAVEL INFORMATION CENTER SUPERVISOR 09/13/2024 8:10 AM TRAVEL INFORMATION CENTER SUPERVISOR Jose Donnelly DO LAB POCT ORDERABLES - DEVICE Final Result Performing Organization Address [facility] Co de Phone Number [facility] ([facility]) 1 [facility] [place] [address] * US RUQ (09/13/2024 7:35 AM TRAVEL INFORMATION CENTER SUPERVISOR) Anatomical Region Laterality Modality Abdomen N/A Ultrasound 09/13/2024 9:47 AM TRAVEL INFORMATION CENTER SUPERVISOR Narrative 09/13/2024 9:52 AM TRAVEL INFORMATION CENTER SUPERVISOR EXAM DESCRIPTION: ?? US RUQ REASON FOR [...] AM T: ??09/13/2024 9:52 AM Report ID: [id number] Reading Location: ??[id number] Procedure Note Jarred Robison MD - 09/13/2024 [...] Jarred Robison M.D. RB: TARYN Report ID: [id number] Reading Location: [place] [address] us Chris Caraballo MD IMG US PROCEDURES Final Re sult * eGFR (09/13/2024 1:59 AM TRAVEL INFORMATION CENTER SUPERVISOR) eGFR >90 >=60 mL/min/1. 73 m2 Comment: [...] Inclusion of Race in Diagnosing Kidney Disease, SN 2020). The CKD-EPI equation should not be used for patients with unstable renal function and has not been validated in children and those over 70. Current interpretive data was last reviewed 2021. Blood 09/13/2024 1:59 AM TRAVEL INFORMATION CENTER SUPERVISOR 09/13/2024 2:06 AM TRAVEL INFORMATION CENTER SUPERVISOR us Alexey Zhong MD LAB BLOOD ORDERABLES Final Resu lt [facility] ([facility]) 1 [facility] Department [place] [address] * (ABNORMAL) Lipid panel (09/13/2024 1:59 AM TRAVEL INFORMATION CENTER SUPERVISOR) Cholesterol 88 30 - 199 mg/dL Comment: [...] on 2018. Triglycerides 92 <=149 mg/dL [facility] ([place]) Comment: Interpretive Data [...] revised on 2018. HDL 31(L) >=40 mg/dL ADLE[facility] Velez ([place]) Comment: Interpretive Data Ages < or [...] 2018. LDL, calculated 39 <=129 mg/dL [facility] HOLL[facility]) Comment: Interpretive Data Ages < or = 19 years ??Acceptable: ? <110 mg/dL ??Borderline high: ??110-129 mg/dL ??High: ?>or= 130 mg/dL Ages > or = 20 years ??Optimal: ? <100 mg/dL ??Near optimal: ?100-129 mg/dL ??Borderline high: ?? 130-159 mg/dL ??High: ?>160 mg/dL Calculated using the Farr LDL-C estimating equation. This equation was implemented on 2024. Prior to this date LDL-C was estimated using the Friedewald equation. Literature References: 1. Expert Panel on Integrated Guidelines for Cardiovascular Health and Risk Reduction in Children and Adolescents. Pediatrics 2011;128:S213 2. NCEP Expert Panel. Circulation 2004;110:227 3. Yordan Carreon et al. LEILANI Cardiol. 2019February 16;5(5):540-548. doi: [email or web address] Current Interpretive Data was last revised on 2024. Non-HDL Cholesterol 57 mg/dL [facility] ([place]) Comment: Interpretive Data Ages < or [...] last revised on 2018. Chol/HDL ratio 3 [facility] ([place]) Blood 09/13/2024 1:59 AM TRAVEL INFORMATION CENTER SUPERVISOR 09/13/2024 2:06 AM TRAVEL INFORMATION CENTER SUPERVISOR us Chris Caraballo MD LAB BLOOD ORDERABLES Final Result [facility] ([place]) 1 [facility] Department [place] [address] * (ABNORMAL) Comprehensive metabolic panel (09/13/2024 1:59 AM TRAVEL INFORMATION CENTER SUPERVISOR) Sodium 137 135 - 145 mmol/L Potassium, [...] [facility] ([place]) Blood 09/13/2024 1:59 AM TRAVEL INFORMATION CENTER SUPERVISOR 09/13/2024 2:06 AM TRAVEL INFORMATION CENTER SUPERVISOR us Chris Caraballo MD LAB BLOOD ORDERABLES Final Result [facility] ([place]) 1 [facility] Department [place] [address] * POCT glucose (09/13/2024 1:51 AM TRAVEL INFORMATION CENTER SUPERVISOR) Glucose, POC 152 70 - 199 mg/dL Blood 09/13/2024 1:51 AM TRAVEL INFORMATION CENTER SUPERVISOR 09/13/2024 1:51 AM TRAVEL INFORMATION CENTER SUPERVISOR Pavithra Hung MD LAB POCT ORDERABLES - DEVICE Fi nal Result [facility] ([place]) 1 [facility] [place] [address] * (ABNORMAL) POCT glucose (09/12/2024 8:45 PM TRAVEL INFORMATION CENTER SUPERVISOR) Glucose, POC 216(H) 70 - 199 mg/dL Blood 09/12/2024 8:45 PM TRAVEL INFORMATION CENTER SUPERVISOR 09/12/2024 8:45 PM TRAVEL INFORMATION CENTER SUPERVISOR us Pavithra Hung MD LAB POCT ORDERABLES - DEVICE Fi nal Result Performing Organization Address City/[facility]/ZIP Co de Phone Number [facility]RI[facility] ([place]) 1 [facility] [place] [address] * POCT glucose (09/12/2024 4:23 PM TRAVEL INFORMATION CENTER SUPERVISOR) Glucose, POC 112 70 - 199 mg/dL Blood 09/12/2024 4:23 PM TRAVEL INFORMATION CENTER SUPERVISOR 09/12/2024 4:23 PM TRAVEL INFORMATION CENTER SUPERVISOR Pavithra Hung MD LAB POCT ORDERABLES - DEVICE Fi nal Result Performing Organization Address City/[facility]/ZIP Co de Phone Number [facility] ([place]) 1 [facility] [place] [address] * (ABNORMAL) POCT glucose (09/12/2024 3:35 PM TRAVEL INFORMATION CENTER SUPERVISOR) Glucose, POC 68(L) 70 - 199 mg/dL Blood 09/12/2024 3:35 PM TRAVEL INFORMATION CENTER SUPERVISOR 09/12/2024 3:35 PM TRAVEL INFORMATION CENTER SUPERVISOR Pavithra Hung MD LAB POCT ORDERABLES - DEVICE Fi nal Result [facility] ([place]) 1 [facility] [place] [address] * (ABNORMAL) POCT glucose (09/12/2024 3:10 PM TRAVEL INFORMATION CENTER SUPERVISOR) Glucose, POC 55(L) 70 - 199 mg/dL Blood 09/12/2024 3:10 PM TRAVEL INFORMATION CENTER SUPERVISOR 09/12/2024 3:10 PM TRAVEL INFORMATION CENTER SUPERVISOR Pavithra Hung MD LAB POCT ORDERABLES - DEVICE Fi nal Result [facility] ([place]) 1 [place] [address] * POCT glucose (09/12/2024 12:20 PM TRAVEL INFORMATION CENTER SUPERVISOR) Glucose, POC 100 70 - 199 mg/dL Blood 09/12/2024 12:2 0 PM TRAVEL INFORMATION CENTER SUPERVISOR 09/12/2024 12:20 PM TRAVEL INFORMATION CENTER SUPERVISOR Pavithra Hung MD LAB POCT ORDERABLES - DEVICE Fi nal Result [facility] ([place]) 1 [facility] [place] [address] * POCT glucose (09/12/2024 7:56 AM TRAVEL INFORMATION CENTER SUPERVISOR) Glucose, POC 198 70 - 199 mg/dL Blood 09/12/2024 7:56 AM TRAVEL INFORMATION CENTER SUPERVISOR 09/12/2024 7:56 AM TRAVEL INFORMATION CENTER SUPERVISOR Pavithra Hung MD LAB POCT ORDERABLES - DEVICE Fi nal Result [facility] ([place]) 1 [facility] [place] [address] * (ABNORMAL) POCT glucose (09/12/2024 2:10 AM TRAVEL INFORMATION CENTER SUPERVISOR) Glucose, POC 218(H) 70 - 199 mg/dL Blood 09/12/2024 2:10 AM TRAVEL INFORMATION CENTER SUPERVISOR 09/12/2024 2:10 AM TRAVEL INFORMATION CENTER SUPERVISOR us Pavithra Hung MD LAB POCT ORDERABLES - DEVICE Fi nal Result Performing Organization Address [facility] Co de Phone Number [facility]) 1 [facility] Department [place] [address] * eGFR (09/12/2024 2:08 AM TRAVEL INFORMATION CENTER SUPERVISOR) eGFR >90 >=60 mL/min/1. 73 m2 Comment: [...] last reviewed 2021. Blood 09/12/2024 2:08 AM TRAVEL INFORMATION CENTER SUPERVISOR 09/12/2024 4:02 AM TRAVEL INFORMATION CENTER SUPERVISOR us Alexey Zhong MD LAB BLOOD ORDERABLES Final Resu lt Performing Organization Address City/[facility]/ZIP Co de Phone Number [facility]RI[facility] ([place]) 1 [facility] Department [place] [address] * (ABNORMAL) Comprehensive metabolic panel (09/12/2024 2:08 AM TRAVEL INFORMATION CENTER SUPERVISOR) Sodium 138 135 - 145 mmol/L Potassium, pl 3.1(L) 3.3 - 4.9 mmol/L [facility] ([place]) Chloride 100 97 - 110 mmol/L [facility] ([place]) CO2 32 22 - 32 mmol/L [facility] ([place]) Anion gap 6 2 - 15 mmol/L [facility] ([place]) BUN 10 6 - 25 mg/dL [facility] ([place]) Creatinine 0.64(L) 0.80 - 1.30 mg/dL [facility] ([place]) Glucose 228(H) 70 - 199 [...] [facility] ([place]) Blood 09/12/2024 2:08 AM TRAVEL INFORMATION CENTER SUPERVISOR 09/12/2024 4:02 AM TRAVEL INFORMATION CENTER SUPERVISOR Chris Caraballo MD LAB BLOOD ORDERABLES Final Result [facility] ([place]) 1 [facility] [place] [address] * (ABNORMAL) POCT glucose (09/11/2024 8:41 PM TRAVEL INFORMATION CENTER SUPERVISOR) Glucose, POC 294(H) 70 - 199 mg/dL Blood 09/11/2024 8:41 PM TRAVEL INFORMATION CENTER SUPERVISOR 09/11/2024 8:41 PM TRAVEL INFORMATION CENTER SUPERVISOR us Pavithra Hung MD LAB POCT ORDERABLES - DEVICE Fi nal Result Performing Organization Address [facility] Co de Phone Number [facility] ([place]) 1 [facility] [place] [address] * POCT glucose (09/11/2024 4:49 PM TRAVEL INFORMATION CENTER SUPERVISOR) Glucose, POC 92 70 - 199 mg/dL Blood 09/11/2024 4:49 PM TRAVEL INFORMATION CENTER SUPERVISOR 09/11/2024 4:49 PM TRAVEL INFORMATION CENTER SUPERVISOR us Pavithra Hung MD LAB POCT ORDERABLES - DEVICE Fi nal Result Performing Organization Address City/[facility]/ZIP Co de Phone Number [facility] ([place]) 1 [facility] [place] [address] * POCT glucose (09/11/2024 11:35 AM TRAVEL INFORMATION CENTER SUPERVISOR) Glucose, POC 166 70 - 199 mg/dL Blood 09/11/2024 11:3 5 AM TRAVEL INFORMATION CENTER SUPERVISOR 09/11/2024 11:35 AM TRAVEL INFORMATION CENTER SUPERVISOR Pavithra Hung MD LAB POCT ORDERABLES - DEVICE Fi nal Result [facility] ([place]) 1 [facility] [place] [address] * (ABNORMAL) Lipase (09/11/2024 9:35 AM TRAVEL INFORMATION CENTER SUPERVISOR) Lipase 127(H) 10 - 99 Units/L Blood 09/11/2024 9:35 AM TRAVEL INFORMATION CENTER SUPERVISOR 09/11/2024 9:45 AM TRAVEL INFORMATION CENTER SUPERVISOR us Alexey Zhong MD LAB BLOOD ORDERABLES Final Resu lt Performing Organization Address [facility] Co de Phone Number [facility] BARRI[facility] ([place]) 1 [facility] [place] [address] * (ABNORMAL) POCT glucose (09/11/2024 7:44 AM TRAVEL INFORMATION CENTER SUPERVISOR) Glucose, POC 244(H) 70 - 199 mg/dL Blood 09/11/2024 7:44 AM TRAVEL INFORMATION CENTER SUPERVISOR 09/11/2024 7:44 AM TRAVEL INFORMATION CENTER SUPERVISOR us Alexey Zhong MD LAB POCT ORDERABLES - DEVICE Fi nal Result Performing Organization Address [facility] de Phone Number [facility] ([place]) 1 [facility] [place] [address] * (ABNORMAL) POCT glucose (09/11/2024 6:45 AM TRAVEL INFORMATION CENTER SUPERVISOR) Glucose, POC 226(H) 70 - 199 mg/dL Blood 09/11/2024 6:45 AM TRAVEL INFORMATION CENTER SUPERVISOR 09/11/2024 6:45 AM TRAVEL INFORMATION CENTER SUPERVISOR us Alexey Zhong MD LAB POCT ORDERABLES - DEVICE Fi nal Result Performing Organization Address [facility] Co de Phone Number [facility] ([place]) 1 [facility] [place] [address] * (ABNORMAL) POCT glucose (09/11/2024 5:55 AM TRAVEL INFORMATION CENTER SUPERVISOR) Glucose, POC 229(H) 70 - 199 mg/dL Blood 09/11/2024 5:55 AM TRAVEL INFORMATION CENTER SUPERVISOR 09/11/2024 5:55 AM TRAVEL INFORMATION CENTER SUPERVISOR Alexey Zhong MD LAB POCT ORDERABLES - DEVICE Fi nal Result Performing Organization Address City/[facility]/ZIP Co de Phone Number [facility]RIOS ([place]) 1 [facility] [place] [address] * POCT glucose (09/11/2024 4:47 AM TRAVEL INFORMATION CENTER SUPERVISOR) Pathologist [facility] Glucose, POC 196 70 - 199 mg/dL Blood 09/11/2024 4:47 AM TRAVEL INFORMATION CENTER SUPERVISOR 09/11/2024 4:47 AM TRAVEL INFORMATION CENTER SUPERVISOR Alexey Zhong MD LAB POCT ORDERABLES - DEVICE Fi nal Result Performing Organization Address [facility] de Phone Number [facility] BARRIOS ([place]) 1 [facility] [place] [address] * eGFR (09/11/2024 3:48 AM TRAVEL INFORMATION CENTER SUPERVISOR) [facility] eGFR >90 >=60 mL/min/1. 73 m2 [...] last reviewed 2021. Blood 09/11/2024 3:48 AM TRAVEL INFORMATION CENTER SUPERVISOR 09/11/2024 3:56 AM TRAVEL INFORMATION CENTER SUPERVISOR us Alexey Zhong MD LAB BLOOD ORDERABLES Final Resu lt [facility] ([place]) 1 [facility] Department [place] [address] * (ABNORMAL) Differential, auto (09/11/2024 3:48 AM TRAVEL INFORMATION CENTER SUPERVISOR) Neutrophil abs 9.3(H) 1.5 - 6.5 K/cumm Imm gran abs 0.1 0.0 - 0.1 K/cumm [facility] ([place]) Lymphocyte abs 1.5 0.8 - 3.3 K/cumm [facility] ([place]) [...] revised on 2018. Blood 09/11/2024 3:48 AM TRAVEL INFORMATION CENTER SUPERVISOR 09/11/2024 3:56 AM TRAVEL INFORMATION CENTER SUPERVISOR us Alexey Zhong MD LAB BLOOD ORDERABLES Final Resu lt [facility] ([place]) 1 [facility] Department [place] [address] * (ABNORMAL) CBC with auto differential (09/11/2024 3:48 AM TRAVEL INFORMATION CENTER SUPERVISOR) WBC 11.9(H) 3.8 - 9.9 K/cumm Hgb [...] [facility] ([place]) Blood 09/11/2024 3:48 AM TRAVEL INFORMATION CENTER SUPERVISOR 09/11/2024 3:56 AM TRAVEL INFORMATION CENTER SUPERVISOR us Alexey Zhong MD LAB BLOOD ORDERABLES Final Resu lt [facility] ([place]) 1 [facility] Department [place] [address] * (ABNORMAL) Comprehensive metabolic panel (09/11/2024 3:48 AM TRAVEL INFORMATION CENTER SUPERVISOR) Sodium 137 135 - 145 mmol/L Potassium, [...] [facility] ([place]) Blood 09/11/2024 3:48 AM TRAVEL INFORMATION CENTER SUPERVISOR 09/11/2024 3:56 AM TRAVEL INFORMATION CENTER SUPERVISOR Chris Caraballo MD LAB BLOOD ORDERABLES Final Result [facility] ([place]) 1 [facility] [place] [address] * POCT glucose (09/11/2024 3:42 AM TRAVEL INFORMATION CENTER SUPERVISOR) Glucose, POC 147 70 - 199 mg/dL Blood 09/11/2024 3:42 AM TRAVEL INFORMATION CENTER SUPERVISOR 09/11/2024 3:42 AM TRAVEL INFORMATION CENTER SUPERVISOR Alexey Zhong MD LAB POCT ORDERABLES - DEVICE Fi nal Result Performing Organization Address City/[facility]/ZIP Co de Phone Number [facility] BARRIOS ([place]) 1 [facility] [place] [address] * POCT glucose (09/11/2024 2:33 AM TRAVEL INFORMATION CENTER SUPERVISOR) Glucose, POC 131 70 - 199 mg/dL Blood 09/11/2024 2:33 AM TRAVEL INFORMATION CENTER SUPERVISOR 09/11/2024 2:33 AM TRAVEL INFORMATION CENTER SUPERVISOR Alexey Zhong MD LAB POCT ORDERABLES - DEVICE Fi nal Result Performing Organization Address City/[facility]/ZIP Co de Phone Number [facility] BARRIOS ([place]) 1 [facility] [place] [address] * POCT glucose (09/11/2024 1:20 AM TRAVEL INFORMATION CENTER SUPERVISOR) Glucose, POC 117 70 - 199 mg/dL Blood 09/11/2024 1:20 AM TRAVEL INFORMATION CENTER SUPERVISOR 09/11/2024 1:20 AM TRAVEL INFORMATION CENTER SUPERVISOR Alexey Zhong MD LAB POCT ORDERABLES - DEVICE Fi nal Result [facility]RIOS ([place]) 1 [facility] Department [place] [address] * eGFR (09/11/2024 12:37 AM TRAVEL INFORMATION CENTER SUPERVISOR) Pathologist [facility] eGFR >90 >=60 mL/min/1. 73 m2 Comment: [...] reviewed 2021. Blood 09/11/2024 12:3 7 AM TRAVEL INFORMATION CENTER SUPERVISOR 09/11/2024 12:42 AM TRAVEL INFORMATION CENTER SUPERVISOR us Alexey Zhong MD LAB BLOOD ORDERABLES Final Resu lt [facility] BARRIOS ([place]) 1 [facility] Department [place] [address] * (ABNORMAL) Basic metabolic panel (09/11/2024 12:37 AM TRAVEL INFORMATION CENTER SUPERVISOR) Sodium 138 135 - 145 mmol/L Potassium, pl 3.2(L) 3.3 - 4.9 mmol/L [facility] Chloride 102 97 - 110 mmol/L [facility] ([place]) CO2 28 22 - 32 mmol/L [facility] ([place]) Anion gap 8 2 - 15 mmol/L [facility] ([place]) BUN 14 6 - 25 mg/dL [facility] ([place]) Creatinine 0.67(L) 0.80 - 1.30 mg/dL [facility] ([place]) Glucose 128 70 - 199 mg/dL [facility] ([place]) Comment: Interpretive Data Fasting [...] 2022. Calcium 8.7 8.5 - 10.3 mg/dL [facility] ([place]) Blood 09/11/2024 12:3 7 AM TRAVEL INFORMATION CENTER SUPERVISOR 09/11/2024 12:42 AM TRAVEL INFORMATION CENTER SUPERVISOR us Alexey Zhong MD LAB BLOOD ORDERABLES Final Resu lt [facility] BARRIOS ([place]) 1 [facility] [place] [address] * POCT glucose (09/11/2024 12:17 AM TRAVEL INFORMATION CENTER SUPERVISOR) Glucose, POC 105 70 - 199 mg/dL Blood 09/11/2024 12:1 7 AM TRAVEL INFORMATION CENTER SUPERVISOR 09/11/2024 12:17 AM TRAVEL INFORMATION CENTER SUPERVISOR us Alexey Zhong MD LAB POCT ORDERABLES - DEVICE Fi nal Result [facility] BARRIOS ([place]) 1 [facility] [place] [address] * POCT glucose (09/10/2024 11:10 PM TRAVEL INFORMATION CENTER SUPERVISOR) Glucose, POC 137 70 - 199 mg/dL Blood 09/10/2024 11:1 0 PM TRAVEL INFORMATION CENTER SUPERVISOR 09/10/2024 11:10 PM TRAVEL INFORMATION CENTER SUPERVISOR us Alexey Zhong MD LAB POCT ORDERABLES - DEVICE Fi nal Result Performing Organization Address City/[facility]/ZIP Co de Phone Number [facility] BARRIOS ([place]) 1 [facility] [place] [address] * POCT glucose (09/10/2024 10:05 PM TRAVEL INFORMATION CENTER SUPERVISOR) Glucose, POC 179 70 - 199 mg/dL Blood 09/10/2024 10:0 5 PM TRAVEL INFORMATION CENTER SUPERVISOR 09/10/2024 10:05 PM TRAVEL INFORMATION CENTER SUPERVISOR us Alexey Zhong MD LAB POCT ORDERABLES - DEVICE Fi nal Result [facility] BARRIOS ([place]) 1 [facility] [place] [address] * POCT glucose (09/10/2024 9:02 PM TRAVEL INFORMATION CENTER SUPERVISOR) Glucose, POC 171 70 - 199 mg/dL Blood 09/10/2024 9:02 PM TRAVEL INFORMATION CENTER SUPERVISOR 09/10/2024 9:02 PM TRAVEL INFORMATION CENTER SUPERVISOR us Alexey Zhong MD LAB POCT ORDERABLES - DEVICE Fi nal Result [facility] ([place]) 1 [facility] [place] [address] * POCT glucose (09/10/2024 8:00 PM TRAVEL INFORMATION CENTER SUPERVISOR) Glucose, POC 152 70 - 199 mg/dL Blood 09/10/2024 8:00 PM TRAVEL INFORMATION CENTER SUPERVISOR 09/10/2024 8:00 PM TRAVEL INFORMATION CENTER SUPERVISOR Alexey Zhong MD LAB POCT ORDERABLES - DEVICE Fi nal Result Performing Organization Address [facility]/ZIP Co de Phone Number [facility] BARRIOS ([place]) 1 [facility] [place] [address] * POCT glucose (09/10/2024 6:45 PM TRAVEL INFORMATION CENTER SUPERVISOR) Glucose, POC 157 70 - 199 mg/dL Blood 09/10/2024 6:45 PM TRAVEL INFORMATION CENTER SUPERVISOR 09/10/2024 6:45 PM TRAVEL INFORMATION CENTER SUPERVISOR Alexey Zhong MD LAB POCT ORDERABLES - DEVICE Fi nal Result Performing Organization Address [facility] Co de Phone Number [facility] BARRIOS ([place]) 1 [facility] [place] [address] * eGFR (09/10/2024 6:43 PM TRAVEL INFORMATION CENTER SUPERVISOR) eGFR >90 >=60 mL/min/1. 73 m2 Comment: [...] last reviewed 2021. Blood 09/10/2024 6:43 PM TRAVEL INFORMATION CENTER SUPERVISOR 09/10/2024 7:20 PM TRAVEL INFORMATION CENTER SUPERVISOR us Alexey Zhong MD LAB BLOOD ORDERABLES Final Resu lt [facility] ([place]) 1 [facility] Department [place] [address] * (ABNORMAL) Basic metabolic panel (09/10/2024 6:43 PM TRAVEL INFORMATION CENTER SUPERVISOR) Sodium 137 135 - 145 mmol/L Potassium, pl 3.1(L) 3.3 - 4.9 mmol/L [facility] Chloride 101 97 - 110 mmol/L [facility]) CO2 25 22 - 32 mmol/L [facility] ([place]) Anion gap 11 2 - 15 mmol/L [facility] BUN 17 6 - 25 mg/dL [facility] Creatinine 0.73(L) 0.80 - 1.30 mg/dL [facility] Glucose 179 70 - 199 mg/dL [facility] Comment: Interpretive Data Fasting glucose [...] 10.3 mg/dL [facility] ([place]) Blood 09/10/2024 6:43 PM TRAVEL INFORMATION CENTER SUPERVISOR 09/10/2024 7:20 PM TRAVEL INFORMATION CENTER SUPERVISOR us Alexey Zhong MD LAB BLOOD ORDERABLES Final Resu lt [facility] ([place]) 1 [facility] [place] [address] * POCT glucose (09/10/2024 5:44 PM TRAVEL INFORMATION CENTER SUPERVISOR) Glucose, POC 168 70 - 199 mg/dL Blood 09/10/2024 5:44 PM TRAVEL INFORMATION CENTER SUPERVISOR 09/10/2024 5:44 PM TRAVEL INFORMATION CENTER SUPERVISOR us Alexey Zhong MD LAB POCT ORDERABLES - DEVICE Fi nal Result Performing Organization Address [facility] Co de Phone Number [facility] BARRI[facility] ([place]) 1 [facility] [place] [address] * (ABNORMAL) POCT glucose (09/10/2024 4:43 PM TRAVEL INFORMATION CENTER SUPERVISOR) Glucose, POC 212(H) 70 - 199 mg/dL Blood 09/10/2024 4:43 PM TRAVEL INFORMATION CENTER SUPERVISOR 09/10/2024 4:43 PM TRAVEL INFORMATION CENTER SUPERVISOR us Alexey Zhong MD LAB POCT ORDERABLES - DEVICE Fi nal Result Performing Organization Address City/[facility]/ZIP Co de Phone Number A[facility] BARRI[facility] ([place]) 1 [facility] [place] [address] * (ABNORMAL) POCT glucose (09/10/2024 3:45 PM TRAVEL INFORMATION CENTER SUPERVISOR) Glucose, POC 257(H) 70 - 199 mg/dL Blood 09/10/2024 3:45 PM TRAVEL INFORMATION CENTER SUPERVISOR 09/10/2024 3:45 PM TRAVEL INFORMATION CENTER SUPERVISOR us Alexey Zhong MD LAB POCT ORDERABLES - DEVICE Fi nal Result Performing Organization Address City/[facility] Co de Phone Number A[facility] BARRIOS ([place]) 1 [facility] [place] [address] * (ABNORMAL) POCT glucose (09/10/2024 2:47 PM TRAVEL INFORMATION CENTER SUPERVISOR) Glucose, POC 247(H) 70 - 199 mg/dL Blood 09/10/2024 2:47 PM TRAVEL INFORMATION CENTER SUPERVISOR 09/10/2024 2:47 PM TRAVEL INFORMATION CENTER SUPERVISOR us Alexey Zhong MD LAB POCT ORDERABLES - DEVICE Fi nal Result Performing Organization Address [facility] de Phone Number ADELITA BARRIOS ([place]) 1 [facility] [place] [address] * (ABNORMAL) POCT glucose (09/10/2024 1:48 PM TRAVEL INFORMATION CENTER SUPERVISOR) Glucose, POC 279(H) 70 - 199 mg/dL Blood 09/10/2024 1:48 PM TRAVEL INFORMATION CENTER SUPERVISOR 09/10/2024 1:48 PM TRAVEL INFORMATION CENTER SUPERVISOR us Alexey Zhong MD LAB POCT ORDERABLES - DEVICE Fi nal Result Performing Organization Address [facility] Co de Phone Number [facility] BARRI[facility] ([place]) 1 [facility] [place] [address] * (ABNORMAL) POCT glucose (09/10/2024 1:08 PM TRAVEL INFORMATION CENTER SUPERVISOR) Glucose, POC 283(H) 70 - 199 mg/dL Blood 09/10/2024 1:08 PM TRAVEL INFORMATION CENTER SUPERVISOR 09/10/2024 1:08 PM TRAVEL INFORMATION CENTER SUPERVISOR us Alexey Zhong MD LAB POCT ORDERABLES - DEVICE Fi nal Result Performing Organization Address City/[facility] Co de Phone Number [facility] BARRIOS ([place]) 1 [facility] Department [place] [address] * eGFR (09/10/2024 12:36 PM TRAVEL INFORMATION CENTER SUPERVISOR) Pathologist [facility] eGFR >90 >=60 mL/min/1. 73 m2 Comment: [...] reviewed 2021. Blood 09/10/2024 12:3 6 PM TRAVEL INFORMATION CENTER SUPERVISOR 09/10/2024 12:40 PM TRAVEL INFORMATION CENTER SUPERVISOR us Alexey Zhong MD LAB BLOOD ORDERABLES Final Resu lt [facility] ([place]) 1 [facility] Department [place] [address] * (ABNORMAL) Basic metabolic panel (09/10/2024 12:36 PM TRAVEL INFORMATION CENTER SUPERVISOR) [facility] Sodium 138 135 - 145 mmol/L Potassium, pl 3.7 3.3 - 4.9 mmol/L [facility] ([place]) Chloride 100 97 - 110 mmol/L [facility] ([place]) CO2 18(L) 22 - 32 mmol/L [facility] ([place]) Anion gap 20(H) 2 - 15 mmol/L [facility] ([place]) BUN 25 6 - 25 mg/dL [facility] ([place]) Creatinine 0.92 0.80 - 1.30 mg/dL [facility] ([place]) Glucose 265(H) 70 - 199 mg/dL [facility] ([place]) [...] 2022. Calcium 8.5 8.5 - 10.3 mg/dL [facility] ([place]) Blood 09/10/2024 12:3 6 PM TRAVEL INFORMATION CENTER SUPERVISOR 09/10/2024 12:40 PM TRAVEL INFORMATION CENTER SUPERVISOR Alexey Zhong MD LAB BLOOD ORDERABLES Final Resu lt Performing Organization Address City/[facility]/ZIP Co de Phone Number [facility]RI[facility] ([place]) 1 [facility] [employer] [place] [address] * (ABNORMAL) POCT glucose (09/10/2024 11:41 AM TRAVEL INFORMATION CENTER SUPERVISOR) Glucose, POC 225(H) 70 - 199 mg/dL Blood 09/10/2024 11:4 1 AM TRAVEL INFORMATION CENTER SUPERVISOR 09/10/2024 11:41 AM TRAVEL INFORMATION CENTER SUPERVISOR Alexey Zhong MD LAB POCT ORDERABLES - DEVICE Fi nal Result Performing Organization Address City/[facility]/ZIP Co de Phone Number A[facility]RI[facility] ([place]) 1 [facility] Department [place] [address] * CT Abdomen Pelvis WO Contrast (09/10/2024 10:10 AM TRAVEL INFORMATION CENTER SUPERVISOR) Anatomical Region Laterality Modality Body N/A Computed Tomogra phy 09/10/2024 1:03 PM TRAVEL INFORMATION CENTER SUPERVISOR Narrative 09/10/2024 1:42 PM TRAVEL INFORMATION CENTER SUPERVISOR EXAM DESCRIPTION: ?? CT ABDOMEN PELVIS WO [...] PM T: ??09/10/2024 1:42 PM Report ID: [id number] Reading Location: ??[id number] Procedure Note John Benito MD - 09/10/2024 [...] Electronically signed by John Benito M.D. AG: [place] Report ID: [id number] Reading Location: [place] [address] us Jason Solitario MD IMG CT PROCEDURES F inal Result * (ABNORMAL) POCT glucose (09/10/2024 9:49 AM TRAVEL INFORMATION CENTER SUPERVISOR) Glucose, POC 215(H) 70 - 199 mg/dL Blood 09/10/2024 9:49 AM TRAVEL INFORMATION CENTER SUPERVISOR 09/10/2024 9:49 AM TRAVEL INFORMATION CENTER SUPERVISOR Alexey Zhong MD LAB POCT ORDERABLES - DEVICE Fi nal Result Performing Organization Address [facility] Co de Phone Number ADELITA [facility] ([facility]) [address] [place] [id number] * (ABNORMAL) MRSA Only (Staphylococcus aureus) PCR Nasal (09/10/2024 9:06 AM TRAVEL INFORMATION CENTER SUPERVISOR) [facility] PCR Scrn, Methicillin resistant Staphylococcus aureus (MRSA) Detected( A) Not Detected Comment: Interpretive Data Testing performed using Nucleic Acid Amplification with the PLDT Xpert MRSA NxG Assay. This assay detects target DNA from mecA, mecC and the SCCmec insertion site of Staphylococcus aureus using Real-Time PCR and has been cleared by the FDA. Performance characteristics have been verified by the [facility]. Current Interpretive Data was last revised on 2023 Nasal 09/10/2024 9:06 AM TRAVEL INFORMATION CENTER SUPERVISOR 09/10/2024 9:20 AM TRAVEL INFORMATION CENTER SUPERVISOR Jason Solitario MD LAB MICROBIOLOGY - GENERAL ORDERABLES Final Result Performing Organization Address [facility] Co de Phone Number [facility] ([facility]) [address] [place] [address] [place] [address] * (ABNORMAL) POCT glucose (09/10/2024 8:47 AM TRAVEL INFORMATION CENTER SUPERVISOR) Glucose, POC 219(H) 70 - 199 mg/dL Blood 09/10/2024 8:47 AM TRAVEL INFORMATION CENTER SUPERVISOR 09/10/2024 8:47 AM TRAVEL INFORMATION CENTER SUPERVISOR Alexey Zhong MD LAB POCT ORDERABLES - DEVICE Fi nal Result Performing Organization Address [facility]/ZIP Co de Phone Number ADELITA [facility]RI[facility] ([place]) [address] [place] [address] * Lactate (09/10/2024 8:07 AM TRAVEL INFORMATION CENTER SUPERVISOR) Lactate 1.6 0.7 - 2.0 mmol/L Blood 09/10/2024 8:07 AM TRAVEL INFORMATION CENTER SUPERVISOR 09/10/2024 8:12 AM TRAVEL INFORMATION CENTER SUPERVISOR us Jason Solitario MD LAB BLOOD ORDERABLE S Final Result Performing Organization Address [facility]/ZIP Co de Phone Number ADELITA [facility] ([facility]) 1 [facility] [place] [address] * (ABNORMAL) Lipase (09/10/2024 8:07 AM TRAVEL INFORMATION CENTER SUPERVISOR) Lipase 816(H) 10 - 99 Units/L Blood 09/10/2024 8:07 AM TRAVEL INFORMATION CENTER SUPERVISOR 09/10/2024 8:12 AM TRAVEL INFORMATION CENTER SUPERVISOR us Alexey Zhong MD LAB BLOOD ORDERABLES Final Resu lt Performing Organization Address [facility] Co de Phone Number ADELITA [facility]RI[facility] ([facility]) 1 [facility] [place] [address] * (ABNORMAL) Cortisol (09/10/2024 8:07 AM TRAVEL INFORMATION CENTER SUPERVISOR) Cortisol 23.7(H) 4.8 - 19.5 mcg/dl Comment: Interpretive Data Normal Range: ??4.8 - 19.5 mcg/dL; ??Evening: ??Half of morning value. ?? This analyte undergoes marked diurnal variation. ??Ranges indicated apply to morning specimens. ?? Current interpretive data was last revised 2018. Testing performed by: [facility], [address] [place] [address], [place]., [address] Blood 09/10/2024 8:07 AM TRAVEL INFORMATION CENTER SUPERVISOR 09/10/2024 1:22 PM TRAVEL INFORMATION CENTER SUPERVISOR us Alexey Zhong MD LAB BLOOD ORDERABLES Final Resu lt A[facility]ITA [facility] ([facility]) 1 [facility] [place] [address] * (ABNORMAL) Amylase (09/10/2024 8:07 AM TRAVEL INFORMATION CENTER SUPERVISOR) Amylase 899(H) 30 - 99 Units/L Blood 09/10/2024 8:07 AM TRAVEL INFORMATION CENTER SUPERVISOR 09/10/2024 8:12 AM TRAVEL INFORMATION CENTER SUPERVISOR us Alexey Zhong MD LAB BLOOD ORDERABLES Final Resu lt Performing Organization Address [facility]/ZIP Co de Phone Number ADELITA [facility] ([facility]) 1 [facility] [place] [address] * (ABNORMAL) POCT glucose (09/10/2024 7:46 AM TRAVEL INFORMATION CENTER SUPERVISOR) Glucose, POC 263(H) 70 - 199 mg/dL Blood 09/10/2024 7:46 AM TRAVEL INFORMATION CENTER SUPERVISOR 09/10/2024 7:46 AM TRAVEL INFORMATION CENTER SUPERVISOR us Alexey Zhong MD LAB POCT ORDERABLES - DEVICE Fi nal Result Performing Organization Address [facility]/ZIP Co de Phone Number [facility] ([facility]) 1 [facility] [place] [address] * (ABNORMAL) POCT glucose (09/10/2024 6:41 AM TRAVEL INFORMATION CENTER SUPERVISOR) Glucose, POC 256(H) 70 - 199 mg/dL Blood 09/10/2024 6:41 AM TRAVEL INFORMATION CENTER SUPERVISOR 09/10/2024 6:41 AM TRAVEL INFORMATION CENTER SUPERVISOR us Alexey Zhong MD LAB POCT ORDERABLES - DEVICE Fi nal Result [facility] ([facility]) 1 [facility] [place] [address] * (ABNORMAL) POCT glucose (09/10/2024 5:39 AM TRAVEL INFORMATION CENTER SUPERVISOR) Glucose, POC 258(H) 70 - 199 mg/dL Blood 09/10/2024 5:39 AM TRAVEL INFORMATION CENTER SUPERVISOR 09/10/2024 5:39 AM TRAVEL INFORMATION CENTER SUPERVISOR us Alexey Zhong MD LAB POCT ORDERABLES - DEVICE Fi nal Result Performing Organization Address [facility]/ZIP Co de Phone Number ADELITA BARRIOS ([facility]) 1 [facility] [place] [address] * (ABNORMAL) POCT glucose (09/10/2024 4:40 AM TRAVEL INFORMATION CENTER SUPERVISOR) Glucose, POC 359(H) 70 - 199 mg/dL Blood 09/10/2024 4:40 AM TRAVEL INFORMATION CENTER SUPERVISOR 09/10/2024 4:40 AM TRAVEL INFORMATION CENTER SUPERVISOR us Alexey Zhong MD LAB POCT ORDERABLES - DEVICE Fi nal Result Performing Organization Address [facility] Co de Phone Number [facility] ([facility]) 1 [facility] [place] [address] * (ABNORMAL) POCT glucose (09/10/2024 3:35 AM TRAVEL INFORMATION CENTER SUPERVISOR) Glucose, POC 400(H) 70 - 199 mg/dL Blood 09/10/2024 3:35 AM TRAVEL INFORMATION CENTER SUPERVISOR 09/10/2024 3:35 AM TRAVEL INFORMATION CENTER SUPERVISOR us Alexey Zhong MD LAB POCT ORDERABLES - DEVICE Fi nal Result Performing Organization Address [facility] Co de Phone Number [facility] ([facility]) 1 [facility] [place] [address] * Troponin T high-sensitivity 6-hour (09/10/2024 2:36 AM TRAVEL INFORMATION CENTER SUPERVISOR) Trop T hs 21 <=22 ng/L Comment: Interpretive Data For further hscTnT resources including the diagnostic algorithm and an aid in interpretation, copy and paste this link: https://nrl.testcatalog.org/show/hsTrop Current Interpretive Data last revised 2020. Trop T hs delta -3 ng/L [facility] ([place]) Trop T hs interp Insignificant [facility] ([place]) Blood 09/10/2024 2:36 AM TRAVEL INFORMATION CENTER SUPERVISOR 09/10/2024 2:50 AM TRAVEL INFORMATION CENTER SUPERVISOR Ortiz Treviño MD LAB BLOOD ORDERABLES Final R esult A[facility]ITA [facility] ([facility]) 1 [facility] [place] [address] * (ABNORMAL) Sepsis Lactate w/ Reflex (09/10/2024 2:36 AM TRAVEL INFORMATION CENTER SUPERVISOR) Sepsis Lactate 2.4(H) 0.7 - 2.0 mmol/L Blood 09/10/2024 2:36 AM TRAVEL INFORMATION CENTER SUPERVISOR 09/10/2024 2:50 AM TRAVEL INFORMATION CENTER SUPERVISOR Ortiz Treviño MD LAB BLOOD ORDERABLES Final R [facility] Performing Organization Address [facility] Co de Phone Number ADELITA BARRIOS ([facility]) 1 [facility] [place] [address] * (ABNORMAL) eGFR (09/10/2024 2:36 AM TRAVEL INFORMATION CENTER SUPERVISOR) eGFR 52(L) >=60 mL/min/1. 73 m2 Comment: [...] Inclusion of Race in Diagnosing Kidney Disease, ANIC[employer]Kate 2020). The CKD-EPI equation should not be used for patients with unstable renal function and has not been validated in children and those over 70. Current interpretive data was last reviewed 2021. Blood 09/10/2024 2:36 AM TRAVEL INFORMATION CENTER SUPERVISOR 09/10/2024 2:50 AM TRAVEL INFORMATION CENTER SUPERVISOR us Juanpablo Ramirez MD LAB BLOOD ORDERABLES Final Resul t [facility] ([facility]) 1 [facility] Department [place] [address] * (ABNORMAL) Basic metabolic panel (09/10/2024 2:36 AM TRAVEL INFORMATION CENTER SUPERVISOR) Sodium 140 135 - 145 mmol/L Potassium, pl 4.1 3.3 - 4.9 mmol/L [facility] ([place]) Chloride 98 97 - 110 mmol/L [facility] ([place]) CO2 12(L) 22 - 32 mmol/L [facility] ([place]) Anion gap 30(H) 2 - 15 mmol/L [facility] ([place]) BUN 37(H) 6 - 25 mg/dL [facility] ([place]) Creatinine 1.55(H) 0.80 - 1.30 mg/dL [facility] ([place]) Glucose 516(C) 70 - 199 mg/dL [facility] ([place]) Comment: Critical Result called by [email or web address] at 2024-09-10 03:30:57. Result Read Back by [...] 2022. Calcium 7.9(L) 8.5 - 10.3 mg/dL ADELITA [facility]RI[facility] ([place]) Blood 09/10/2024 2:36 AM TRAVEL INFORMATION CENTER SUPERVISOR 09/10/2024 2:50 AM TRAVEL INFORMATION CENTER SUPERVISOR Juanpablo Ramirez MD LAB BLOOD ORDERABLES Final Resul t Performing Organization Address [facility] de Phone Number ADELITA BARRIOS ([facility]) 1 [facility] [place] [address] * (ABNORMAL) POCT glucose (09/10/2024 2:30 AM TRAVEL INFORMATION CENTER SUPERVISOR) Glucose, POC 463(C) 70 - 199 mg/dL Comment:Glu2: Blood 09/10/2024 2:30 AM TRAVEL INFORMATION CENTER SUPERVISOR 09/10/2024 2:30 AM TRAVEL INFORMATION CENTER SUPERVISOR Alexey Zhong MD LAB POCT ORDERABLES - DEVICE Fi nal Result Performing Organization Address [facility] Co de Phone Number ADELITA BARRIOS ([facility]) 1 [facility] [place] [address] * (ABNORMAL) POCT glucose (09/10/2024 1:33 AM TRAVEL INFORMATION CENTER SUPERVISOR) Glucose, POC 534(C) 70 - 199 mg/dL Comment:Glu2: Blood 09/10/2024 1:33 AM TRAVEL INFORMATION CENTER SUPERVISOR 09/10/2024 1:33 AM TRAVEL INFORMATION CENTER SUPERVISOR Alexey Zhong MD LAB POCT ORDERABLES - DEVICE Fi nal Result Performing Organization Address [facility] Co de Phone Number ADELITA A[facility]RIOS ([facility]) 1 [facility] [place] [address] * Blood culture Blood Peripheral (09/10/2024 1:08 AM TRAVEL INFORMATION CENTER SUPERVISOR) Report Final Report: No growth Comment:Testing performed by : [facility], 1 [facility], [place]., [address] Blood (Peripheral) 09/10/2024 1:08 AM TRAVEL INFORMATION CENTER SUPERVISOR 09/10/2024 6:35 AM TRAVEL INFORMATION CENTER SUPERVISOR Narrative ADELITA DENIS ([facility]) - 09/14/2024 7:00 AM TRAVEL INFORMATION CENTER SUPERVISOR From a different site than #1. Draw [...] organism identification may be performed using the [employer] Gram-Positive Blood Culture Assay. This assay detects microbial DNA in positive blood culture broth via hybridization of target DNA to capture oligonucleotides on a microarray. This assay has been cleared by the [place] Food and Drug Administration and its performance characteristics have been verified by the [facility]. 5. ?For questions about this culture, contact the Microbiology Laboratory at [phone]. Interpretive data was last revised on 2020. Ortiz Treviño MD LAB MICROBIOLOGY - GENERAL O RDERABLES Final Result ADELITA BARRIOS ([place]) 1 [facility] Department [place] [address] * Blood culture Blood Peripheral (09/10/2024 1:08 AM TRAVEL INFORMATION CENTER SUPERVISOR) Report Final Report: No growth Comment:Testing performed by : [facility], 1 [place]., [address] Blood (Peripheral) 09/10/2024 1:08 AM TRAVEL INFORMATION CENTER SUPERVISOR 09/10/2024 6:35 AM TRAVEL INFORMATION CENTER SUPERVISOR Narrative ADELITA DENIS ([facility]) - 09/14/2024 7:00 AM TRAVEL INFORMATION CENTER SUPERVISOR Draw Blood cultures before administration of Antibiotics [...] organism identification may be performed using the [employer] Gram-Positive Blood Culture Assay. This assay detects microbial DNA in positive blood culture broth via hybridization of target DNA to capture oligonucleotides on a microarray. This assay has been cleared by the [place] Food and Drug Administration and its performance characteristics have been verified by the [facility]. 5. ?For questions about this culture, contact the Microbiology Laboratory at [phone]. Interpretive data was last revised on 2020. Ortiz Treviño MD LAB MICROBIOLOGY - GENERAL O RDERABLES Final Result ADELITA DENIS ([facility]) [address] [place] [address] * TSH (09/10/2024 1:08 AM TRAVEL INFORMATION CENTER SUPERVISOR) Thyroid Stimulating Hormone 0.54 0.30 - 4.20 mcIUnit/mL Blood 09/10/2024 1:08 AM TRAVEL INFORMATION CENTER SUPERVISOR 09/10/2024 1:23 AM TRAVEL INFORMATION CENTER SUPERVISOR Jason Solitario MD LAB BLOOD ORDERABLE S Final Result Performing Organization Address [facility] Co de Phone Number [facility] ([facility]) 1 [place] [address] * Creatine kinase (CK), total (09/10/2024 1:08 AM TRAVEL INFORMATION CENTER SUPERVISOR) CK 111 40 - 300 Units/L Blood 09/10/2024 1:08 AM TRAVEL INFORMATION CENTER SUPERVISOR 09/10/2024 1:23 AM TRAVEL INFORMATION CENTER SUPERVISOR us Jason Solitario MD LAB BLOOD ORDERABLE S Final Result Performing Organization Address [facility] Co de Phone Number [facility] ([facility]) [address] [place] [address] * Critical Care (09/10/2024 12:51 AM TRAVEL INFORMATION CENTER SUPERVISOR) Narrative Jason Solitario MD - 09/10/2024 12:51 AM TRAVEL INFORMATION CENTER SUPERVISOR Jason Solitario MD ? 09/10/2024 12:53 AM [...] plan with the ICU team and other medical/contact center consultant staff, making frequent assessments and decisions [...] Troponin T high-sensitivity 4-hour (09/10/2024 12:27 AM TRAVEL INFORMATION CENTER SUPERVISOR) Trop T hs 23(H) <=22 ng/L Comment: Interpretive Data For further hscTnT resources including the diagnostic algorithm and an aid in interpretation, copy and paste this link: https://nrl.testcatalog.org/show/hsTrop Current Interpretive Data last revised 2020. Trop T hs delta -1 ng/L [facility] ([place]) Trop T hs interp Insignificant [facility] ([place]) Blood 09/10/2024 12:2 7 AM TRAVEL INFORMATION CENTER SUPERVISOR 09/10/2024 12:36 AM TRAVEL INFORMATION CENTER SUPERVISOR us Ortiz Treviño MD LAB BLOOD ORDERABLES Final R esult ADELITA [facility]RIOS ([facility]) 1 [facility] Department [place] [address] * (ABNORMAL) Glucose, whole blood (09/10/2024 12:27 AM TRAVEL INFORMATION CENTER SUPERVISOR) Glucose, bld 679(C) 70 - 199 mg/dL Comment:Critical result call ed to and read back by Jonah Rankin_ (BIOMATERIALS ENGINEER) on 09/10/2024 00:33:44 CST_ to Sera Burroughs. Blood 09/10/2024 12:2 7 AM TRAVEL INFORMATION CENTER SUPERVISOR 09/10/2024 12:29 AM TRAVEL INFORMATION CENTER SUPERVISOR us Alexey Zhong MD LAB BLOOD ORDERABLES Final Resu lt ADELITA [facility]OS ([facility]) [address] [place] [address] [place] [address] * Potassium (09/10/2024 12:27 AM TRAVEL INFORMATION CENTER SUPERVISOR) Potassium, pl 4.1 3.3 - 4.9 mmol/L Blood 09/10/2024 12:2 7 AM TRAVEL INFORMATION CENTER SUPERVISOR 09/10/2024 12:36 AM TRAVEL INFORMATION CENTER SUPERVISOR us Juanpablo Ramirez MD LAB BLOOD ORDERABLES Final Resul t ADELITA [facility] ([facility]) [address] [place] [address] [place] [address] * (ABNORMAL) POCT glucose (09/09/2024 11:45 PM TRAVEL INFORMATION CENTER SUPERVISOR) Glucose, POC >600(C) 70 - 199 mg/dL Comment:Glu2: Blood 09/09/2024 11:4 5 PM TRAVEL INFORMATION CENTER SUPERVISOR 09/09/2024 11:45 PM TRAVEL INFORMATION CENTER SUPERVISOR us Alexey Zhong MD LAB POCT ORDERABLES - DEVICE Fi nal Result [facility] ([facility]) 1 [facility] [place] [address] * (ABNORMAL) Troponin T high-sensitivity 2-hour (09/09/2024 11:17 PM TRAVEL INFORMATION CENTER SUPERVISOR) [facility] Trop T hs 24(H) <=22 ng/L Comment: Interpretive Data For further hscTnT resources including the diagnostic algorithm and an aid in interpretation, copy and paste this link: https://nrl.testcatalog.org/show/hsTrop Current Interpretive Data last revised 2020. Trop T hs delta See Comment ng/L [facility] ([facility]) Comment:Inappropriate collec tion time to report a delta. Trop T hs pct delta See Comment % CERTIKI [facility] ([facility]) Comment:Inappropriate collec tion time to report a delta. Trop T hs interp See Comment C LELIA [facility] ([facility]) Comment:Inappropriate collec tion time to report a delta. Blood 09/09/2024 11:1 7 PM TRAVEL INFORMATION CENTER SUPERVISOR 09/09/2024 11:20 PM TRAVEL INFORMATION CENTER SUPERVISOR us Alexey Zhong MD LAB BLOOD ORDERABLES Final Resu lt ADELITA BARRIOS ([facility]) 1 [facility] Department [place] [address] * (ABNORMAL) Sepsis Lactate w/ Reflex (09/09/2024 11:17 PM TRAVEL INFORMATION CENTER SUPERVISOR) [facility] Sepsis Lactate 4.8(C) 0.7 - 2.0 mmol/L Comment:Critical result call ed to and read back by Jonah Rankin (BIOMATERIALS ENGINEER) on 09/09/2024 23:25:09 CST_ to Sera Burroughs. Blood 09/09/2024 11:1 7 PM TRAVEL INFORMATION CENTER SUPERVISOR 09/09/2024 11:20 PM TRAVEL INFORMATION CENTER SUPERVISOR us Ortiz Treviño MD LAB BLOOD ORDERABLES Final R esult ADELITA BARRI[facility] ([facility]) 1 [facility] Department [place] [address] * (ABNORMAL) Potassium (09/09/2024 11:17 PM TRAVEL INFORMATION CENTER SUPERVISOR) [facility] Potassium, pl 5.1(H) 3.3 - 4.9 mmol/L Blood 09/09/2024 11:1 7 PM TRAVEL INFORMATION CENTER SUPERVISOR 09/09/2024 11:20 PM TRAVEL INFORMATION CENTER SUPERVISOR us Ortiz Treviño MD LAB BLOOD ORDERABLES Final R esult Performing Organization Address [facility] Co de Phone Number [facility] ([facility]) 1 [facility] [place] [address] * Glucose, random (09/09/2024 11:17 PM TRAVEL INFORMATION CENTER SUPERVISOR) Glucose See Comment 70 - 199 mg/dL Comment: See WB Glucose [phone] Interpretive Data Fasting glucose >/= 126 mg/dl [...] revised 2022. Blood 09/09/2024 11:1 7 PM TRAVEL INFORMATION CENTER SUPERVISOR 09/09/2024 11:20 PM TRAVEL INFORMATION CENTER SUPERVISOR us Alexey Zhong MD LAB BLOOD ORDERABLES Final Resu lt Performing Organization Address [facility] Co de Phone Number ADELITA BARRIOS ([facility]) 1 [facility] [place] [address] * (ABNORMAL) Glucose, random (09/09/2024 9:52 PM TRAVEL INFORMATION CENTER SUPERVISOR) Glucose 831(C) 70 - 199 mg/dL Comment: Critical Result called by [id number] at 2024-09-09 22:31:59. Result Read Back by [...] last revised 2022. Blood 09/09/2024 9:52 PM TRAVEL INFORMATION CENTER SUPERVISOR 09/09/2024 9:58 PM TRAVEL INFORMATION CENTER SUPERVISOR Alexey Zhong MD LAB BLOOD ORDERABLES Final Resu lt ADELITA BARRIOS ([facility]) 1 [facility] [place] [address] * (ABNORMAL) POCT glucose (09/09/2024 9:48 PM TRAVEL INFORMATION CENTER SUPERVISOR) [facility] Signature Glucose, POC >600(C) 70 - 199 mg/dL Comment:Glu2: Blood 09/09/2024 9:48 PM TRAVEL INFORMATION CENTER SUPERVISOR 09/09/2024 9:48 PM TRAVEL INFORMATION CENTER SUPERVISOR Alexey Zhong MD LAB POCT ORDERABLES - DEVICE Fi nal Result Performing Organization Address [facility] Co de Phone Number ADELITA BARRIOS ([facility]) [address] [place] [address] [place] [address] * ECG 12 lead (09/09/2024 9:37 PM TRAVEL INFORMATION CENTER SUPERVISOR) 09/09/2024 9:37 PM TRAVEL INFORMATION CENTER SUPERVISOR Narrative [facility] - 09/10/2024 10:49 PM TRAVEL INFORMATION CENTER SUPERVISOR Vent Rate: 136 bpm RR Interval: 439 msec CA Interval: 132 msec QRS Duration: 96 msec QT Interval: 292 msec QTC Interval: 372 msec P-R-T [place]: 69 - 73 - 66 degrees IMPRESSION: SINUS TACHYCARDIA MINIMAL ST DEPRESSION ??[0.025+ mV ST DEPRESSION] ABNORMAL RHYTHM ECG NO CHANGE FROM PREVIOUS TRACING NOTED Electronically Signed By: Orville Red MD Ortiz Treviño MD ECG ORDERABLES Final Result [facility] * (ABNORMAL) Urinalysis reflex to microscopic and culture Urine (09/09/2024 9:30 PM TRAVEL INFORMATION CENTER SUPERVISOR) [facility] Signature Color, ur Yellow Yellow Clarity, ur Clear Clear [facility] ([place]) Specific gravity, ur 1.011 1.003 - 1.030 [facility] ([place]) pH, urine 5.0 [facility] ([place]) Comment: Interpretive Data ? Urine pH is affected by diet, medications, systemic acid-base disturbances, and renal tubular function. ??pH may affect urinary stone formation. ??For example, urine pH below 6.0 may help reduce the tendency for calcium phosphate stones and pH greater than 6.0 may reduce the tendency for uric acid stone formation. Source: [facility] [place] Current Interpretive Data was last revised on 2017 Protein, ur ql Negative Negative [facility] ([place]) Glucose, ur ql 4+(A) Negative [facility] R [...] [facility] ([place]) Urine 09/09/2024 9:30 PM TRAVEL INFORMATION CENTER SUPERVISOR 09/09/2024 9:34 PM TRAVEL INFORMATION CENTER SUPERVISOR Ortiz Treviño MD LAB MICROBIOLOGY - GENERAL O RDERABLES Final Result [facility] ([place]) 1 [facility] Department [place] [address] * Drugs of Abuse Screen, Urine without Confirmation (09/09/2024 9:30 PM TRAVEL INFORMATION CENTER SUPERVISOR) [facility] Amphetamine, ur Not Detected CutOff 500ng/mL Comment: [...] 2023. Oxycodone, ur Not Detected CutOff 100ng/mL [facility] ([place]) Comment: Interpretive Data - Oxycodone: ??Samples containing greater than 100 ng/mL oxycodone or other cross-reacting compounds are reported as ??positive. ??False positive and false negative results are possible. Confirmatory testing required for definitive results. Current Interpretive Data was last reviewed 2023. Phencyclidine, ur Not Detected CutOff 25 ng/mL [facility] ([place]) Comment: Interpretive Data - Phencyclidine: ??Samples containing greater than 25 ng/mL phencyclidine or other cross-reacting compounds are reported as positive. ??False positive and false negative results are possible. Confirmatory testing required for definitive results. Current Interpretive Data was last reviewed 2023. Urine Creatinine 20 mg/dL [facility] ([place]) Comment: Interpretive Data Urine Creatinine: < 10 mg/dL is extremely dilute = or > 10 but < 20 mg/dL is dilute = or > 20 mg/dL is normal Current Interpretive Data was last revised on 2018. Urine 09/09/2024 9:30 PM TRAVEL INFORMATION CENTER SUPERVISOR 09/09/2024 9:47 PM TRAVEL INFORMATION CENTER SUPERVISOR Narrative [facility] ([place]) - 09/09/2024 10:03 PM TRAVEL INFORMATION CENTER SUPERVISOR Drug of Abuse screening is performed by immunoassay for medical purposes only. ??This is not to be used for Pain Management purposes. Ortiz Treviño MD LAB URINE ORDERABLES Final R esult Performing Organization Address City/[facility]/ZIP Co de Phone Number ADELITA BARRIOS ([facility]) 1 [facility] [place] [address] * (ABNORMAL) Urinalysis, microscopic only (09/09/2024 9:30 PM TRAVEL INFORMATION CENTER SUPERVISOR) WBC, ur 0-5 0 - 5 /HPF RBC, ur 11-20(A) 0 - 2 /HPF [facility] ([place]) Epithelial cells, squamous, ur 1-5 0 - 5 /HPF [facility] ([place]) Bacteria, ur 1+(A) [facility] ([place]) Mucous, ur Present(A) [facility] ([place]) Hyaline casts, ur 11-20(A) 0 - 10 /LPF [facility] ([place]) Culture Reflex Comment Reflex conditions for urine culture (WBC >10) not met. [facility] ([facility]) Urine 09/09/2024 9:30 PM TRAVEL INFORMATION CENTER SUPERVISOR 09/09/2024 9:34 PM TRAVEL INFORMATION CENTER SUPERVISOR Ortiz Treviño MD LAB URINE ORDERABLES Final R esult Performing Organization Address [facility] Co de Phone Number ADELITA BARRIOS [facility]) 1 [facility] [place] [address] * [place] CRITICAL CARE ILL/INJURED PATIENT INIT 30-74 MIN (09/09/2024 9:00 PM TRAVEL INFORMATION CENTER SUPERVISOR) Narrative Ortiz Treviño MD - 09/09/2024 9:00 PM TRAVEL INFORMATION CENTER SUPERVISOR Ortiz Treviño MD ? 09/09/2024 ??9:00 PM [...] * (ABNORMAL) POCT glucose (09/09/2024 8:49 PM TRAVEL INFORMATION CENTER SUPERVISOR) Glucose, POC >600(C) 70 - 199 mg/dL Comment:Glu2: RN/MD Notified Blood 09/09/2024 8:49 PM TRAVEL INFORMATION CENTER SUPERVISOR 09/09/2024 8:49 PM TRAVEL INFORMATION CENTER SUPERVISOR Alexey Zhong MD LAB POCT ORDERABLES - DEVICE Fi nal Result ADELITA BARRIOS ([facility]) 1 [facility] Department [place] [address] * (ABNORMAL) Blood gas, arterial (09/09/2024 8:29 PM TRAVEL INFORMATION CENTER SUPERVISOR) pH, Art 6.98(C) 7.35 - 7.45 Comment:Critical result call ed to and read back by Nima Lawler (ER Charge) on 09/09/2024 20:36:46 CST_ to Sera Celestinkristy. PCO2, Arterial See Comment 35 - 45 mmHg ADELITA [facility]RI[facility] ([place]) Comment:Value below the repo rtable range. No result given. PO2, Arterial 141(H) 83 - 108 mmHg A[facility] ([place]) HCO3 Art (Calculated) See Comment 20 - 30 mmol/L ADELITA [facility] ([place]) Comment:No result given. BE, art See Comment mmol/L ADELITA A ([place]) Comment: No result given. Interpretive Data No Reference Range Established Current Interpretive Data was last revised on 2017 O2 Sat Art (Measured) 98(H) 90 - 95 % ADELITA BARRI[facility] ([place]) Blood 09/09/2024 8:29 PM TRAVEL INFORMATION CENTER SUPERVISOR 09/09/2024 8:32 PM TRAVEL INFORMATION CENTER SUPERVISOR us Ortiz Treviño MD LAB BLOOD ORDERABLES Final R esult ADELITA BARRIOS ([facility]) 1 [facility] [place] [address] * (ABNORMAL) Troponin T high-sensitivity series (baseline, 2hr, 4hr, 6hr) (09/09/2024 8:07 PM TRAVEL INFORMATION CENTER SUPERVISOR) Trop T hs 24(H) <=22 ng/L Comment: Interpretive Data For further hscTnT resources including the diagnostic algorithm and an aid in interpretation, copy and paste this link: https://nrl.testcatalog.org/show/hsTrop Current Interpretive Data last revised 2020. Blood 09/09/2024 8:07 PM TRAVEL INFORMATION CENTER SUPERVISOR 09/09/2024 8:11 PM TRAVEL INFORMATION CENTER SUPERVISOR us Ortiz Treviño MD LAB BLOOD ORDERABLES Final R esult Performing Organization Address City/[facility]/ZIP Co de Phone Number ADELITA BARRIOS ([facility]) 1 [facility] [place] [address] * (ABNORMAL) Sepsis Lactate w/ Reflex (09/09/2024 8:07 PM TRAVEL INFORMATION CENTER SUPERVISOR) Sepsis Lactate 7.9(C) 0.7 - 2.0 mmol/L Comment:Critical result call ed to and read back by Nima Lawler (ER Charge) on 09/09/2024 20:19:01 CST_ to Sera Burroughs. Blood 09/09/2024 8:07 PM TRAVEL INFORMATION CENTER SUPERVISOR 09/09/2024 8:12 PM TRAVEL INFORMATION CENTER SUPERVISOR us Ortiz Treviño MD LAB BLOOD ORDERABLES Final R esult ADELITA BARRIOS ([facility]) 1 [facility] [place] [address] * (ABNORMAL) eGFR (09/09/2024 8:07 PM TRAVEL INFORMATION CENTER SUPERVISOR) eGFR 37(L) >=60 mL/min/1. 73 m2 Comment: [...] last reviewed 2021. Blood 09/09/2024 8:07 PM TRAVEL INFORMATION CENTER SUPERVISOR 09/09/2024 8:11 PM TRAVEL INFORMATION CENTER SUPERVISOR us Ortiz Treviño MD LAB BLOOD ORDERABLES Final R esult ADELITA BARRIOS ([facility]) 1 [facility] Department [place] [address] * (ABNORMAL) Lipase (09/09/2024 8:07 PM TRAVEL INFORMATION CENTER SUPERVISOR) Lipase 1,150(H) 10 - 99 Units/L Blood 09/09/2024 8:07 PM TRAVEL INFORMATION CENTER SUPERVISOR 09/09/2024 8:11 PM TRAVEL INFORMATION CENTER SUPERVISOR Ortiz Treviño MD LAB BLOOD ORDERABLES Final R esult Performing Organization Address City/[facility] Co de Phone Number ADELITA BARRIOS ([place]) 1 [facility] [place] [address] * (ABNORMAL) Blood gas, venous (09/09/2024 8:07 PM TRAVEL INFORMATION CENTER SUPERVISOR) pH, Venous 6.92(C) 7.32 - 7.43 Comment:Critical result call ed to and read back by Nima Lawler (ER Charge) on 09/09/2024 20:28:21 CST_ to Sera Celestinkristy. PCO2, Venous See Comment 40 - 50 mmHg ADELITA BARRIOS ([facility]) Comment:Value below reportab le range. No result given. PO2, Venous 197 mmHg ADELITA Majano ([facility]) HCO3 Venous, Calculated See Comment 20 - 30 mmol/L ADELITA BARRIOS ([facility]) Comment:No result given. BE, venous See Comment mmol/L ADELITA BARRIOS ([facility]) Comment: No result given. Interpretive Data No Reference Range Established Current Interpretive Data was last revised on 2018. Blood 09/09/2024 8:07 PM TRAVEL INFORMATION CENTER SUPERVISOR 09/09/2024 8:20 PM TRAVEL INFORMATION CENTER SUPERVISOR Ortiz Treviño MD LAB BLOOD ORDERABLES Final R [facility] Performing Organization Address City/[facility] Co de Phone Number ADELITA BARRIOS ([facility]) 1 [facility] [place] [address] * Ethanol (09/09/2024 8:07 PM TRAVEL INFORMATION CENTER SUPERVISOR) Ethanol <10 <=10 mg/dL Comment: Interpretive Data Legal limit of intoxication > or = 80 mg/dL Levels > or = 400 mg/dL are potentially TOXIC. Current interpretive data was last revised on 2018. Blood 09/09/2024 8:07 PM TRAVEL INFORMATION CENTER SUPERVISOR 09/09/2024 8:11 PM TRAVEL INFORMATION CENTER SUPERVISOR us Ortiz Treviño MD LAB BLOOD ORDERABLES Final R esult ADELITA [facility]) 1 [facility] Department [place] [address] * (ABNORMAL) Comprehensive metabolic panel (09/09/2024 8:07 PM TRAVEL INFORMATION CENTER SUPERVISOR) Sodium 130(L) 135 - 145 mmol/L Potassium, pl 6.2(C) 3.3 - 4.9 mmol/L [facility] ([place]) Comment:Critical Result call ed by [email or web address] at 2024-09-09 20:53:33. Result Read Back by [...] [facility] ([place]) Comment: Critical Result called by [email or web address] at 2024-09-09 20:53:40. Result Read Back by [...] [facility] ([place]) Blood 09/09/2024 8:07 PM TRAVEL INFORMATION CENTER SUPERVISOR 09/09/2024 8:11 PM TRAVEL INFORMATION CENTER SUPERVISOR us Ortiz Treviño MD LAB BLOOD ORDERABLES Final R esult [facility] ([place]) 1 [facility] Department [place] [address] * XR Chest 1 Vw Portable (09/09/2024 7:53 PM TRAVEL INFORMATION CENTER SUPERVISOR) Anatomical Region Laterality Modality Body, Chest N/A Computed Radiogr aphy 09/09/2024 8:43 PM TRAVEL INFORMATION CENTER SUPERVISOR Narrative 09/09/2024 8:46 PM TRAVEL INFORMATION CENTER SUPERVISOR EXAM DESCRIPTION: XR CHEST 1 VIEW REASON [...] PM T: ??09/09/2024 8:46 PM Report ID: [id number] Reading Location: ??[id number] Procedure Note Cruz Craig MD - 09/09/2024 [...] Cruz Craig M.D. AT: AT Report ID: [id number] Reading Location: [place] [address] Ortiz Treviño MD IMG XR PROCEDURES Final Resu lt * (ABNORMAL) POCT glucose (09/09/2024 7:40 PM TRAVEL INFORMATION CENTER SUPERVISOR) Pathologist [facility] Glucose, POC >600(C) 70 - 199 mg/dL Comment:Glu2: RN/ Notified Blood 09/09/2024 7:40 PM TRAVEL INFORMATION CENTER SUPERVISOR 09/09/2024 7:40 PM TRAVEL INFORMATION CENTER SUPERVISOR Ortiz Treviño MD LAB POCT ORDERABLES - DEVICE Final Result [facility] ([facility]) 1 [facility] Department [place] [address] * Influenza A/B, RSV, and COVID-19 PCR Nasopharyngeal (09/09/2024 7:29 PM TRAVEL INFORMATION CENTER SUPERVISOR) [facility] COVID-19 RNA Negative Negative Influenza A RNA Negative Negative [facility] ([place]) Influenza B RNA Negative Negative [facility] ([facility]) RSV RNA Negative Negative [facility] ([facility]) Comment: Interpretive data: Testing performed by [facility]. This test is performed using the PLDT Xpert Xpress CoV-2/Flu/RSV plus assay. This is a multiplex, real- time reverse transcriptase PCR assay intended for the qualitative detection of nucleic acid from SARS-CoV-2, influenza A, influenza B, and respiratory syncytial virus. This assay has been cleared by the [place] Food and Drug administration. The performance characteristics have been verified by the [facility]. ?? Results must be considered in the clinical context, and a negative result does not rule out infection. Interpretive Data last revised 2023 Nasopharyngeal 09/09/2024 7: 29 PM TRAVEL INFORMATION CENTER SUPERVISOR 09/09/2024 7:32 PM TRAVEL INFORMATION CENTER SUPERVISOR Narrative [facility]ITA [facility] ([facility]) - 09/09/2024 8:13 PM TRAVEL INFORMATION CENTER SUPERVISOR Is the Patient experiencing symptoms consistent with COVID?->Unknown Ortiz Treviño MD LAB MICROBIOLOGY - GENERAL O RDERABLES Final Result Performing Organization Address City/[facility]/ZIP Co de Phone Number ADELITA [facility] ([facility]) 1 [facility] Department [place] [address] * ECG 12 lead (09/09/2024 7:23 PM TRAVEL INFORMATION CENTER SUPERVISOR) 09/09/2024 7:23 PM TRAVEL INFORMATION CENTER SUPERVISOR Narrative [facility] - 09/10/2024 10:49 PM TRAVEL INFORMATION CENTER SUPERVISOR Vent Rate: 155 bpm RR Interval: 386 msec CA Interval: 0 msec QRS Duration: 101 msec QT Interval: 286 msec QTC Interval: 373 msec P-R-T [place]: 95132 - 62 - 76 degrees IMPRESSION: Sinus TACHYCARDIA POSSIBLE INFERIOR MYOCARDIAL INFARCTION , OF INDETERMINATE AGE [30 ms Q WAVE IN II/aVF] NO CHANGE FROM PREVIOUS TRACING NOTED Electronically Signed By: Orville Red MD Ortiz Treviño MD ECG ORDERABLES Final Result Performing Organization Address [facility]/ZIP Co de Phone Number [facility] [employer] [facility] * (ABNORMAL) eGFR (09/09/2024 6:34 PM TRAVEL INFORMATION CENTER SUPERVISOR) [facility] eGFR 38(L) >=60 mL/min/1. 73 m2 Comment: [...] last reviewed 2021. Blood 09/09/2024 6:34 PM TRAVEL INFORMATION CENTER SUPERVISOR 09/09/2024 6:44 PM TRAVEL INFORMATION CENTER SUPERVISOR us Juanpablo Ramirez MD LAB BLOOD ORDERABLES Final Resul t ADELITA BARRIOS ([facility]) 1 [facility] Department [place] [address] * (ABNORMAL) CBC with auto differential (09/09/2024 6:34 PM TRAVEL INFORMATION CENTER SUPERVISOR) WBC 20.4(H) 3.8 - 9.9 K/cumm Hgb 14.2 13.0 - 17.5 g/dL [facility] ([place]) Hct 46.4 38.9 - 50.3 % [facility] ([place]) Plt 302 150 - 400 K/cumm [facility] ([place]) MPV 11.1 9.1 - 12.3 fL [facility] ([place]) RBC 4.89 4.30 - 5.80 M/cumm [facility] ([place]) MCV 94.9 81.3 - 96.4 fL [facility] MCH 29.0 27.1 - 33.3 pg [facility] ([place]) MCHC 30.6(L) 32.3 - 35.7 g/dL [facility] ([place]) RDW CV 13.0 11.1 - 14.9 % [facility] RDW SD 45.6 35.7 - 48.1 fL [facility] NRBC abs 0.00 0.00 - 0.01 K/cumm [facility] Blood 09/09/2024 6:34 PM TRAVEL INFORMATION CENTER SUPERVISOR 09/09/2024 7:21 PM TRAVEL INFORMATION CENTER SUPERVISOR Ortiz Treviño MD LAB BLOOD ORDERABLES Final R esult [facility] ([facility]) 1 [facility] Department [place] [address] * (ABNORMAL) Manual Differential (09/09/2024 6:34 PM TRAVEL INFORMATION CENTER SUPERVISOR) Differential Manual Cells Counted 100 [facility] ([place]) Neutrophil abs 18.6(H) 1.5 - 6.5 K/cumm [facility] ([place]) Imm gran abs 0.0 0.0 - 0.1 K/cumm [facility] ([place]) Lymphocyte abs 0.8 0.8 - 3.3 K/cumm [facility] ([place]) Monocyte abs 1.0(H) 0.2 - 0.8 K/cumm [...] [facility] ([place]) Blood 09/09/2024 6:34 PM TRAVEL INFORMATION CENTER SUPERVISOR 09/09/2024 7:21 PM TRAVEL INFORMATION CENTER SUPERVISOR us Ortiz Treviño MD LAB BLOOD ORDERABLES Final R esult [facility] ([place]) 1 [facility] Department [place] [address] * (ABNORMAL) Basic metabolic panel (09/09/2024 6:34 PM TRAVEL INFORMATION CENTER SUPERVISOR) Sodium 131(L) 135 - 145 mmol/L Potassium, pl 6.9(C) 3.3 - 4.9 mmol/L [facility] ([place]) Comment:Critical Result call ed by [email or web address] at 2024-09-09 19:22:26. Result Read Back by [...] [facility] ([place]) Comment: Critical Result called by [email or web address] at 2024-09-09 19:22:26. Result Read Back by [...] Calcium 8.8 8.5 - 10.3 mg/dL ADELITA BARRIOS ([facility]) Blood 09/09/2024 6:34 PM TRAVEL INFORMATION CENTER SUPERVISOR 09/09/2024 6:44 PM TRAVEL INFORMATION CENTER SUPERVISOR us Juanpablo Ramirez MD LAB BLOOD ORDERABLES Final Resul t ADELITA BARRIOS ([facility]) 1 [facility] [place] [address] * (ABNORMAL) POCT glucose (09/09/2024 6:17 PM TRAVEL INFORMATION CENTER SUPERVISOR) Glucose, POC >600(C) 70 - 199 mg/dL Comment:Glu2: Blood 09/09/2024 6:17 PM TRAVEL INFORMATION CENTER SUPERVISOR 09/09/2024 6:17 PM TRAVEL INFORMATION CENTER SUPERVISOR us Notinfile Unknown LAB POCT ORDERABLES - DEVICE F inal Result ADELITA BARRIOS ([facility]) 1 [facility] [place] [address] from Last 3 Months Additional Health Concerns Infection Onset Date Last Indicated MRSA 09/10/2024 09/10/2024 Insurance [facility] H[facility]PPO Address: [address] [address] [facility] H[facility]/PPO Address: [address] [address] Advance Directives For more information, please contact: [phone] * Full Code (Latest Code Status on File) Date Activated Date Inactivated Comments 09/13/2024 1:54 PM 09/14/2024 7:29 PM * Full Code Date Activated Date Inactivated Comments 09/10/2024 6:45 AM 09/13/2024 1:54 PM Care Teams Speech Language Pathology Assistant Relationship Specialty Start Date End Date Trell Crow DO [address] [facility] [address] [place] [address] [address] [place] [address] PCP - General Internal Medicine 09/09/24 Chris Caraballo MD [address] [place] [address] [address] [place] [address] Consulting Physician Gastroenterology 09/14/24
--- OUTSIDE RECORDS SUMMARY | 2024-11-10 13:48 | XMS_ITS | Clinical Summary ---
Author Organization [facility] Address [address], [address] [address] Phone Care Team Providers Care Product Development Technician Name Role Phone Unavailable Primary Care Provider Unavailabl e Social History Tobacco Use Types Packs/Day Years Used Date Smoking Tobacco: Never Assessed Sex and Gender Information Value Date Recorded Sex Assigned at Not on file Legal Sex Male 10:27 PM CDT Gender Identity Not on file Sexual Orientation Not on file Plan of Treatment Health Maintenance Due Date Last Done Comments Hepatitis C Virus (HCV) Screening 1965 TdaP Immunization 1965 Hepatitis B Immunization (1 of 3 - 19+ 3-dose series) 1984 Colonoscopy 2010 Colorectal Cancer Screening 2010 Cologuard 2015 Immunochemical Fecal Occult Blood 2015 Pneumococcal Immunization (5 0+ years) (1 of 1 - PCV) 2015 Zoster Immunization (1 of 2) 2015 PSA Discussion 2020 Influenza Immunization (#1) 2024 SARS-COV-2 Immunization ( - 2023-25 season) 2024 Respiratory Syncytial Virus (RSV) Immunization (Adult) (1 - 1-dose 75+ series) 2040 Meningococcal Immunization (ACWY) Aged Out No longer eligible based on patient's age to complete this topic Pneumococcal Immunization Combined Aged Out No longer eligible based on patient's age to complete this topic Rotavirus Immunization Aged Out No lo nger eligible based on patient's age to complete this topic Insurance [place]ICAID [place]
== END 2024-11-07 13:53 | disposition home or self-care (01) ==
LOC: ANHLAB 13:53
PROVIDERS: PCP Nurse Practitioner; Visit Provider Nurse Practitioner
DX: E78.5 Hyperlipidemia, unspecified (principal); E11.9 Type 2 diabetes mellitus without complications
CPT/HCPCS: 36415; 83036